=== PATIENT | female | born 1935 | race Two or more races ===

== ENCOUNTER 2019-09-05 03:07 | Inpatient (IN) | payer OTHER ==
[~2019-09-05] VITALS: Ht 165.1 cm; Wt 50.3 kg
--- NOTE | 2019-09-05 03:31 | NUR ---
CALI FROM HOME TO ER BED 10. AAOX4. KENYAN SPEAKING FAMILY AT BEDSIDE TO TRANSLATE. CAME IN ON GURNEY. C/O THROAT PAIN WHICH HAS BEEN AGGREVATED BY COUGHING. 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 PT THE DEVELOPED COUGHING WHICH AGGREVATES HER THROAT PAIN MORE. PT HAS BEEN REPORTED TO HAVE POOR ORAL INTAKE D/T THE PAIN. PT IS NOTED WITH GEN WEAKNESS. WAS ST BEDSIDE FOR ADRY.
--- NOTE | 2019-09-05 03:50 | NUR ---
IV LINE OBTAINED ON THE L AC 20G. BLOOD DRAWN AND GIVEN TO ALIGNER TYPEWRITER AT BEDSIDE
[2019-09-05 03:53] LABS: BASOPHILS % (AUTO) 0.1 % (0.0-2.0); EOSINOPHILS % (AUTO) 0.1 % (0.0-6.0); HEMATOCRIT 28 % (33-45); HEMOGLOBIN 8.5 g/dL (11.5-14.8); LYMPHOCYTES # (AUTO) 0.3 /CMM (0.8-4.8); LYMPHOCYTES % (AUTO) 2.4 % (20.0-44.0); MEAN CORPUSCULAR HGB CONC 30 g/dl (31.0-36.0); MEAN CORPUSCULAR VOLUME 73 fL (82-100); MONOCYTES # (AUTO) 0.6 /CMM (0.1-1.30); MONOCYTES % (AUTO) 4.5 % (2.0-12.0); NEUTROPHILS # (AUTO) 12.3 /CMM (1.8-8.9); NEUTROPHILS % (AUTO) 92.9 % (43.0-81.0); PLATELET COUNT (AUTO) 230 /CMM (150-450); RED BLOOD CELL COUNT(AUTO) 3.85 MIL/uL (4.0-5.2); WHITE BLOOD COUNT (AUTO) 13.2 K/uL (4.3-11.0)
[2019-09-05] MEDS ORDERED: IV NS 0.9% 1,000 ML IV PRN (04:00)
[2019-09-05 04:01] LABS: CALCIUM, SERUM 8.4 mg/dL (8.5-10.1); CARBON DIOXIDE 23 mmol/L (21-32); CHLORIDE 105 mmol/L (98-107); CREATININE 1.9 mg/dL (0.6-1.3); GLUCOSE 171 mg/dL (74-106); POTASSIUM 4.6 mmol/L (3.5-5.1); SODIUM SERUM 137 mmol/L (136-145); UREA NITROGEN, BLOOD 34 mg/dL (7-18)
[2019-09-05] MEDS ORDERED: MORPHINE SULFATE INJ 2 MG/ML DISP.SYRIN ONE (04:21)
[2019-09-05] MEDS ORDERED: ONDANSETRON HCL/PF 4 MG/2 ML VIAL ONE (04:22)
[2019-09-05] MEDS ORDERED: ACETAMINOPHEN 325 MG TABLET PO PRN (04:30)
[2019-09-05] MEDS ORDERED: Z GUARD REMEDY 2 OZ OINT TP PRN (04:30)
[2019-09-05] MEDS ORDERED: DEXTROSE 50%-WATER 50 ML DISP.SYRIN IV PRN (04:30)
[2019-09-05] MEDS ORDERED: ZOLPIDEM TARTRATE 5 MG TABLET PO PRN (04:30)
[2019-09-05] MEDS ORDERED: HYDROCODONE/APAP 5/325MG 1 EACH TABLET PO PRN (04:30)
[2019-09-05] MEDS ORDERED: MAGNESIUM HYDROXIDE 30 ML UDC PO PRN (04:30)
[2019-09-05] MEDS ORDERED: MORPHINE SULFATE INJ 2 MG/ML DISP.SYRIN IV ONE (04:30)
[2019-09-05] MEDS ORDERED: CEFTRIAXONE 1 G in IV D5W 50 ML IV ONE (05:00)
[2019-09-05] MEDS ORDERED: ONDANSETRON HCL/PF 4 MG/2 ML VIAL IV ONE (05:00)
[2019-09-05] MEDS ORDERED: AZITHROMYCIN 500 MG in IV D5W 250 ML IV ONE (05:00)
[2019-09-05] MEDS ORDERED: CEFTRIAXONE 1GM BAG (ER ONLY) 50 ML IV ONE (05:24)
[2019-09-05] MEDS ORDERED: AZITHROMYCIN 500 MG VIAL ONE (05:24)
[2019-09-05] MEDS: BLOOD SUGAR DIAGNOSTIC 1 EACH STRIP IN SCH ×4 (07:30→21:53)
--- NOTE | 2019-09-05 07:44 | NUR ---
REPROT GIVEN TO VIKRAM BONILLA FOR LEANDER
--- NOTE | 2019-09-05 07:46 | NUR ---
PT ENDORSED TO VIKRAM WALKER FOR LEANDER
[2019-09-05 08:30] VITALS: BP 127/81
--- NOTE | 2019-09-05 08:30 | NUR ---
RN ADMITTING NOTES ADMITTED A 83 YEARS OLD, F TO UNIT VIA GURNEY ACCOMPANIED BY FAMILY AND E.R NURSE . A/O X4 AMHARIC SPEAKING ONLY, FAMILY AT BEDSIDE TO TRANSLATE. NO COMPLAIN OF PAIN AT THIS TIME, NOT IN ANY SIGNS OF DISTRESS. BREATHING EVEN AND UNLABORED. ON TELE MONITORING WITH CURRENT READING OF AFIB WITH EPISODE OF PVC, HR OF 102. V/S TAKEN AND RECORDED. REFUSED PHYSICAL ASSESSMENT, PER FAMILY NO OPEN WOUNDS. ABDOMEN SOFT, NON-DISTENDED WITH POSITIVE BOWEL SOUNDS ON FOUR QUADRANTS. LUNGS CLEAR ON AUSCULTATION. IV ACCESS ON LAC #20, INTACT AND PATENT. IVF TO BE STARTED. SAFETY MEASURES INITIATED, BED PLACED IN LOW LOCKED POSITION WITH SIDE RAILS UP X2. CALL LIGHT PLACED WITHIN EASY REACH OF PATIENT. WILL CONTINUE TO MONITOR.
[2019-09-05] MEDS: IV NS 0.9% 1,000 ML IV PRN (08:40)
[2019-09-05] MEDS ORDERED: IBUP-1953 PO (09:24)
[2019-09-05] MEDS ORDERED: CALC-20 PO (09:24)
[2019-09-05] MEDS ORDERED: INSU100V10 SQ (09:24)
[2019-09-05] MEDS ORDERED: ALEN70TA6 PO (09:24)
[2019-09-05] MEDS ORDERED: HYDR100T27 PO (09:24)
[2019-09-05] MEDS ORDERED: BENA40TA8 PO (09:24)
[2019-09-05] MEDS ORDERED: ACET500C4 PO (09:24)
[2019-09-05] MEDS ORDERED: NPH,100V2 SQ (09:24)
[2019-09-05] MEDS ORDERED: AMLO5TAB4 PO (09:24)
[2019-09-05] MEDS: OSELTAMIVIR PHOSPHATE 75 MG CAPSULE PO SCH (11:00)
[2019-09-05] MEDS: INSULIN REGULAR, HUMAN 100 UNIT/ML 3 ML VIAL SQ PRN ×3 (11:12→21:54)
[2019-09-05 12:43] LABS: ABG BASE EXCESS -7.3 mmol/L; ABG OXYGEN SATURATION 88.4 % (92.0-98.5); ABG PCO2 38.2 mmHg (35.0-45.0); ABG PH 7.303 (7.350-7.450); ABG PO2 66.6 mmHg (75.0-100.0); AaDO2 37.4 mmHg; COHb 0.5 % (0.5-1.5); MetHb 0.5 % (0.0-1.5); O2Hb 87.5 % (94.0-97.0); SITE, ABG Right Radial; VENT MODE, BG Room Air
[2019-09-05 16:00] VITALS: BP 130/85
--- NOTE | 2019-09-05 18:43 | NUR ---
RN CLOSING NOTES PATIENT IN BED RESTING COMFORTABLY IN MODERATE HIGH BACK REST. A/O X3. OMANI SPEAKING ONLY. NO SIGNS OF DISTRESS NOTED THROUGHOUT THE SHIFT. IV FLUIDS ON LEFT AC #20 WITH NS @75ML/HR. PATENT AND INTACT. ON TELE MONITORING WITH CURRENT READING OF A-FIB, HR OF 110. NO COMPLAIN OF PAIN AT THIS TIME. SAFETY MEASURES IN PLACE, BED IN LOW LOCKED POSITION WITH SIDE RAILS UP X2. CALL LIGHT WITHIN EASY REACH. WILL ENDORSE TO VIDEO ENGINEER NURSE FOR LEANDER.
--- NOTE | 2019-09-05 19:00 | NUR ---
RN OPENING NOTES Received patient asleep on bed, easily awaken. On RA, no SOB/respiratory distress noted at this time. No s/sx of discomfort. On tele monitor with Afib noted, no other unusualities noted. On IVF with NS @ 75ml/hr as ordered, infusing well. Kept on bed clean, dry and comfortable. Call light within easy reach. On fall and aspiration precautions. Will continue to monitor accordingly.
[2019-09-05 20:00] VITALS: BP 143/93
[2019-09-05 21:25] VITALS: BP 143/93
--- NOTE | 2019-09-05 21:55 | NUR ---
RN NOTES Patient's blood sugar 141mg/dl. Patient on NPO. Held Insulin at this time. Patient denies any discomfort. Instructed on s/sx of hypoglycemia, and to notified HCP immediately for any unusualities, patient verbalized understanding. Will continue to monitor accordingly.
[2019-09-06] VITALS (23 sets, daily range): BP systolic 69–160; BP diastolic 41–97
--- NOTE | 2019-09-06 01:25 | NUR ---
RN NOTES PATIENT REMAINED AFIB HR 120-135. PATIENT DENIES ANY DISCOMFORT, PATIENT CLAIMED FEELING HEART PALPITATIONS. V/S CHECKED, WNL. NOTIFIED INTENSIVE CARE NURSE MD WITH ORDERS NOTED AND CARRIED OUT.
[2019-09-06] MEDS ORDERED: DILTIAZEM HCL 25 MG IV IV ONE (01:30)
[2019-09-06] MEDS ORDERED: DILTIAZEM HCL 25 MG IV ONE (01:46)
[2019-09-06 01:58] LABS: BASOPHILS % (AUTO) 0.4 % (0.0-2.0); EOSINOPHILS % (AUTO) 0.1 % (0.0-6.0); HEMATOCRIT 30 % (33-45); LYMPHOCYTES # (AUTO) 0.8 /CMM (0.8-4.8); LYMPHOCYTES % (AUTO) 10.6 % (20.0-44.0); MEAN CORPUSCULAR HGB CONC 30 g/dl (31.0-36.0); MEAN CORPUSCULAR VOLUME 74 fL (82-100); MONOCYTES # (AUTO) 0.5 /CMM (0.1-1.30); NEUTROPHILS # (AUTO) 6.2 /CMM (1.8-8.9); NEUTROPHILS % (AUTO) 81.9 % (43.0-81.0); PLATELET COUNT (AUTO) 211 /CMM (150-450); RED BLOOD CELL COUNT(AUTO) 4.01 MIL/uL (4.0-5.2); WHITE BLOOD COUNT (AUTO) 7.6 K/uL (4.3-11.0)
[2019-09-06] MEDS: ONDANSETRON HCL/PF 4 MG/2 ML VIAL IVP PRN ×2 (02:04→08:32)
[2019-09-06] MEDS: IV NS 0.9% 1,000 ML IV PRN (02:05)
[2019-09-06 02:09] LABS: ALANINE AMINOTRANSFERASE 39 U/L (12-78); ALKALINE PHOSPHATASE 69 U/L (46-116); ASPARTATE AMINOTRANSFERASE 73 U/L (15-37); BILIRUBIN,TOTAL 1.3 mg/dL (0.2-1.0); CALCIUM, SERUM 7.9 mg/dL (8.5-10.1); CARBON DIOXIDE 21 mmol/L (21-32); CHLORIDE 107 mmol/L (98-107); CREATININE 3.3 mg/dL (0.6-1.3); GLUCOSE 127 mg/dL (74-106); MAGNESIUM 1.9 mg/dL (1.8-2.4); PHOSPHORUS 5.8 mg/dL (2.5-4.9); SODIUM SERUM 140 mmol/L (136-145); TOTAL PROTEIN, SERUM 6.7 g/dL (6.4-8.2); UREA NITROGEN, BLOOD 43 mg/dL (7-18)
[2019-09-06 02:20] LABS: CHOLESTEROL 76 mg/dL (<200); CREATINE KINASE, TOTAL 71 U/L (26-192); HDL CHOLESTEROL 27 mg/dL (40-60); LDL 43 mg/dL (0-99); TRIGLYCERIDES 46 mg/dL (30-150)
[2019-09-06] MEDS ORDERED: Calcium Gluconate 1GM/10ML 4.65 MEQ in IV NS 0.9% 40 ML IV ONE (03:30)
--- NOTE | 2019-09-06 04:38 | NUR ---
RN NOTES taping supervisor notified for Calcium gluconate - supply to be provided per Katey.
[2019-09-06] MEDS ORDERED: Calcium Gluconate 0.465 MEQ/ML VIAL IV ONE (05:27)
--- NOTE | 2019-09-06 07:00 | NUR ---
Tele/RN Opening Note Received patient in bed, AO x 1-2, able to responds all stimuli. Respiratory even/unlabored, and in room air, no SOB or respiratory distress observed. Skin is warm to touch, kept lower bed position with elevated HOB. Call light within reach, will continue to monitor.
[2019-09-06] MEDS: BLOOD SUGAR DIAGNOSTIC 1 EACH STRIP IN SCH ×4 (07:09→23:41)
--- NOTE | 2019-09-06 07:24 | NUR ---
RN CLOSING NOTES Patient asleep on bed, easily awaken. On RA, no SOB/respiratory distress noted. With complaints of abdominal pain, patient unable to tolerated PO meds. On tele monitor with Afib noted. All due meds given as ordered. All nursing needs attended. Kept on bed clean, dry and comfortable. On fall and aspiration precautions. Call light within easy reach. Endorsed.
[2019-09-06] MEDS: HEPARIN SODIUM, PORCINE 5000 UNITS/1 ML VIAL SQ SCH ×2 (08:31→20:54)
[2019-09-06] MEDS: CEFTRIAXONE 1 G in IV D5W 50 ML IV SCH (08:31)
--- NOTE | 2019-09-06 09:00 | NUR ---
GENERAL OPERATOR NOTES PATIENT FOUND UNRESPONSIVE. DR. LOMBARDI AT BEDSIDE ORDERS FOR STAT ABG. VS 69/41 PULSE: 121, O2SAT. 77%, RESPIRATION 7. RAPID RESPONSE CALLED. ER MD CALLED BY DR. LOMBARDI TO INTUBATE PATIENT. PATIENT PLACED ON 10L OXYGEN. 0905: RAPID RESPONSE TEAM AT BEDSIDE. ER MD AT BEDSIDE PREPARING TO INTUBATE. DR. TILLMAN AT BEDSIDE WITH PATIENT. 0910: PATIENT INTUBATED. SATURATING AT 100%. BP AT 85/52 PULSE 110 . 0915: PATIENT TO BE TRANSFERRED TO ROOM 260, VS: 92/56 PULSE 115. ANEUDY WEBER MADE AWARE OF PATIENTS CONDITION. 0920: PATIENT TRANSFERRED TO ROOM 260 REPORT GIVEN AT BEDSIDE.
--- NOTE | 2019-09-06 09:15 | NUR ---
TRAINING PROFESSIONAL NOTES CALLED PATIENTS DAUGHTER AND LEFT A VOICE MAIL.
--- NOTE | 2019-09-06 09:20 | NUR ---
RN NOTE: Received patient from [facility] and patient was brought to Room 260 with VIKRAM Leiva with the RTs upon transport. Bedside report was received from VIKRAM Leiva upon transfer. No family at the bedside but upon report the patient's daughter was called about the change of condition of the patient. Patient was asleep and intubated with ETT 7.5 and was attached to the lip line at 22cm. Patient was placed on a comfortable position. Patient was placed on (B) soft wrist restraints to prevent accident self-extubation or pulling of lines. Called and informed Dr. Adonay Carnes about this in order to get a sedation medication for the patient. (L) AC 20G was noted in placed with NS@75ml/hr. Patient was attached to the bedside monitor for continuous monitoring. RT Stephens was at the bedside and was trying to draw ABG. And per , draw ABG after 30 mins after intubation. CN Sundeep inserted (R) hand 20G and (R) forearm 18G. Carcamo catheter was placed for intake/output monitoring. Bed alarmed and locked at all times. Needs anticipated.
--- NOTE | 2019-09-06 09:38 | NUR ---
RT NOTE PT INTUBATED PER MD ORDER. 7.5 ETT 22 CM AT LIP. CUFF INFLATED. ETT SECURE. VENTILATOR SETTINGS FOLLOW AC 16 450 100% +5. ALARMS SET PER PROTOCOL AND AUDIBLE. VENT PLUGGED IN TO RED OUTLET. AMBU BAG AT BED SIDE. Addendum: 09/06/19 at 0940 by PATSY LOMELI RT Amended: Links added.
[2019-09-06] MEDS ORDERED: PROPOFOL 10MG/ML 50ML 50 ML IV PRN (10:00)
--- NOTE | 2019-09-06 10:00 | NUR ---
VISUAL MERCHANDISING DIRECTOR NOTES PATIENTS DAUGHTER MADE AWARE OF PATIENTS TRANSFER.
--- NOTE | 2019-09-06 10:00 | NUR ---
RN NOTE: Adonay Carnes DNP was aware of the patient's condition at this time including the uncontrolled A. fib HR= 104. And Adonay Carnes DNP gave no new order. Will continue to monitor the patient's heart rhythm.
[2019-09-06] MEDS: PROPOFOL 100 ML IV PRN ×2 (10:08→20:29)
[2019-09-06 10:28] LABS: ABG BASE EXCESS -15.6 mmol/L; ABG OXYGEN SATURATION 99.2 % (92.0-98.5); ABG PCO2 23.7 mmHg (35.0-45.0); ABG PH 7.248 (7.350-7.450); ABG PO2 388.3 mmHg (75.0-100.0); COHb 0.3 % (0.5-1.5); MetHb 0.4 % (0.0-1.5); O2Hb 98.5 % (94.0-97.0); PEEP,BG 5 cm H2O; SITE, ABG Right Radial; VENT MODE, BG AC 16 450 100% +5; VT, ABG 450 mL
[2019-09-06] MEDS ORDERED: SODIUM POLYSTYRENE SULFONATE 15 G/60 ML BOTTLE NG ONE (10:30)
[2019-09-06] MEDS: AZITHROMYCIN 500 MG in IV D5W 250 ML IV SCH (10:45)
--- NOTE | 2019-09-06 11:30 | NUR ---
RN NOTE: Patient's daughter Laina Wren present at the bedside and gave her an updated regarding the patient's condition and plan of care. Full dentures were placed on the denture cap and was returned to the family to bring at home.
[2019-09-06] MEDS: OSELTAMIVIR PHOSPHATE 75 MG CAPSULE PO SCH (11:44)
[2019-09-06 13:43] LABS: ABG BASE EXCESS -14.9 mmol/L; ABG PCO2 23.9 mmHg (35.0-45.0); ABG PH 7.262 (7.350-7.450); ABG PO2 158.3 mmHg (75.0-100.0); AaDO2 171.3 mmHg; COHb 0.3 % (0.5-1.5); O2Hb 96.7 % (94.0-97.0); PEEP,BG 5 cm H2O; SITE, ABG Right Radial; VT, ABG 450 mL
[2019-09-06] MEDS ORDERED: POTASSIUM CHLORIDE 10 MEQ/50 ML PREMIXED IVPB FOR PERIPHERAL LINE IV ONE (14:30)
[2019-09-06] MEDS ORDERED: DEXTROSE 50%-WATER 50 ML DISP.SYRIN IV PRN (15:00)
[2019-09-06] MEDS ORDERED: GLUCERNA 1.2 1,000 ML BOTTLE NG PRN (15:00)
[2019-09-06] MEDS: INSULIN REGULAR, HUMAN 100 UNIT/ML 3 ML VIAL SQ PRN ×3 (15:22→23:44)
[2019-09-06] MEDS ORDERED: Sodium Acetate 150 MEQ in IV D5W 1,000 ML IV PRN (15:30)
[2019-09-06] MEDS: SOD FERRIC GLUC 125 MG in IV NS 0.9% 100 ML IV SCH (15:31)
--- NOTE | 2019-09-06 16:31 | NUR ---
RT PT RECEIVED INTUBATED VIA 7.5 ETT @ 22' LIPLINE AND ON [facility] VENT W CHARTED SETTINGS. VENT IS PLUGGED INTO RED OUTLET W [facility] AT [facility]. ALARMS ARE SET AND AUDIBLE. PT IS STABLE. NO RESPIRATORY DISTRESS NOTED T/O SHIFT. Addendum: 09/06/19 at 1742 by JULIO ELIAS RT Amended: Links added.
--- NOTE | 2019-09-06 18:00 | NUR ---
RN NOTE: Called and spoke with Ian, pharmacist and clarified with him regarding the order for the changed of IV fluid. According to him sodium acetate was not available and he changed the order to sodium bicarbonate in replacement.
--- NOTE | 2019-09-06 18:00 | NUR ---
RN NOTE: Patient placed on droplet precaution while pending for the influenza test.
[2019-09-06] MEDS: GLUCERNA 1.2 1,000 ML BOTTLE NG PRN (18:08)
[2019-09-06] MEDS: Sodium Bicarbonate 150 MEQ in IV D5W 1,000 ML IV PRN (18:10)
--- NOTE | 2019-09-06 19:10 | NUR ---
RN NOTE: Bedside report was given to VIKRAM Smith for continuity of care. Patient sedated and intubated and was placed on (B) soft wrist restraint to prevent the patient from pulling or self-extubating. HOB elevated. OGT feeding of Glucerna 1.2 @ 25ml/hr and patient was tolerating it well. Patient had 1 large amount of liquid stool after receiving Kayexalate per MD order. And IVF of Sodium acetate 150 meq @125ml/hr was being infused to the patient. Called and followed up with Tita manager parking regarding the BMP draw for the patient. And per Tita, she will be sending a laboratory clerk to draw the blood. Endorsed this to VIKRAM Smith to follow-up.
--- NOTE | 2019-09-06 19:20 | NUR ---
RN OPENING NOTES RECEIVED PATIENT IN BED, SEDATED. MECHANICAL VENT SETTINGS: AC 16, TV 450, FIO2 40%, PEEP 5. SATURATING 100% AT THE MOMENT, NO SOB OR RESPIRATORY DISTRESS NOTED. ON TELE MONITOR CONTROLLED AFIB WITH HR 80'S. IV SITES RIGHT HAND 20G AND RIGHT FA 18G BOTH FLUSHING AND PATENT; PROPOFOL RUNNING AT 15MCG, AND SODIUM BICARB 125ML/HR, NO INFILTRATION NOTED. BILATERAL SOFT WRIST RESTRAINTS NOTED FOR PT SAFETY. MENDOZA CATH INTACT. SAFETY MEASURES IN PLACE, BED IN LOW AND LOCKED POSITION, SIDE RAILS UP X2, CALL LIGHT WITHIN EASY REACH, HOB ELEVATED. ISOLATION PRECAUTION NOTED IN PLACE. WILL CONTINUE TO MONITOR CLOSELY.
[2019-09-06 21:20] LABS: CALCIUM, SERUM 7.8 mg/dL (8.5-10.1); CARBON DIOXIDE 20 mmol/L (21-32); CHLORIDE 107 mmol/L (98-107); GLUCOSE 231 mg/dL (74-106); POTASSIUM 5.2 mmol/L (3.5-5.1); SODIUM SERUM 141 mmol/L (136-145); UREA NITROGEN, BLOOD 54 mg/dL (7-18)
--- NOTE | 2019-09-06 21:30 | NUR ---
RN NOTES PATIENT OUTPUT LOW 15ML SINCE 1899. PT ON IVF. BLADDER NOTED TO BE SLIGHTLY DISTENDED, MENDOZA CATHETER FLUSHED AND NOTED TO BE PATENT. CHECKED OUTPUT WITH BLADDER SCANNER: 57ML. WILL CONT TO MONITOR PT CLOSELY.
[2019-09-07] VITALS (42 sets, daily range): BP systolic 98–163; BP diastolic 59–101
[2019-09-07] MEDS: Sodium Bicarbonate 150 MEQ in IV D5W 1,000 ML IV PRN (02:16)
[2019-09-07 04:50] LABS: BASOPHILS % (AUTO) 0.3 % (0.0-2.0); EOSINOPHILS % (AUTO) 0.7 % (0.0-6.0); HEMATOCRIT 28 % (33-45); HEMOGLOBIN 8.6 g/dL (11.5-14.8); LYMPHOCYTES # (AUTO) 0.9 /CMM (0.8-4.8); LYMPHOCYTES % (AUTO) 11.1 % (20.0-44.0); MEAN CORPUSCULAR HGB CONC 31 g/dl (31.0-36.0); MEAN CORPUSCULAR VOLUME 72 fL (82-100); MONOCYTES # (AUTO) 0.5 /CMM (0.1-1.30); MONOCYTES % (AUTO) 6.9 % (2.0-12.0); NEUTROPHILS # (AUTO) 6.3 /CMM (1.8-8.9); PLATELET COUNT (AUTO) 189 /CMM (150-450); RED BLOOD CELL COUNT(AUTO) 3.86 MIL/uL (4.0-5.2); WHITE BLOOD COUNT (AUTO) 7.7 K/uL (4.3-11.0)
[2019-09-07 05:02] LABS: ALANINE AMINOTRANSFERASE 52 U/L (12-78); ALBUMIN 2.4 g/dL (3.4-5.0); ALKALINE PHOSPHATASE 70 U/L (46-116); ASPARTATE AMINOTRANSFERASE 84 U/L (15-37); BILIRUBIN,TOTAL 0.7 mg/dL (0.2-1.0); CALCIUM, SERUM 7.5 mg/dL (8.5-10.1); CARBON DIOXIDE 23 mmol/L (21-32); CHLORIDE 105 mmol/L (98-107); CREATININE 4.2 mg/dL (0.6-1.3); GLUCOSE 228 mg/dL (74-106); PHOSPHORUS 6.3 mg/dL (2.5-4.9); POTASSIUM 4.1 mmol/L (3.5-5.1); SODIUM SERUM 140 mmol/L (136-145); TOTAL PROTEIN, SERUM 5.5 g/dL (6.4-8.2); UREA NITROGEN, BLOOD 59 mg/dL (7-18)
[2019-09-07] MEDS: BLOOD SUGAR DIAGNOSTIC 1 EACH STRIP IN SCH ×3 (05:46→17:12)
[2019-09-07] MEDS: INSULIN REGULAR, HUMAN 100 UNIT/ML 3 ML VIAL SQ PRN ×3 (05:48→17:13)
--- NOTE | 2019-09-07 07:16 | NUR ---
RN CLOSING NOTES PATIENT IN BED, SEDATED. NO ACUTE CHANGES THROUGHOUT SHIFT. MECHANICAL VENT SETTINGS ORDERED, SATURATING 100% AT THE MOMENT, NO SOB OR RESPIRATORY DISTRESS NOTED. ON TELE MONITOR CONTROLLED AFIB WITH HR 80'S. IV SITES RIGHT HAND 20G AND RIGHT FA 18G BOTH FLUSHING AND PATENT; PROPOFOL RUNNING AT 15MCG, AND SODIUM BICARB 125ML/HR, NO INFILTRATION NOTED. TUBE FEEDING RUNNING AT 35ML/HR, NO RESIDUAL NOTED. BILATERAL SOFT WRIST RESTRAINTS NOTED FOR PT SAFETY. MENDOZA CATH INTACT. KEPT PT CLEAN AND DRY. REPOSITIONED PT Q2H. SAFETY MEASURES IN PLACE, BED IN LOW AND LOCKED POSITION, SIDE RAILS UP X2, CALL LIGHT WITHIN EASY REACH, HOB ELEVATED. ISOLATION PRECAUTION NOTED IN PLACE. ENDORSED TO AM RN FOR LEANDER.
--- NOTE | 2019-09-07 07:48 | NUR ---
TIMING MACHINE OPERATOR NOTE PATIENT IN BED SEDATED ,ON PROPOFOL DRIP AT THIS TIME, WITH MENDOZA CATH TO GRAVITY WITH SMALL AMT OF URINE NOTED , VENT SETTING ORDERED, RT AT BEDSIDE SUCTION DONE , WITH ETT 7.5 TO LIP SIZE 23 CM , ON OJ TUBE ON GLUCERNA AT 35 ML PER HOUR , BED IN LOWEST AND LOCKED POSITION, ON NA BICARB AT 125 ML PER HOUR AT THIS TIME , WILL CONT TO MONITOR,O2 SAT AT THIS TIME 100% ON TELE MONITOR AFIB 91,
[2019-09-07 08:41] LABS: ABG BASE EXCESS 0.3 mmol/L; ABG PCO2 38.2 mmHg (35.0-45.0); ABG PH 7.427 (7.350-7.450); ABG PO2 93.1 mmHg (75.0-100.0); AaDO2 148.2 mmHg; COHb 0.2 % (0.5-1.5); MetHb 0.7 % (0.0-1.5); O2Hb 95.1 % (94.0-97.0); SITE, ABG Right Radial
--- NOTE | 2019-09-07 08:50 | NUR ---
CHRONOGRAPH OPERATOR NOTE ON DIPRIVAN VOCATION SEDATION, RASHEEDA AWAKE AND RESPONSE TO VERBAL AND TACTILE STIMULI ,BOTH EYE OPED ABLE UNDERSTANDS VERBAL COMMAND
[2019-09-07] MEDS: HEPARIN SODIUM, PORCINE 5000 UNITS/1 ML VIAL SQ SCH ×2 (09:05→21:09)
[2019-09-07] MEDS: AMLODIPINE BESYLATE 5 MG TABLET PO SCH (09:06)
[2019-09-07] MEDS: CALCIUM CARB 600MG /VIT D 1 EACH TABLET PO SCH (09:06)
[2019-09-07] MEDS: CEFTRIAXONE 1 G in IV D5W 50 ML IV SCH (09:10)
--- NOTE | 2019-09-07 09:42 | NUR ---
MANAGER ENTERPRISE NOTE DR ARMAS AT BEDSIDE AWARE NO URAN OUTPUT AT THIS TIME
--- NOTE | 2019-09-07 09:59 | NUR ---
OCEANOGRAPHER PHYSICAL NOTE BECOME MORE AGITATED DR TILLMAN AT BEDSIDE OK TO INCREASE DIPRIVAN DRIP AT 20 MG\MIN Addendum: 09/07/19 at 1048 by XIMENA ROLLE RN NO BUVERITO MURPHY AVAILABLE CALLED PHARMACY SPOKE WITH KYLIE CORDOBA THAT WILL BRING IT
[2019-09-07] MEDS ORDERED: BUMETANIDE INJ 4 MG in IV D5W 24 ML IV ONE (10:00)
[2019-09-07] MEDS: PROPOFOL 100 ML IV PRN (10:03)
[2019-09-07] MEDS: AZITHROMYCIN 500 MG in IV D5W 250 ML IV SCH (10:03)
[2019-09-07] MEDS: OSELTAMIVIR PHOSPHATE 75 MG CAPSULE PO SCH (10:37)
--- NOTE | 2019-09-07 11:16 | NUR ---
INKER AND OPAQUER NOTE DR TRAN AT BEDSIDE AWARE PATIENT CONDITION ,VERY SMALL URINE OUTPUT, OK TO CONT ON VENT SETTING AT THIS TIME Addendum: 09/07/19 at 1538 by XIMENA ROLLE RN DR TRAN AWARE THAT TROP 0.155
--- NOTE | 2019-09-07 11:39 | NUR ---
HEAD OF PRODUCT NOTE BUMEX DRIP STILL NOT AVAILABLE ,SPOKE WITH SCOOTER FROM PHARMACY, STATED WILL BRING SOON
[2019-09-07 12:06] LABS: PTH, INTACT 116 pg/mL (15-65)
[2019-09-07 13:06] LABS: *SPE A/G RATIO 0.9 (0.7-1.7); *SPE ALBUMIN 2.9 g/dL (2.9-4.4); *SPE ALPHA-1-GLOBULIN 0.3 g/dL (0.0-0.4); *SPE ALPHA-2-GLOBULIN 0.7 g/dL (0.4-1.0); *SPE BETA GLOBULIN 0.8 g/dL (0.7-1.3); *SPE GLOBULIN, TOTAL 3.4 g/dL (2.2-3.9); *SPE M-SPIKE Not Observed g/dL (Not Observed); *SPEGAMMA GLOBULIN 1.5 g/dL (0.4-1.8)
[2019-09-07] MEDS ORDERED: IV D5/ 0.9% NACL 1,000 ML IV PRN (14:30)
[2019-09-07] MEDS: SOD FERRIC GLUC 125 MG in IV NS 0.9% 100 ML IV SCH (14:53)
--- NOTE | 2019-09-07 15:22 | NUR ---
PRIVACY DIRECTOR NOTE SPOKE WITH DR TILLMAN NOTIFIED THAT PH TODAY FROM BLOOD GAS 7.427 HCO3 24.6 THAT ON IVF NA BICARB AT 125 ML PER HOUR ALSO AWARE THAT LACTIC ACID 2.4 WITH ORDER START D5 NS AT 75 ML PER HOUR WILL F\U
--- NOTE | 2019-09-07 15:31 | NUR ---
PROPERTY MANAGEMENT ACCOUNTANT NOTE UNABLE TO REMOVE RESTRAIN ,PATIENT AT RISK TO REMOVE ALL LINES
--- NOTE | 2019-09-07 16:49 | NUR ---
ASPHALT TAR AND GRAVEL ROOFER NOTE NEW HL ON LT FA INSERTED RACHID 22WITH GOD BLOOD REARM ALSO PER DR CHELSEA RIOS TO INSERT MID LINE
--- NOTE | 2019-09-07 17:18 | NUR ---
RT NOTE: PATIENT RECEIVED ORALLY INTUBATED WITH 7.5 ETT SECURED AT 22 CM MID LIP LINE VIA ANCHOR FAST ON PB 840 VENT. ALARMS VERIFIED AND AUDIBLE. SUCTIONED AND LAVAGED SMALL AMOUNT OF BLOODY SECRETIONS. VENT PLUGGED INTO RED OUTLET. AMBU BAG AT [facility].
--- NOTE | 2019-09-07 17:22 | NUR ---
MANAGER TRADE NOTE UA CALLECT
--- NOTE | 2019-09-07 17:22 | NUR ---
INSULATION WORKER FURNACE INSTALLER NOTE UA COLLECTED ORDERED ,CONT ON BUMEX DRIP BUT VERY SMALL URINE AMT OUTPUT
[2019-09-07 18:10] LABS: BILIRUBIN,DIRECT 0.2 mg/dL (0.0-0.2)
[2019-09-07 18:11] LABS: APPEARANCE,URINE SL CLOUDY (CLEAR); BILIRUBIN,URINE NEGATIVE (NEGATIVE); BLOOD, URINE LARGE Ery/uL (NEGATIVE); COLOR,URINE YELLOW (YELLOW); KETONES,URINE NEGATIVE (NEGATIVE); LEUKOCYTE ESTERASE ,URINE LARGE (NEGATIVE); NITRITE, URINE NEGATIVE (NEGATIVE); PROTEIN,URINE >=300 mg/dl (NEGATIVE); UGLUCOSE NEGATIVE (NEGATIVE); UROBILINOGEN,URINE 0.2 EU/dL (0.2)
[2019-09-07 18:21] LABS: CREATININE, URINE 16.2 MG/DL (30.0-125.0); URINE TOTAL PROTEIN 208.6 mg/dL (0-11.9)
[2019-09-07 18:23] LABS: BACTERIA,URINE 2+ /HPF (None Seen); RBC,URINE 51-80 /HPF (0-2); WBC,URINE 51-80 /HPF (0-3)
[2019-09-07 18:24] LABS: SQUAMOUS EPITHELIAL CELL,UR Few /HPF (None Seen)
[2019-09-07 18:34] LABS: EOSINOPHIL,URINE None Seen
--- NOTE | 2019-09-07 18:42 | NUR ---
BANK EXAMINER NOTE BP 166/[address] ZAMORA LEFT A MESSAGE , WILL AWAIT FOR RETURN CALL
--- NOTE | 2019-09-07 18:58 | NUR ---
BLADE GRADER OPERATOR NOTE DR TRAN CALLED BACK NOTIFIED THAT BP 166-170/82 AND LACTIC ACID 2.5 WITH ORDER GIVEN HYDRALAZINE AND REPEAT LACTIC ACID IN MORNING ,OK CONT IVF ORDERED
[2019-09-07] MEDS ORDERED: hydrALAZINE HCL 25 MG TABLET PO PRN (19:00)
[2019-09-08] VITALS (53 sets, daily range): BP systolic 101–176; BP diastolic 62–100
[2019-09-08] MEDS: INSULIN REGULAR, HUMAN 100 UNIT/ML 3 ML VIAL SQ PRN ×4 (00:42→17:34)
[2019-09-08] MEDS: BLOOD SUGAR DIAGNOSTIC 1 EACH STRIP IN SCH ×4 (00:42→17:32)
--- NOTE | 2019-09-08 07:00 | NUR ---
RN INITIAL NOTE RECEIVED BEDSIDE REPORT, PATIENT IN BED. SEDATED. [facility]LL AT 100%. CONTROLLED AFIB AT 78 FROM THE MONITOR. HAS MENDOZA CATH, WAS NOT GETTING ENOUGH OUTPUT PER NOC SHIFT. HAS CLEAR AND YELLOW URINE. ON NGT WITH GLUCERNA, NO RESIDUAL NOTED. HAS A RIGHT UA MIDLINE WITH PROPOFOL AT 15 MCG AND D5NS AT 75 ML/HR. HAS A RIGHT WRIST #22, ON TKO. WILL CONTINUE TO MONITOR CLOSELY Addendum: 09/08/19 at 0922 by SANTIAGO ORELLANA RN OGT*
[2019-09-08] MEDS: GLUCERNA 1.2 1,000 ML BOTTLE NG PRN (07:37)
[2019-09-08] MEDS: AMLODIPINE BESYLATE 5 MG TABLET PO SCH (08:27)
[2019-09-08] MEDS: CALCIUM CARB 600MG /VIT D 1 EACH TABLET PO SCH (08:27)
[2019-09-08] MEDS: HEPARIN SODIUM, PORCINE 5000 UNITS/1 ML VIAL SQ SCH ×2 (08:29→20:40)
[2019-09-08] MEDS: CEFTRIAXONE 1 G in IV D5W 50 ML IV SCH (08:30)
[2019-09-08 08:36] LABS: ABG BASE EXCESS -0.6 mmol/L; ABG PCO2 35.1 mmHg (35.0-45.0); ABG PO2 108.9 mmHg (75.0-100.0); AaDO2 135.9 mmHg; COHb 0.1 % (0.5-1.5); MetHb 0.6 % (0.0-1.5); O2Hb 96.3 % (94.0-97.0); PEEP,BG 5 cm H2O; SITE, ABG Right Radial; VT, ABG 450 mL
[2019-09-08] MEDS: AZITHROMYCIN 500 MG in IV D5W 250 ML IV SCH (09:55)
--- NOTE | 2019-09-08 10:00 | NUR ---
RN NOTE DR TRAN AT BEDSIDE, AWARE THAT PATIENT IS NOT HAVING ENOUGH URINE OUTPUT. ALSO AWARE THAT IVF HAS BEEN DISCONTINUED PER DR TILLMAN.
[2019-09-08] MEDS: OSELTAMIVIR PHOSPHATE 75 MG CAPSULE PO SCH (11:35)
[2019-09-08] MEDS: PROPOFOL 100 ML IV PRN (13:30)
[2019-09-08] MEDS: SOD FERRIC GLUC 125 MG in IV NS 0.9% 100 ML IV SCH (13:53)
--- NOTE | 2019-09-08 18:00 | NUR ---
RN NOTE ANGE FARRELL MADE AWARE THAT PATIENT WAS NEGATIVE ON INFLUENZA AND ASKED IF WANTED TO DC TAMIFLU. SHE SAID SHE WOULD NEED TO CHECK THE PATIENT'S CHART FIRST. MADE HER AWARE REGARDING URINE CX RESULTS CAME BACK GRAM NEGATIVE RODS.
--- NOTE | 2019-09-08 18:52 | NUR ---
RN NOTE PATIENT IN BED, NON VERBAL. SEDATED WITH PROPOFOL AT 15MCG. PATIENT ON ETT, SATURATING WELL AT 100%. STABLE THROUGHOUT THE SHIFT. NO SIGNS OF ANY DISTRESS. REPOSITIONED PER PROTOCOL. ALL MEDS GIVEN. ALL NEEDS MET. FAMILY WAS AT BEDSIDE THIS AFTERNOON. UPDATED REGARDING THE PATIENT'S STATUS. PER MD, NO ACUTE HD NEEDED AT THIS TIME. PATIENT ON BILATERAL SOFT RESTRAINTS. RENEWED AT 1000. BED LOCKED AND IN LOWEST POSITION. REPORT GIVEN TO HYACINTH CHAN CN
--- NOTE | 2019-09-08 19:11 | NUR ---
ICU/RN-RECEIVED PT. POST SEDATED ON THE VENT PER ETT ON AC MODE. SATS.-100% EKG-ATRIAL FIBRILLATION W/ UNIFOCAL PVCS. POST SEDATED ON DIPRIVAN DRIP AT 15MCG/MIN. NO GARSIA. W/ BILATERAL SOFT WRIST RESTRAINTS ON. ON TUBE FEEDS. ANTONIA. WELL AFEBRILE. NO S/S OF PAIN OR DISCOMFORT.
--- NOTE | 2019-09-08 20:00 | NUR ---
ICU/RN-HYPOTHERMIC T-95.4/F. KEPT WARM, COVERED W/ BLANKETS.
[2019-09-09] VITALS (25 sets, daily range): BP systolic 103–164; BP diastolic 31–116
[2019-09-09] MEDS: BLOOD SUGAR DIAGNOSTIC 1 EACH STRIP IN SCH ×4 (01:18→18:12)
[2019-09-09] MEDS: INSULIN REGULAR, HUMAN 100 UNIT/ML 3 ML VIAL SQ PRN ×4 (01:20→18:14)
[2019-09-09] MEDS: PROPOFOL 100 ML IV PRN ×2 (02:31→14:55)
[2019-09-09] MEDS: GLUCERNA 1.2 1,000 ML BOTTLE NG PRN (03:51)
[2019-09-09 05:05] LABS: BASOPHILS % (AUTO) 0.5 % (0.0-2.0); EOSINOPHILS % (AUTO) 4.5 % (0.0-6.0); HEMATOCRIT 28 % (33-45); HEMOGLOBIN 8.5 g/dL (11.5-14.8); LYMPHOCYTES # (AUTO) 0.6 /CMM (0.8-4.8); LYMPHOCYTES % (AUTO) 8.4 % (20.0-44.0); MEAN CORPUSCULAR HGB CONC 31 g/dl (31.0-36.0); MEAN CORPUSCULAR VOLUME 73 fL (82-100); MONOCYTES # (AUTO) 0.6 /CMM (0.1-1.30); MONOCYTES % (AUTO) 7.8 % (2.0-12.0); NEUTROPHILS # (AUTO) 5.8 /CMM (1.8-8.9); NEUTROPHILS % (AUTO) 78.8 % (43.0-81.0); PLATELET COUNT (AUTO) 156 /CMM (150-450); RED BLOOD CELL COUNT(AUTO) 3.77 MIL/uL (4.0-5.2); WHITE BLOOD COUNT (AUTO) 7.4 K/uL (4.3-11.0)
[2019-09-09 05:20] LABS: CALCIUM, SERUM 7.3 mg/dL (8.5-10.1); CARBON DIOXIDE 25 mmol/L (21-32); CHLORIDE 101 mmol/L (98-107); CREATININE 5.3 mg/dL (0.6-1.3); GLUCOSE 182 mg/dL (74-106); POTASSIUM 3.9 mmol/L (3.5-5.1); SODIUM SERUM 138 mmol/L (136-145); UREA NITROGEN, BLOOD 66 mg/dL (7-18)
--- NOTE | 2019-09-09 07:00 | NUR ---
FARROWING WORKER OPENING PATIENT SEDATED. ON PROFOFOL @ 15 MCG. PATIENT IS ON TELE MONITOR WITH CONTROLLED AFIB. PATIENT SKIN IS INTACT. PATIENT HAS NG TUBE WITH GLUCERNA @ 45 ML / HR. PATIENT HAS GANESH MIDDING WITH PROPOFOL @ 15 MCG. RFA #18 ,RH#20 LFA#22. ALL LINES PATENT AND INTACT. BED LOCKED AND LOWEST POSITION CALL LIGHT WITH IN REACH ALL SAFETY MEASURE IMPLEMENTED PER HOSPITAL POLICY.
--- NOTE | 2019-09-09 07:55 | NUR ---
RT PATIENT REC'D ORALLY INTUBATED ON [facility] V[facility] ANTONIA WELL. VENT ALARMS CHECKED + AUDIBLE. AMBU BAG AT HOB Addendum: 09/09/19 at 1325 by BAYLEE BARKER RT Amended: Links added.
[2019-09-09] MEDS: CALCIUM CARB 600MG /VIT D 1 EACH TABLET PO SCH (08:57)
[2019-09-09] MEDS: AMLODIPINE BESYLATE 5 MG TABLET PO SCH (08:57)
[2019-09-09] MEDS: HEPARIN SODIUM, PORCINE 5000 UNITS/1 ML VIAL SQ SCH ×2 (08:58→21:30)
--- NOTE | 2019-09-09 08:59 | NUR ---
[address] PATROL - DR DR LARSON SAW PATIENT
[2019-09-09] MEDS: CEFTRIAXONE 1 G in IV D5W 50 ML IV SCH (09:00)
[2019-09-09] MEDS ORDERED: hydrALAZINE HCL 25 MG TABLET NG PRN (10:17)
[2019-09-09] MEDS ORDERED: MAGNESIUM HYDROXIDE 30 ML UDC NG PRN (10:18)
--- NOTE | 2019-09-09 11:00 | NUR ---
INSPECTOR HEALTH CARE FACILITIES FAMILY AT BED SIDE.
[2019-09-09] MEDS: OSELTAMIVIR PHOSPHATE 75 MG CAPSULE PO SCH (11:08)
[2019-09-09] MEDS: AZITHROMYCIN 500 MG in IV D5W 250 ML IV SCH (11:09)
[2019-09-09] MEDS: SOD FERRIC GLUC 125 MG in IV NS 0.9% 100 ML IV SCH (14:41)
--- NOTE | 2019-09-09 18:45 | NUR ---
MOTOR VEHICLE LICENSE CLERK CLOSING PATIENT IS SEDATED. PATIENT IS RESTING COMFORABLY IN BED. PATIENT SKIN IS INTACT. PATIENT HAS BI LATER HAND EDEMA. PATIENT HAS GANESH MIDLINE WITH PROPOFOL 15MCG. RFA 18#. RH 20#, LFA#22. INTACT PATIENT WAS TURN Q2H . NO SIGNS OF SOB, NO PAIN, NO ACUTE RESPIRATORY DISTRESS. BED LOCKED AND LOWEST POSITION CALL LIGHT WITH IN REACH ALL SAFETY MEASURE IMPLEMENTED PER HOSPITAL POLICY
[2019-09-10] VITALS (29 sets, daily range): BP systolic 114–174; BP diastolic 63–103
[2019-09-10] MEDS: BLOOD SUGAR DIAGNOSTIC 1 EACH STRIP IN SCH ×4 (00:07→17:45)
[2019-09-10] MEDS: INSULIN REGULAR, HUMAN 100 UNIT/ML 3 ML VIAL SQ PRN ×3 (00:10→17:46)
[2019-09-10] MEDS: PROPOFOL 100 ML IV PRN ×2 (04:00→17:21)
[2019-09-10 04:57] LABS: BASOPHILS % (AUTO) 0.5 % (0.0-2.0); EOSINOPHILS % (AUTO) 3.1 % (0.0-6.0); HEMATOCRIT 28 % (33-45); HEMOGLOBIN 8.6 g/dL (11.5-14.8); LYMPHOCYTES # (AUTO) 0.8 /CMM (0.8-4.8); LYMPHOCYTES % (AUTO) 9.9 % (20.0-44.0); MEAN CORPUSCULAR HGB CONC 31 g/dl (31.0-36.0); MEAN CORPUSCULAR VOLUME 74 fL (82-100); MONOCYTES # (AUTO) 0.6 /CMM (0.1-1.30); MONOCYTES % (AUTO) 7.8 % (2.0-12.0); NEUTROPHILS # (AUTO) 6.2 /CMM (1.8-8.9); NEUTROPHILS % (AUTO) 78.7 % (43.0-81.0); PLATELET COUNT (AUTO) 152 /CMM (150-450); RED BLOOD CELL COUNT(AUTO) 3.79 MIL/uL (4.0-5.2); WHITE BLOOD COUNT (AUTO) 7.9 K/uL (4.3-11.0)
[2019-09-10 05:08] LABS: CALCIUM, SERUM 7.9 mg/dL (8.5-10.1); CARBON DIOXIDE 26 mmol/L (21-32); CHLORIDE 100 mmol/L (98-107); GLUCOSE 150 mg/dL (74-106); POTASSIUM 4.6 mmol/L (3.5-5.1); SODIUM SERUM 136 mmol/L (136-145); UREA NITROGEN, BLOOD 73 mg/dL (7-18)
--- NOTE | 2019-09-10 07:30 | NUR ---
ORALLY INTUBATED ON THE VENT, ON DIPRIVAN DRIP AT 15 MCG/KG/MIN. BP STABLE. WILL INITIATE VENT WEANING TRIAL TODAY.
--- NOTE | 2019-09-10 08:00 | NUR ---
SPOKE TO DR. BOGGS REGARDING WORSENING RENAL FUNCTION. OLIGURIC AT THIS TIME.
--- NOTE | 2019-09-10 09:00 | NUR ---
ONGOING VENT WEANING. DIPRIVAN OFF AT THIS TIME. PATIENT BARELY OPENS EYES TO TOUCH. UNABLE TO FOLLOW COMMANDS IN TURKISH.
[2019-09-10 09:33] LABS: ABG OXYGEN SATURATION 94.1 % (92.0-98.5); ABG PCO2 34.7 mmHg (35.0-45.0); ABG PH 7.437 (7.350-7.450); ABG PO2 75.2 mmHg (75.0-100.0); AaDO2 170.1 mmHg; COHb 0.1 % (0.5-1.5); MetHb 0.4 % (0.0-1.5); O2Hb 93.6 % (94.0-97.0); PEEP,BG 5 cm H2O; SITE, ABG Right Radial; VENT MODE, BG SIMV PS 15; VT, ABG 450 mL
[2019-09-10] MEDS: CALCIUM CARB 600MG /VIT D 1 EACH TABLET NG SCH (09:44)
[2019-09-10] MEDS: CEFTRIAXONE 1 G in IV D5W 50 ML IV SCH (09:44)
[2019-09-10] MEDS: AMLODIPINE BESYLATE 5 MG TABLET PO SCH (09:45)
[2019-09-10] MEDS: AZITHROMYCIN 250 MG TABLET NG SCH (09:45)
[2019-09-10] MEDS: HEPARIN SODIUM, PORCINE 5000 UNITS/1 ML VIAL SQ SCH ×2 (09:47→22:06)
--- NOTE | 2019-09-10 10:30 | NUR ---
RECEIVED A CALL FROM ANGE KURTZ REGARDING MD ASK HIM TO INSERT HD CATH.
--- NOTE | 2019-09-10 11:00 | NUR ---
HD CATHETER PLACEMENT CONSENT FROM PATIENT DAUGHTER JEANETH.
[2019-09-10] MEDS: OSELTAMIVIR PHOSPHATE 75 MG CAPSULE PO SCH (11:02)
--- NOTE | 2019-09-10 12:00 | NUR ---
HD CATHETER PLACED IN RIGHT FEMORAL BY HAILEY KURTZ.
--- NOTE | 2019-09-10 12:40 | NUR ---
HEMODIALYSIS CATHETER INSERTION [place] Consultant: [facility] Phan Casiano NP Straight Trialysis Catheter 13f 30cm Patient has order to insert HD catheter. Informed consent is signed and in chart. Insertion site determined to be right femoral vein. Patient was prepped using sterile technique with chlorhexidine. Patient was covered with a sterile drape and I donned a sterile gown. The insertion site was anesthetized with 1% lidocaine. Needle inserted under ultrasound guidance. Guidewire inserted through needle and needle removed. Small ashley made at insertion site of approximately 2 mm. Dilator inserted over guidewire then removed. Catheter inserted fully over guidewire. Guidewire removed. Blood return at all three ports. Caps placed on each port. Catheter secured with 2 sutures. Biopatch placed and covered with tegaderm. No s/s of complication. Tolerated well with minimal blood loss. Ebl 3ml.
--- NOTE | 2019-09-10 13:00 | NUR ---
PATIENT GAGGING / COUGHING CONTINUOUSLY ON THE VENT-DR. TILLMAN MADE AWARE. OKAY TO PLACE BACK PATIENT ON FULL VENT SUPPORT. VENT CHANGES DONE BY . NEELIMA MURPHY RESTERTED PER PROTOCOL.
[2019-09-10] MEDS: SOD FERRIC GLUC 125 MG in IV NS 0.9% 100 ML IV SCH (14:06)
--- NOTE | 2019-09-10 15:30 | NUR ---
HEMODIALYSIS INITIATED BY HD RN.
[2019-09-10] MEDS: IV NS 0.9% 250 ML IV PRN (17:21)
--- NOTE | 2019-09-10 18:00 | NUR ---
HD COMPLETED AND TOLERATED WELL WITH 2L OUT. BR REMAINS STABLE. BS 146-2 UNITS REGULAR INSULIN PER SS. CONTINUE PLAN OF CARE.
--- NOTE | 2019-09-10 19:56 | NUR ---
Patient intubated on vent via endotracheal tube. On Diprivan and sedated. midline clean and dry. Femoral HD cath is clean and dry. Restraints on with good pulses. will continue to monitor.
--- NOTE | 2019-09-10 20:07 | NUR ---
RT NOTE Pt rec'd orally intubated via ETT sz #7.5 secured at 22CM at the lip line on [facility] vent on AC mode. No resp distress or SOB noted. Sx'd for thick mod amt of pale yellow secretions. Alarms are set and audible, Vent plugged into red outlet. Ambu bag bedside. Addendum: 09/10/19 at 2008 by CHRISTINE HODGE RT Amended: Links added.
[2019-09-11] VITALS (47 sets, daily range): BP systolic 106–160; BP diastolic 51–93
[2019-09-11] MEDS: INSULIN REGULAR, HUMAN 100 UNIT/ML 3 ML VIAL SQ PRN ×3 (00:31→17:32)
[2019-09-11] MEDS: BLOOD SUGAR DIAGNOSTIC 1 EACH STRIP IN SCH ×4 (00:32→17:28)
[2019-09-11 05:01] LABS: BASOPHILS % (AUTO) 0.4 % (0.0-2.0); EOSINOPHILS % (AUTO) 1.2 % (0.0-6.0); HEMATOCRIT 30 % (33-45); HEMOGLOBIN 9.2 g/dL (11.5-14.8); LYMPHOCYTES # (AUTO) 0.6 /CMM (0.8-4.8); LYMPHOCYTES % (AUTO) 6.9 % (20.0-44.0); MEAN CORPUSCULAR HGB CONC 31 g/dl (31.0-36.0); MEAN CORPUSCULAR VOLUME 76 fL (82-100); MONOCYTES # (AUTO) 0.6 /CMM (0.1-1.30); MONOCYTES % (AUTO) 6.9 % (2.0-12.0); NEUTROPHILS # (AUTO) 6.8 /CMM (1.8-8.9); NEUTROPHILS % (AUTO) 84.6 % (43.0-81.0); PLATELET COUNT (AUTO) 141 /CMM (150-450)
[2019-09-11 05:16] LABS: CALCIUM, SERUM 8.8 mg/dL (8.5-10.1); CARBON DIOXIDE 27 mmol/L (21-32); CHLORIDE 101 mmol/L (98-107); CREATININE 4.5 mg/dL (0.6-1.3); GLUCOSE 211 mg/dL (74-106); MAGNESIUM 2.2 mg/dL (1.8-2.4); PHOSPHORUS 6.3 mg/dL (2.5-4.9); POTASSIUM 5.2 mmol/L (3.5-5.1); SODIUM SERUM 137 mmol/L (136-145); UREA NITROGEN, BLOOD 53 mg/dL (7-18)
[2019-09-11] MEDS: PROPOFOL 100 ML IV PRN ×2 (05:36→21:01)
--- NOTE | 2019-09-11 07:21 | NUR ---
RN NOTE: Received patient in bed, intubated and sedated with ETT 7.5 attached to lipline at 22 cm with (R) UA midline infusing Diprivan @15mcg/min to keep the patient sedated. HOB elevated. Breathing even and unlabored saturating 100%. No facial grimacing noted. OGT in placed with tube feeding of Glucerna 1.2 @45ml/hr with no residual. Tube feeding goal was met per dietitian's recommendation. Afebrile. Skin intact and warm to touch. Noted on a [employer] 1st step mattress. Carcamo catheter in placed with very minimal amount of yellow urine draining to gravity. Patient on hemodialysis at this time. (R) femoral HD catheter was noted intact with dry dressing. Bed alarmed and locked at all times. Needs anticipated.
[2019-09-11] MEDS: CEFTRIAXONE 1 G in IV D5W 50 ML IV SCH (08:54)
[2019-09-11] MEDS: AZITHROMYCIN 250 MG TABLET NG SCH (09:02)
[2019-09-11] MEDS: CALCIUM CARB 600MG /VIT D 1 EACH TABLET NG SCH (09:03)
[2019-09-11] MEDS: AMLODIPINE BESYLATE 5 MG TABLET PO SCH (09:03)
[2019-09-11] MEDS: HEPARIN SODIUM, PORCINE 5000 UNITS/1 ML VIAL SQ SCH ×2 (09:42→21:55)
[2019-09-11] MEDS: OSELTAMIVIR PHOSPHATE 75 MG CAPSULE PO SCH (10:11)
[2019-09-11] MEDS: GLUCERNA 1.2 1,000 ML BOTTLE NG PRN (10:30)
--- NOTE | 2019-09-11 12:37 | NUR ---
RN NOTE: Patient's daughter Laina Wren was at the bedside and she signed the informed consent for the US guided thoracentesis scheduled on Friday. Witnessed by assigned RN and filed on patient's chart. Daughter Laina has no question regarding the procedure.
--- NOTE | 2019-09-11 13:43 | NUR ---
RT NOTE SPUTUM SAMPLE COLLECTED WITH NO COMPLICATIONS. RN AWARE. Addendum: 09/11/19 at 1344 by SANCHEZ ACOSTA RT Amended: Links added.
--- NOTE | 2019-09-11 16:22 | NUR ---
RT NOTE PT RECEIVED INTUBATED WITH 7.5 ET TUBE @ 22 CM. AMBU BAG @ BEDSIDE. SX DONE, ET TUBE SECURED AND PATENT ON MID LIP LINE. MINIMAL SECRETIONS NOTED. NO RESP DISTRESS NOTED AT THIS TIME. WILL MONITOR. Addendum: 09/11/19 at 1623 by TAMMI SWAN RT Amended: Links added.
--- NOTE | 2019-09-11 19:25 | NUR ---
RN NOTE: Hand off report sheet to Ed for continuity of care. Patient remained sedated and intubated with OGT feeding of Glucerna 1.2 @45ml/hr, tolerating well.
[2019-09-12] VITALS (43 sets, daily range): BP systolic 32–160; BP diastolic 20–124
[2019-09-12] MEDS: BLOOD SUGAR DIAGNOSTIC 1 EACH STRIP IN SCH ×5 (01:05→23:35)
[2019-09-12] MEDS: INSULIN REGULAR, HUMAN 100 UNIT/ML 3 ML VIAL SQ PRN ×4 (01:08→23:38)
--- NOTE | 2019-09-12 04:00 | NUR ---
patient body temp is 96.0 F RECTAL. PATIENT COVERED WITH 2 WORM BLANKETS AND RECHECKED RECTALLY AFTER 30MIN AND BODY TEMP IS 96.4. ORDER OF ASIA HUGGER IS IN PLACE, NURSING SWAMPER SOLEDAD NOTIFIED. AWAITING FOR DELIVERY OF ASIA HUGGER. WILL CONTINUE TO MONITOR PATIENT.
[2019-09-12 05:12] LABS: BASOPHILS % (AUTO) 0.4 % (0.0-2.0); EOSINOPHILS % (AUTO) 2.5 % (0.0-6.0); HEMATOCRIT 30 % (33-45); HEMOGLOBIN 9.5 g/dL (11.5-14.8); LYMPHOCYTES # (AUTO) 0.9 /CMM (0.8-4.8); LYMPHOCYTES % (AUTO) 10.6 % (20.0-44.0); MEAN CORPUSCULAR HGB CONC 31 g/dl (31.0-36.0); MEAN CORPUSCULAR VOLUME 77 fL (82-100); MONOCYTES # (AUTO) 0.6 /CMM (0.1-1.30); MONOCYTES % (AUTO) 7.5 % (2.0-12.0); NEUTROPHILS # (AUTO) 6.7 /CMM (1.8-8.9); PLATELET COUNT (AUTO) 149 /CMM (150-450); RED BLOOD CELL COUNT(AUTO) 3.94 MIL/uL (4.0-5.2); WHITE BLOOD COUNT (AUTO) 8.5 K/uL (4.3-11.0)
[2019-09-12 06:08] LABS: CALCIUM, SERUM 8.6 mg/dL (8.5-10.1); CARBON DIOXIDE 28 mmol/L (21-32); CHLORIDE 104 mmol/L (98-107); CREATININE 3.4 mg/dL (0.6-1.3); GLUCOSE 120 mg/dL (74-106); POTASSIUM 5.2 mmol/L (3.5-5.1); SODIUM SERUM 139 mmol/L (136-145); UREA NITROGEN, BLOOD 43 mg/dL (7-18)
--- NOTE | 2019-09-12 07:30 | NUR ---
ICU/RN AM SHIFT INITIAL NOTES RECEIVED PT SEDATED. NO ACUTE CHANGE OF CONDITION NOTED. ON VENTILATOR, ETT IN PLACED WITH 22 ON LIP, RATES SET PRESCRIBED, AC 16, TV 500, FIO2% 50 & PEEP 5. RESPIRATIONS EVEN & UNLABORED, LUNG SOUNDS CLEAR, SATURATING @ 100%, SUCTIONED FOR AIRWAY CLEARANCE. ON TELE WITH CONTROLLED A-FIB WITH PVCs, HR 96. FEMORAL HD CATHETER INTACT AND CLEAN. MIDLINE PATENT WITH NO S/S OF INFECTION, WITH ON GOING INFUSION OF PROPOFOL @ 10MCG/KG/MIN. MENDOZA CATHETER INTACT WITH DARK YELLOW URINE OUTPUT. OG FEEDING @ 45CC/HR, NO GASTRIC RESIDUAL NOTED, FLUSHED, PATENT. NOTED WITH PITTING EDEMA ON HANDS, BILATERAL SOFT WRIST RESTRAINTS IN PLACED, RELEASED TO CHECK FOR CIRCULATION AND COMFORT THEN PLACED BACK. PT WITH WARMING BLANKET AND COMFORTABLE. CL WITHIN REACHED AND SAFETY MAINTAINED. ON GOING MONITORING.
[2019-09-12 08:13] LABS: ABG BASE EXCESS 1.1 mmol/L; ABG OXYGEN SATURATION 90.9 % (92.0-98.5); ABG PH 7.475 (7.350-7.450); ABG PO2 65.9 mmHg (75.0-100.0); AaDO2 180.2 mmHg; COHb 0.2 % (0.5-1.5); MetHb 0.5 % (0.0-1.5); O2Hb 90.3 % (94.0-97.0); PEEP,BG 5 cm H2O; SITE, ABG Right Brachial; VENT MODE, BG AC 40%; VT, ABG 450 mL
[2019-09-12] MEDS: CALCIUM CARB 600MG /VIT D 1 EACH TABLET NG SCH (08:38)
[2019-09-12] MEDS: CEFTRIAXONE 1 G in IV D5W 50 ML IV SCH (08:38)
[2019-09-12] MEDS: AMLODIPINE BESYLATE 5 MG TABLET PO SCH (08:39)
[2019-09-12] MEDS: HEPARIN SODIUM, PORCINE 5000 UNITS/1 ML VIAL SQ SCH ×3 (08:39→20:20)
--- NOTE | 2019-09-12 08:39 | NUR ---
ICU/RN HEPARIN - HOLD SCHEDULED HEPARIN HELD, D/T THORACENTESIS IN AM PRIMARY AWARE.
--- NOTE | 2019-09-12 08:55 | NUR ---
ICU/RN HEPARIN - GIVE ORDER CLARIFIED PER DR. TRAN TO GIVE SCHEDULED HEPARIN AND HOLD THORACENTESIS.
[2019-09-12] MEDS: OSELTAMIVIR PHOSPHATE 75 MG CAPSULE PO SCH (11:58)
[2019-09-12] MEDS: GLUCERNA 1.2 1,000 ML BOTTLE NG PRN (12:53)
--- NOTE | 2019-09-12 15:49 | NUR ---
ICU/RN ROUNDS NO ACUTE CHANGE OF CONDITION. PT SUCTIONED AND REPOSITIONED. MONITORING CONTINUED.
[2019-09-12] MEDS: PROPOFOL 100 ML IV PRN (17:49)
--- NOTE | 2019-09-12 19:08 | NUR ---
ICU/RN AM SHIFT END NOTES NO ACUTE CHANGE OF CONDITION NOTED DURING THE SHIFT. ALL NEEDS MET. PT ENDORSED TO PM SHIFT NURSE TO CONTINUE CARE. CL WITHIN REACHED AND SAFETY MAINTAINED.
--- NOTE | 2019-09-12 19:30 | NUR ---
FERTILIZER LOADER INITIAL SHIFT NOTES RECEIVED PATIENT IN BED, SEDATED ON DIPRIVAN GTT, CURRENTLY @ 10MCG/KG/MIN, ORALLY INTUBATED ON MECHANICAL VENTILATION, TOLERATING WELL, FREE FROM ANY SIGNS AND SYMPTOMS OF RESPIRATORY DISTRESS. GANESH MIDLINE IS PATENT AND INTACT, FREE FROM ANY SIGNS AND SYMPTOMS OF INFILTRATION OR PHLEBITIS. OGT PATENT AND INTACT, ONGOING TUBE FEEDING, NO GASTRIC RESIDUALS AT THIS TIME, TOLERATING WELL. MENDOZA CATHETER PATENT AND INTACT, DRAINING CLEAR YELLOW URINE VIA GRAVITY. HOB KEPT ELEVATED FOR ASPIRATION PRECAUTIONS. WILL MONITOR CLOSELY
[2019-09-13] VITALS (27 sets, daily range): BP systolic 118–171; BP diastolic 55–101
--- NOTE | 2019-09-13 | NUR ---
HAND HOSE CUTTER NOTES FULL BED BATH RENDERED, TOLERATED, NO ACUTE CHANGES, REMAINS ON DIPRIVAN GTT @ 15 MCG/KG/MIN, WILL MONITOR FOR CHANGES
[2019-09-13] MEDS: PROPOFOL 100 ML IV PRN (00:15)
[2019-09-13 05:00] LABS: BASOPHILS % (AUTO) 0.5 % (0.0-2.0); EOSINOPHILS % (AUTO) 1.3 % (0.0-6.0); HEMATOCRIT 30 % (33-45); HEMOGLOBIN 9.1 g/dL (11.5-14.8); LYMPHOCYTES # (AUTO) 1.1 /CMM (0.8-4.8); LYMPHOCYTES % (AUTO) 11.6 % (20.0-44.0); MEAN CORPUSCULAR HGB CONC 31 g/dl (31.0-36.0); MEAN CORPUSCULAR VOLUME 79 fL (82-100); MONOCYTES # (AUTO) 0.8 /CMM (0.1-1.30); MONOCYTES % (AUTO) 9.1 % (2.0-12.0); NEUTROPHILS % (AUTO) 77.5 % (43.0-81.0); PLATELET COUNT (AUTO) 116 /CMM (150-450); RED BLOOD CELL COUNT(AUTO) 3.77 MIL/uL (4.0-5.2); WHITE BLOOD COUNT (AUTO) 9.1 K/uL (4.3-11.0)
[2019-09-13 05:08] LABS: CALCIUM, SERUM 8.5 mg/dL (8.5-10.1); CARBON DIOXIDE 29 mmol/L (21-32); CHLORIDE 101 mmol/L (98-107); CREATININE 3.7 mg/dL (0.6-1.3); GLUCOSE 123 mg/dL (74-106); POTASSIUM 5.2 mmol/L (3.5-5.1); SODIUM SERUM 138 mmol/L (136-145); UREA NITROGEN, BLOOD 54 mg/dL (7-18)
[2019-09-13] MEDS: BLOOD SUGAR DIAGNOSTIC 1 EACH STRIP IN SCH ×4 (05:26→23:51)
[2019-09-13 06:29] LABS: LYMPHOCYTES % (MANUAL) 13 % (16-48); METAMYELOCYTES % 1 % (0-0); MONOCYTES % (MANUAL) 11 % (0-11.0); MYELOCYTES % 3 % (0-0); NEUTROPHILS % (MANUAL) 72 (42-76)
--- NOTE | 2019-09-13 07:00 | NUR ---
PRINTING SPECIALIST CLOSING NOTES PATIENT RESTING IN BED, APPEARS COMFORTABLE. NO ACUTE CHANGES THROUGHOUT THE SHIFT. DIPRIVAN DRIP TITRATED TO 15MCG/KG/MIN. URINE OUTPUT 300ML. WILL ENDORSE THE PATIENT TO THE AM SHIFT NURSE FOR CONTINUITY OF CARE
--- NOTE | 2019-09-13 07:15 | NUR ---
CU/RN AM SHIFT INITIAL NOTES RECEIVED PT SEDATED. NO ACUTE CHANGE OF CONDITION NOTED. PT IS INTUBATED, TRACH TUBE IN PLACED WITH 22 ON LIP, RATES SET PRESCRIBED, AC 16, TV 450, FIO2% 50 & PEEP 5. RESPIRATIONS EVEN & UNLABORED, LUNG SOUNDS CLEAR, SATURATING @ 100%, SUCTIONED FOR AIRWAY CLEARANCE. ON TELE WITH CONTROLLED A-FIB WITH PVCs, HR 82. FEMORAL HD CATHETER INTACT AND CLEAN. MIDLINE PATENT WITH NO S/S OF INFECTION, WITH ON GOING INFUSION OF PROPOFOL @ 15MCG/KG/MIN. MENDOZA CATHETER INTACT WITH DARK YELLOW URINE OUTPUT. OG FEEDING @ 45CC/HR, NO GASTRIC RESIDUAL NOTED, FLUSHED, PATENT. NOTED WITH PITTING EDEMA ON HANDS, BILATERAL SOFT WRIST RESTRAINTS IN PLACED, RELEASED TO CHECK FOR CIRCULATION AND COMFORT THEN PLACED BACK. PROPOFOL DOSED REDUCED TO 10MCG/KG/MIN IN PREPARATION TO WEANING TRIAL TODAY. CL WITHIN REACHED AND SAFETY MAINTAINED. ON GOING MONITORING.
--- NOTE | 2019-09-13 08:30 | NUR ---
ICU/RN WEANING TRIAL PROPOFOL TURNED OFF FOR WEANING TRIAL. SIMV MODE: RATE OF 4, PSV 15 & PEEP 5. CHEST X-RAY RECOMMENDATION TO RETRACTION 2.0CM RELAYED TO DR. TILLMAN, GRAVURE PRINTING MACHINIST MADE AWARE. TRACH TUBE RETRACTED BY 2.5CM ORDERED BY DR. TILLMAN. 19.5 CM ON LIP. ON GOING MONITORING.
[2019-09-13] MEDS: CALCIUM CARB 600MG /VIT D 1 EACH TABLET NG SCH (09:07)
[2019-09-13] MEDS: HEPARIN SODIUM, PORCINE 5000 UNITS/1 ML VIAL SQ SCH (09:07)
[2019-09-13] MEDS: CEFTRIAXONE 1 G in IV D5W 50 ML IV SCH (09:08)
[2019-09-13] MEDS: AMLODIPINE BESYLATE 5 MG TABLET PO SCH (09:08)
--- NOTE | 2019-09-13 10:00 | NUR ---
ICU/PRIMER BOXER PT STARTED ON DIALYSIS TX. PT OFF PROPOFOL. ON GOING MONITORING.
[2019-09-13 10:25] LABS: ABG BASE EXCESS 2.2 mmol/L; ABG OXYGEN SATURATION 92.5 % (92.0-98.5); ABG PCO2 35.8 mmHg (35.0-45.0); ABG PH 7.474 (7.350-7.450); ABG PO2 69.6 mmHg (75.0-100.0); AaDO2 174.4 mmHg; COHb 0.3 % (0.5-1.5); MetHb 0.3 % (0.0-1.5); O2Hb 91.9 % (94.0-97.0); PEEP,BG 5 cm H2O; SITE, ABG Right Radial; VENT MODE, BG SIMV 4 / PS 15; VT, ABG 450 mL
[2019-09-13] MEDS ORDERED: DILTIAZEM HCL IV 125 MG in IV NS 0.9% 100 ML IV PRN (11:30)
[2019-09-13] MEDS ORDERED: DILTIAZEM HCL IV 125 MG in IV D5W 100 ML IV PRN (11:30)
--- NOTE | 2019-09-13 11:32 | NUR ---
ICU/RN INCREASED PULSE RATE - DIALYSIS PT NOTED TO HAVE INCREASED HEART RATE WHILE ON DIALYSIS. HR 130s. NOTED ORDERED CARDIZEM IV. MONITORING.
[2019-09-13] MEDS: OSELTAMIVIR PHOSPHATE 75 MG CAPSULE PO SCH (11:48)
--- NOTE | 2019-09-13 12:21 | NUR ---
ICU/RN HD - COMPLETED DIALYSIS TX COMPLETED, REMOVED 1L OF FLUIDS. PULSE RATE DECREASED TO THE HIGH 80s. TX TOLERATED. NOTED WITH LARGE AMOUNTS OF CLEAR THICK SECRETIONS, FREQUENT SUCTIONING NEEDED. MONITORING CONTINUED.
[2019-09-13] MEDS: INSULIN REGULAR, HUMAN 100 UNIT/ML 3 ML VIAL SQ PRN ×3 (12:23→23:49)
[2019-09-13] MEDS: GLUCERNA 1.2 1,000 ML BOTTLE NG PRN (12:42)
--- NOTE | 2019-09-13 16:55 | NUR ---
ICU/RN AFTERNOON ROUNDS PM CARE PROVIDED. NO CHANGE OF CONDITION. MONITORING CONTINUED.
--- NOTE | 2019-09-13 19:24 | NUR ---
ICU/RN AM SHIFT END NOTES NO ACUTE CHANGE OF CONDITION NOTED. PT OFF PROPOFOL BUT NOT FULLY AWAKE, LETHARGIC. BILATERAL SOFT WRIST RESTRAINTS IN PLACED. ON SIMV MODE. ALL NEEDS MET. PT ENDORSED TO PM NURSE TO CONTINUE CARE. CL WITHIN REACHED AND SAFETY MAINTAINED.
--- NOTE | 2019-09-13 20:18 | NUR ---
ICU/RN OPENING NOTE RECEIVED PATIENT INTUBATED AND ON VENTILATOR WITH 75/22IN, PEEP OF 5, AND TV450 WITH FI02 OF 50%. PATIENT IS ON RESTRAINTS WILL CONTINUE TO MONITOR. PATIENT ON THE MONITOR SHOWING SINUS A-FIB. HAS A GANESH MIDLINE S/L AND MENDOZA ATTACHED WITH NO SIGN OF OBSTRUCTION. PATIENT HAS ORAL GTUBE FEEDINGS WITH NO RESIDUAL AND GLUCERNA RUNNING AT 45ML/HR. ALL SAFETY PRECAUTIONS HAVE BEEN APPLIED. VENTILATOR ON RED OUTLET. WILL CONTINUE TO MONITOR PATIENT FOR LEANDER.
[2019-09-14] VITALS (61 sets, daily range): BP systolic 122–178; BP diastolic 51–128
--- NOTE | 2019-09-14 03:06 | NUR ---
RT Pt remains on [facility] vent t/o the night w/ no resp distress noted. ETT secure and patent. Addendum: 09/14/19 at 0308 by IDA HINSON RT Amended: Links added.
[2019-09-14 04:50] LABS: BASOPHILS % (AUTO) 0.6 % (0.0-2.0); EOSINOPHILS % (AUTO) 0.7 % (0.0-6.0); HEMATOCRIT 30 % (33-45); HEMOGLOBIN 9.2 g/dL (11.5-14.8); LYMPHOCYTES # (AUTO) 0.7 /CMM (0.8-4.8); LYMPHOCYTES % (AUTO) 9.2 % (20.0-44.0); MEAN CORPUSCULAR HGB CONC 31 g/dl (31.0-36.0); MEAN CORPUSCULAR VOLUME 79 fL (82-100); MONOCYTES # (AUTO) 0.6 /CMM (0.1-1.30); NEUTROPHILS # (AUTO) 6.6 /CMM (1.8-8.9); NEUTROPHILS % (AUTO) 82.5 % (43.0-81.0); PLATELET COUNT (AUTO) 88 /CMM (150-450); RED BLOOD CELL COUNT(AUTO) 3.77 MIL/uL (4.0-5.2)
[2019-09-14 04:55] LABS: CALCIUM, SERUM 8.5 mg/dL (8.5-10.1); CARBON DIOXIDE 30 mmol/L (21-32); CHLORIDE 101 mmol/L (98-107); CREATININE 2.7 mg/dL (0.6-1.3); GLUCOSE 128 mg/dL (74-106); POTASSIUM 4.9 mmol/L (3.5-5.1); SODIUM SERUM 138 mmol/L (136-145); UREA NITROGEN, BLOOD 42 mg/dL (7-18)
[2019-09-14 05:19] LABS: LYMPHOCYTES % (MANUAL) 7 % (16-48); MONOCYTES % (MANUAL) 3 % (0-11.0); NEUTROPHILS % (MANUAL) 90 (42-76)
[2019-09-14] MEDS: BLOOD SUGAR DIAGNOSTIC 1 EACH STRIP IN SCH ×4 (05:44→23:36)
[2019-09-14] MEDS: INSULIN REGULAR, HUMAN 100 UNIT/ML 3 ML VIAL SQ PRN ×3 (05:48→23:37)
--- NOTE | 2019-09-14 07:00 | NUR ---
ICU/RN OPENING NOTE RECEIVED PATIENT INTUBATED AND ON VENTILATOR , ON SIMV MODE, PT IS ALERT AND FOLLOWS SIMPLE COMMAND,ON TELE A.FIB HR IN 70'S , R UPPER ARM MIDLINE SITE CLEAN, DRY AND INTACT, MENDOZA DRAINING TO GRAVITY GLUCERNA AT 45CC/HR RUNNING VIA OGT , PT TOLERATING WELL, NO RESIDUAL NOTED, SMALL BLOODY DRAINAGE NOTED AT THE R FEMORAL HD CATH SITE, PRESSURE DRESSING APPLIED, CONTINUE TO MONITOR, ALL SAFETY PRECAUTIONS HAVE BEEN APPLIED. SR UP x3, CALL LIGHT WITHIN EASY REACH, BED LOCKED AND IN LOWEST POSITION, VENTILATOR ON RED OUTLET. WILL CONTINUE TO MONITOR PATIENT CLOSELY.
--- NOTE | 2019-09-14 07:19 | NUR ---
ICU/RN CLOSING NOTE PATIENT IN BED WITH NO SIGN OF ANY DISTRESS. CONTINUES TO BE ON VENT TOLERATING SIMV WELL. PATIENT TOLERATING ORAL GTUBE FEEDINGS OF GLUCERNA 1.2 AT 45ML/HR. IV ACCESS ON THE GANESH MIDLINE FLUSHING WELL. ALL SAFETY PRECAUTIONS APPLIED. ENDORSED PATIENT TO MORNING SHIFT NURSE FOR LEANDER.
--- NOTE | 2019-09-14 07:43 | NUR ---
RT Pt received orally intubated on mechanical ventilation with noted settings. Vent alarms are set and is plugged into red outlet. No SOB or respiratory distress noted. Addendum: 09/14/19 at 0836 by BRY SEALS RT Amended: Links added.
[2019-09-14] MEDS: CALCIUM CARB 600MG /VIT D 1 EACH TABLET NG SCH (08:21)
[2019-09-14] MEDS: CEFTRIAXONE 1 G in IV D5W 50 ML IV SCH (08:21)
[2019-09-14] MEDS: AMLODIPINE BESYLATE 5 MG TABLET PO SCH (08:22)
[2019-09-14 10:07] LABS: ABG BASE EXCESS 2.9 mmol/L; ABG OXYGEN SATURATION 93.6 % (92.0-98.5); ABG PH 7.492 (7.350-7.450); ABG PO2 74.4 mmHg (75.0-100.0); AaDO2 98.4 mmHg; COHb 0.4 % (0.5-1.5); MetHb 0.4 % (0.0-1.5); O2Hb 92.9 % (94.0-97.0); PEEP,BG 5 cm H2O; SITE, ABG Right Radial; VENT MODE, BG SIMV 4 / PS 15; VT, ABG 450 mL
[2019-09-14] MEDS: DILTIAZEM HCL 30 MG TABLET NG SCH ×2 (11:54→17:07)
[2019-09-14] MEDS: GLUCERNA 1.2 1,000 ML BOTTLE NG PRN (11:59)
--- NOTE | 2019-09-14 12:00 | NUR ---
RN NOTES PT STABLE, VSS STABLE, SUPPORTIVE FAMILY AT THE BEDSIDE, CONTINUE TO MONITOR .
--- NOTE | 2019-09-14 16:00 | NUR ---
RN NOTES PT TOLERATING C-PAP MODE WELL, VSS STABLE, CONTINUE TO MONITOR.
--- NOTE | 2019-09-14 18:11 | NUR ---
RN NOTES PT REMAINS INTUBATED, ON CPAP MODE, R FEMORAL HD CATH SITE CLEAN AND DRY , SR UP X3, CALL LIGHT WITHIN EASY REACH, BED LOCKED AND IN LOWEST POSITION, WILL ENDORSE TO SUMMER SCHOOL COORDINATOR NURSE FOR CONTINUITY OF CARE .
--- NOTE | 2019-09-14 19:30 | NUR ---
MANAGER ROOM INITIAL SHIFT NOTES RECEIVED PATIENT IN BED, AWAKE, ALERT X1 TO SELF, UNDERSTANDS [place], SOMETIMES FOLLOWS COMMANDS. ORALLY INTUBATED ON CPAP MODE, TOLERATING WELL, NO RESPIRATORY DISTRESS AT THIS TIME. GANESH ML TKO, PATENT AND INTACT, FLUSHED WITH NS, FREE FROM ANY S/S OF INFILTRATION OR PHLEBITIS. RIGHT FEMORAL HD CATH DRESSING DRY AND INTACT, NO BLEEDING NOTED. MENDOZA CATHETER PATENT AND INTACT, DRAINING VIA GRAVITY. TUBE FEEDING INFUSING WELL, NO GASTRIC RESIDUALS AT THIS TIME. WILL MONITOR
[2019-09-15] VITALS (32 sets, daily range): BP systolic 124–174; BP diastolic 59–99
--- NOTE | 2019-09-15 | NUR ---
SEO MARKETING SPECIALIST NOTES PATIENT NOTED TO BE COUGHING, SETTING OFF VENT. PATIENT DENIES PAIN, AND IS POINTING AT THE ET TUBE. WHEN ASKED IF PATIENT WANTS THE TUBE OUT, PATIENT NODDING YES. EXPLAINED TO PATIENT REGARDING PLAN FOR POSSIBLE EXTUBATION IN THE MORNING. AFTER PATIENT TEACHING RENDERED, PATIENT WENT BACK TO SLEEP. WILL MONITOR
[2019-09-15] MEDS: DILTIAZEM HCL 30 MG TABLET NG SCH ×5 (00:08→18:00)
--- NOTE | 2019-09-15 04:00 | NUR ---
WATERMELON INSPECTOR NOTES BED BATH RENDERED, TOLERATED WELL, SKIN INTACT.
[2019-09-15] MEDS: BLOOD SUGAR DIAGNOSTIC 1 EACH STRIP IN SCH ×4 (06:04→18:17)
[2019-09-15] MEDS: INSULIN REGULAR, HUMAN 100 UNIT/ML 3 ML VIAL SQ PRN ×2 (06:09→12:29)
--- NOTE | 2019-09-15 07:00 | NUR ---
A P SUPERVISOR CLOSING NOTES PATIENT RESTING IN BED, SLEEPING, NO ACUTE DISTRESS AT THIS TIME. ISOLATION PRECAUTIONS OBSERVED, AWAITING DELIVERY OF ISOLATION CART FROM [facility]. PATIENT ENDORSED TO THE DAY SHIFT NURSE FOR CONTINUITY OF CARE, PLAN FOR POSSIBLE EXTUBATION TODAY
[2019-09-15 07:23] LABS: BASOPHILS # (AUTO) 0.1 /CMM (0.0-0.2); BASOPHILS % (AUTO) 0.7 % (0.0-2.0); EOSINOPHILS % (AUTO) 0.6 % (0.0-6.0); HEMATOCRIT 30 % (33-45); HEMOGLOBIN 9.3 g/dL (11.5-14.8); LYMPHOCYTES # (AUTO) 0.7 /CMM (0.8-4.8); LYMPHOCYTES % (AUTO) 8.1 % (20.0-44.0); MEAN CORPUSCULAR HGB CONC 31 g/dl (31.0-36.0); MEAN CORPUSCULAR VOLUME 79 fL (82-100); MONOCYTES # (AUTO) 0.6 /CMM (0.1-1.30); MONOCYTES % (AUTO) 6.3 % (2.0-12.0); NEUTROPHILS # (AUTO) 7.7 /CMM (1.8-8.9); NEUTROPHILS % (AUTO) 84.3 % (43.0-81.0); PLATELET COUNT (AUTO) 101 /CMM (150-450); RED BLOOD CELL COUNT(AUTO) 3.77 MIL/uL (4.0-5.2); WHITE BLOOD COUNT (AUTO) 9.1 K/uL (4.3-11.0)
[2019-09-15 07:35] LABS: ALANINE AMINOTRANSFERASE 24 U/L (12-78); ALBUMIN 2.3 g/dL (3.4-5.0); ALKALINE PHOSPHATASE 106 U/L (46-116); ASPARTATE AMINOTRANSFERASE 29 U/L (15-37); BILIRUBIN,TOTAL 0.3 mg/dL (0.2-1.0); CALCIUM, SERUM 8.2 mg/dL (8.5-10.1); CARBON DIOXIDE 28 mmol/L (21-32); CHLORIDE 100 mmol/L (98-107); CREATININE 2.9 mg/dL (0.6-1.3); GLUCOSE 184 mg/dL (74-106); MAGNESIUM 2.2 mg/dL (1.8-2.4); PHOSPHORUS 5.6 mg/dL (2.5-4.9); POTASSIUM 5.8 mmol/L (3.5-5.1); SODIUM SERUM 136 mmol/L (136-145); TOTAL PROTEIN, SERUM 6.3 g/dL (6.4-8.2); UREA NITROGEN, BLOOD 55 mg/dL (7-18)
--- NOTE | 2019-09-15 08:00 | NUR ---
DRY CLEANER HELPER RECEIVED PT SEDATED ON VENT. COMFORTABLE, ABLE TO ASSIST VENT. TOLERATING TF WELL WITH NO RESIDUALS. REMAINS OFF PRESSORS.
[2019-09-15 08:50] LABS: ABG BASE EXCESS 3.8 mmol/L; ABG OXYGEN SATURATION 95.2 % (92.0-98.5); ABG PCO2 33.9 mmHg (35.0-45.0); ABG PH 7.514 (7.350-7.450); AaDO2 91.1 mmHg; COHb 0.5 % (0.5-1.5); MetHb 0.6 % (0.0-1.5); O2Hb 94.2 % (94.0-97.0); PEEP,BG 5 cm H2O; SITE, ABG Left Radial; VENT MODE, BG CPAP PS 15
[2019-09-15] MEDS: CEFTRIAXONE 1 G in IV D5W 50 ML IV SCH (10:41)
[2019-09-15] MEDS: CALCIUM CARB 600MG /VIT D 1 EACH TABLET NG SCH (10:44)
[2019-09-15] MEDS ORDERED: DC PROPOFOL WHEN EXTUBATED XX PRN (11:00)
--- NOTE | 2019-09-15 12:00 | NUR ---
KOSHER DIETARY SERVICE MANAGER REGULAR INSULIN COVERAGE PER SLIDING SCALE. VSS. SUCTIONED SMALL AMT WHITE SECRETIONS.
[2019-09-15] MEDS: GLUCERNA 1.2 1,000 ML BOTTLE NG PRN (13:27)
--- NOTE | 2019-09-15 14:00 | NUR ---
MEDICATION NURSE REMAINS AWAKE AND INTERACTIVE. CONTINUES TO WEAN. SPO2 STABLE. PT COMFORTABLE.
--- NOTE | 2019-09-15 14:06 | NUR ---
RT PT EXTUBATED PER DR TILLMAN. PT HAS STRONG COUGH. NO STRIDOR NOTED. PLACED PT ON 4L NC. RN AWARE. WILL CONTINUE TO MONITOR T/O SHIFT.
--- NOTE | 2019-09-15 16:00 | NUR ---
FIRE OFFICER PT EXTUBATED SUCCESSFULLY. PT AWAKE ATTEMPTING TO TALK. SPO2 ON 2L NC MID-90'S. FAMILY AT BEDSIDE. UPDATE GIVEN.
--- NOTE | 2019-09-15 18:00 | NUR ---
OIL SEAL ASSEMBLER PT RECENTLY EXTUBATED. GIVEN ICE CHIPS. UNABLE TO TOLERATE SIPS OF WATER. WILL WAIT UNTIL LATER TO TRY SWALLOW EVAL AGAIN. SWALLOW EVAL BY SPEECH THERAPY SCHEDULED FOR TOMORROW. PO MEDS NOT GIVEN.
--- NOTE | 2019-09-15 19:00 | NUR ---
RECEIVED PATIENT ASLEEP, AWAKENS EASILY BUT STILL DROWSY MOST OF THE TIME,NEWLY EXTUBATED TODAY BUT NOT IN ANY DISTRESS, BREATHING REGULA AND NON LABORED WITH O2 VIA NASAL CANNULA 2L/MIN. FOLLOWS COMMANDS ,SEEMS COHERENT ,CONVERSES BUT ONLY SPEAKS MAURITIAN. COMFORT CARE DONE,NEEDS ATTENDED.
[2019-09-16] VITALS (67 sets, daily range): BP systolic 136–180; BP diastolic 61–122
--- NOTE | 2019-09-16 | NUR ---
REMAINS STABLE,NOT IN ANY DISTRESS,TOLERATING NASAL CANNULA 2 L/MIN.COMFORT CARE DONE,NEEDS ATTENDED.
--- NOTE | 2019-09-16 04:00 | NUR ---
REMAINS STABLE,ASLEEP.NOT IN ANY RESPIRATORY DISTRESS
[2019-09-16 04:41] LABS: BASOPHILS % (AUTO) 0.7 % (0.0-2.0); EOSINOPHILS % (AUTO) 0.8 % (0.0-6.0); HEMATOCRIT 29 % (33-45); HEMOGLOBIN 9.1 g/dL (11.5-14.8); LYMPHOCYTES # (AUTO) 0.7 /CMM (0.8-4.8); LYMPHOCYTES % (AUTO) 9.5 % (20.0-44.0); MEAN CORPUSCULAR HGB CONC 31 g/dl (31.0-36.0); MEAN CORPUSCULAR VOLUME 81 fL (82-100); MONOCYTES # (AUTO) 0.5 /CMM (0.1-1.30); MONOCYTES % (AUTO) 7.5 % (2.0-12.0); NEUTROPHILS # (AUTO) 5.6 /CMM (1.8-8.9); NEUTROPHILS % (AUTO) 81.5 % (43.0-81.0); PLATELET COUNT (AUTO) 97 /CMM (150-450); RED BLOOD CELL COUNT(AUTO) 3.59 MIL/uL (4.0-5.2); WHITE BLOOD COUNT (AUTO) 6.9 K/uL (4.3-11.0)
[2019-09-16 05:21] LABS: CALCIUM, SERUM 8.6 mg/dL (8.5-10.1); CARBON DIOXIDE 32 mmol/L (21-32); CHLORIDE 103 mmol/L (98-107); GLUCOSE 91 mg/dL (74-106); PHOSPHORUS 4.8 mg/dL (2.5-4.9); POTASSIUM 4.4 mmol/L (3.5-5.1); SODIUM SERUM 140 mmol/L (136-145); UREA NITROGEN, BLOOD 36 mg/dL (7-18)
[2019-09-16 05:47] LABS: LYMPHOCYTES % (MANUAL) 7 % (16-48); MONOCYTES % (MANUAL) 6 % (0-11.0); NEUTROPHILS % (MANUAL) 86 (42-76)
[2019-09-16 05:48] LABS: EOSINOPHILS % (MANUAL) 1 % (0-4)
[2019-09-16] MEDS: DILTIAZEM HCL 30 MG TABLET NG SCH ×4 (06:00→23:53)
[2019-09-16] MEDS: BLOOD SUGAR DIAGNOSTIC 1 EACH STRIP IN SCH ×3 (06:25→17:22)
[2019-09-16] MEDS: IV NS 0.9% 250 ML IV PRN (06:47)
--- NOTE | 2019-09-16 08:16 | NUR ---
received pt from shift supervisor film processing, alert, follows commands, A fib controlled, on 2L 02 sat well, NPO, f/c low output HD patient, v/s stable, no pain, pt turned and repositioned.
[2019-09-16] MEDS: CALCIUM CARB 600MG /VIT D 1 EACH TABLET NG SCH (09:00)
--- NOTE | 2019-09-16 12:12 | NUR ---
pt did not pass swallow eval, repeat tomorrow, alert follows commands, A fib, v/s stable, no pain, able to cough up sputum.
[2019-09-16] MEDS: IV D5/ 0.9% NACL 1,000 ML IV PRN (12:39)
[2019-09-16] MEDS ORDERED: DEXTROSE 50%-WATER 50 ML DISP.SYRIN IV PRN (13:00)
[2019-09-16] MEDS: METOPROLOL TARTRATE INJ 5 MG/5 ML AMPUL IVP PRN (15:08)
--- NOTE | 2019-09-16 16:18 | NUR ---
pt is resting in the bed, alert, follows commands, A fib controlled, on 2L 02 sat well, HD today 2L out, v/s stable, no pain, pt cleaned, changed and repositioned q2hrs.
[2019-09-16] MEDS ORDERED: BLOOD SUGAR DIAGNOSTIC 1 EACH STRIP IN SCH (18:00)
[2019-09-17] VITALS (43 sets, daily range): BP systolic 140–192; BP diastolic 66–132
[2019-09-17] MEDS: BLOOD SUGAR DIAGNOSTIC 1 EACH STRIP IN SCH ×4 (00:27→18:00)
[2019-09-17] MEDS: METOPROLOL TARTRATE INJ 5 MG/5 ML AMPUL IVP PRN ×3 (00:30→14:36)
[2019-09-17] MEDS: IV D5/ 0.9% NACL 1,000 ML IV PRN (03:55)
[2019-09-17 05:14] LABS: CALCIUM, SERUM 8.3 mg/dL (8.5-10.1); CARBON DIOXIDE 31 mmol/L (21-32); CHLORIDE 107 mmol/L (98-107); GLUCOSE 130 mg/dL (74-106); POTASSIUM 4.5 mmol/L (3.5-5.1); SODIUM SERUM 145 mmol/L (136-145); UREA NITROGEN, BLOOD 39 mg/dL (7-18)
[2019-09-17 05:30] LABS: BASOPHILS # (AUTO) 0.1 /CMM (0.0-0.2); BASOPHILS % (AUTO) 0.8 % (0.0-2.0); EOSINOPHILS % (AUTO) 0.7 % (0.0-6.0); HEMATOCRIT 31 % (33-45); HEMOGLOBIN 9.5 g/dL (11.5-14.8); LYMPHOCYTES # (AUTO) 0.6 /CMM (0.8-4.8); LYMPHOCYTES % (AUTO) 9.9 % (20.0-44.0); MEAN CORPUSCULAR HGB CONC 31 g/dl (31.0-36.0); MEAN CORPUSCULAR VOLUME 81 fL (82-100); MONOCYTES # (AUTO) 0.5 /CMM (0.1-1.30); NEUTROPHILS # (AUTO) 5.2 /CMM (1.8-8.9); NEUTROPHILS % (AUTO) 80.6 % (43.0-81.0); PLATELET COUNT (AUTO) 101 /CMM (150-450); RED BLOOD CELL COUNT(AUTO) 3.82 MIL/uL (4.0-5.2); WHITE BLOOD COUNT (AUTO) 6.5 K/uL (4.3-11.0)
[2019-09-17] MEDS: DILTIAZEM HCL 30 MG TABLET NG SCH ×3 (05:42→18:00)
[2019-09-17] MEDS: INSULIN REGULAR, HUMAN 100 UNIT/ML 3 ML VIAL SQ PRN ×2 (06:27→14:38)
[2019-09-17 08:05] LABS: ABG OXYGEN SATURATION 95.9 % (92.0-98.5); ABG PCO2 36.4 mmHg (35.0-45.0); ABG PO2 87.6 mmHg (75.0-100.0); COHb 1.2 % (0.5-1.5); MetHb 0.4 % (0.0-1.5); O2Hb 94.4 % (94.0-97.0); SITE, ABG Right Radial; VENT MODE, BG NASAL CANNULA
--- NOTE | 2019-09-17 08:14 | NUR ---
received pt from shift manager, alert, follows commands, A fib controlled, on 2L 02 sat well, lungs partially congested, no edema, NPO swallow evaluation pending, f/c low output - HD patient, v/s stable, no pain, pt turned and repositioned.
[2019-09-17] MEDS: CALCIUM CARB 600MG /VIT D 1 EACH TABLET NG SCH (08:18)
--- NOTE | 2019-09-17 08:47 | NUR ---
pt SBP still high 170 -177, Dr Ybarra notified, order received and carried out.
[2019-09-17] MEDS ORDERED: CLONIDINE HCL 0.1MG/24H PTWK 1 EA PATCH TD SCH (09:00)
--- NOTE | 2019-09-17 11:30 | NUR ---
pt transferred to RUBA, ACLS followed, alert, follows commands, v/s stable, no pain.
--- NOTE | 2019-09-17 19:15 | NUR ---
RN OPENING NOTE RECEIVED PATIENT IN BED WITH HOB ELEVATED. HAVING HEMODIALYSIS PROCEDURE AT THIS TIME. HD NURSE AT BEDSIDE. A&O X2. BREATHING IS EVEN AND NON LABORED. IN NO APPARENT DISTRESS NOTED AT THIS TIME. WILL CONTINUE TO MONITOR.
[2019-09-17] MEDS: hydrALAZINE HCL IV 20 MG VIAL IV PRN (20:54)
[2019-09-18] VITALS: BP 160/86
[2019-09-18] MEDS: METOPROLOL TARTRATE INJ 5 MG/5 ML AMPUL IVP PRN ×2 (00:10→21:43)
[2019-09-18] MEDS: BLOOD SUGAR DIAGNOSTIC 1 EACH STRIP IN SCH ×5 (00:20→23:25)
[2019-09-18] MEDS: IV D5/ 0.9% NACL 1,000 ML IV PRN ×2 (01:21→20:18)
[2019-09-18 04:00] VITALS: BP 161/82
[2019-09-18] MEDS: DILTIAZEM HCL 30 MG TABLET NG SCH ×5 (05:13→23:26)
--- NOTE | 2019-09-18 07:30 | NUR ---
RN CLOSING NOTE PATIENT IS IN BED RESTING WITH HOB ELEVATED. A&O X 2. ABLE TO MAKE NEEDS KNOWN IN [place]. BREATHING IS EVEN AND NON LABORED. ON O2 3L VIA NC. ALL DUE MEDS GIVEN AND TOLERATED WELL. PATIENT IS KEPT NPO. PATIENT IS KEPT CLEAN, DRY, AND COMFORTABLE. CALL LIGHT IS WITHIN EASY REACH. ALL NEEDS ATTENDED AND MET. ENDORSED TO DEVYN SUE FOR CONTINUATION OF CARE.
--- NOTE | 2019-09-18 07:45 | NUR ---
RN OPENING NOTES RECEIVED PT IN BED, ASLEEP. IN NO ACUTE DISTRESS NOTED. ON NASAL CANNULA @3L, TOLERATING WELL. NO SOB NOTED. WITH IV ACCESS ON R UA MIDLINE NO SIGNS OF INFILTRATION RUNNING D5NS @60 ML/ HR WITH REMAINING 750ML ON THE BAG. WITH MENDOZA CATHETER DRAINING VIA GRAVITY WITH YELLOW COLOR URINE, 50 ML OUTPUT ON THE BAG. BED IN LOWEST POSITION AND LOCKED. CALL LIGHT WITHIN REACH FOR EASY ACCESS.
[2019-09-18 08:00] VITALS: BP 165/98
[2019-09-18] MEDS: hydrALAZINE HCL IV 20 MG VIAL IV PRN ×3 (08:07→23:21)
--- NOTE | 2019-09-18 08:10 | NUR ---
RN NOTES NOTED ELEVATED BP 165/98. ADMINISTERED HYDRALAZINE 0.5 ML @8:07
[2019-09-18] MEDS: CALCIUM CARB 600MG /VIT D 1 EACH TABLET NG SCH (09:00)
--- NOTE | 2019-09-18 09:30 | NUR ---
RN NOTES RECHECKED BP 1H AFTER GIVEN HYDRALAZINE. BP 154/85.
[2019-09-18 12:00] VITALS: BP 161/85
[2019-09-18 16:00] VITALS: BP 155/81
[2019-09-18] MEDS: INSULIN REGULAR, HUMAN 100 UNIT/ML 3 ML VIAL SQ PRN (18:41)
--- NOTE | 2019-09-18 18:42 | NUR ---
RN NOTES ADMINISTERED HYDRALAZINE 0.5ML , BP 155/81
--- NOTE | 2019-09-18 19:27 | NUR ---
RN CLOSING NOTES PATIENT IN BED, RESTING COMFORTABLY. NO ACUTE DISTRESS NOTED. ON NASAL CANNULA 3L, TOLERATING WELL. MENDOZA CATH DRAINING VIA GRAVITY WITH ANKUR COLOR URINE. IV ACCESS ON R UA NO SIGNS OF INFILTRATION. ALL NEEDS MET . ENDORSED TO PM RN FOR LEANDER.
--- NOTE | 2019-09-18 19:28 | NUR ---
MS RN NOTES PATIENT IN BED, AWAKE, ALERT AND ORIENTED X 2. [place] SPEAKING. BREATHING EVEN AND UNLABORED ON ROOM AIR. SHOWS NO SIGNS OF ACUTE RESPIRATORY DISTRESS, NO ACUTE PAIN. IV ON GANESH MIDLINE RUNNING D5NS AT 60ML/HR. SHOWS NO SIGNS OF INFILTRATION NO REDNESS. SAFETY PRECAUTIONS IN PLACE. BED IN LOWEST POSITION, LOCKED, AND CALL LIGHT KEPT WITHIN REACH. WILL CONTINUE TO MONITOR.
--- NOTE | 2019-09-18 21:43 | NUR ---
MS RN NOTES PATIENT BLOOD PRESSURE 180/90. IV METOPROLOL 5MG GIVEN. WILL CONTINUE TO MONITOR.
--- NOTE | 2019-09-18 22:43 | NUR ---
MS RN NOTES RECHECK PATIENT BLOOD PRESSURE ONE HOUR AFTER METOPROLOL 171/90. WILL CONTINUE TO MONITOR.
--- NOTE | 2019-09-18 23:21 | NUR ---
MS RN NOTES PATIENT BLOOD PRESSURE 171/90. GIVEN PRN HYDRALAZINE. WILL CONTINUE TO MONITOR.
[2019-09-19] VITALS (7 sets, daily range): BP systolic 155–184; BP diastolic 76–96
--- NOTE | 2019-09-19 00:21 | NUR ---
MS RN NOTES RECHECK PATIENT BLOOD PRESSURE ONE HOUR AFTER PRN HYDRALAZINE. BP 159/99 HR 96. WILL CONTINUE TO MONITOR.
[2019-09-19] MEDS: hydrALAZINE HCL IV 20 MG VIAL IV PRN ×2 (04:03→21:50)
--- NOTE | 2019-09-19 04:05 | NUR ---
MS RN NOTES PATIENT COMPLAINING OF PAIN. BLOOD PRESSURE 183/89 HR 81. GIVEN PRN HYDRALAZINE. WILL CONTINUE TO MONITOR.
--- NOTE | 2019-09-19 05:05 | NUR ---
MS RN NOTES REASSESSED PATIENT BP ONE HOUR AFTER HYDRALAZINE. BP 156/76 AND HR 92. WILL CONTINUE TO MONITOR.
[2019-09-19] MEDS: DILTIAZEM HCL 30 MG TABLET NG SCH ×3 (05:37→17:02)
[2019-09-19] MEDS: BLOOD SUGAR DIAGNOSTIC 1 EACH STRIP IN SCH ×3 (05:37→17:09)
[2019-09-19 06:21] LABS: BASOPHILS % (AUTO) 0.9 % (0.0-2.0); EOSINOPHILS % (AUTO) 0.5 % (0.0-6.0); HEMATOCRIT 33 % (33-45); LYMPHOCYTES # (AUTO) 0.5 /CMM (0.8-4.8); LYMPHOCYTES % (AUTO) 11.2 % (20.0-44.0); MEAN CORPUSCULAR HGB CONC 31 g/dl (31.0-36.0); MEAN CORPUSCULAR VOLUME 84 fL (82-100); MONOCYTES # (AUTO) 0.4 /CMM (0.1-1.30); MONOCYTES % (AUTO) 9.5 % (2.0-12.0); NEUTROPHILS # (AUTO) 3.5 /CMM (1.8-8.9); NEUTROPHILS % (AUTO) 77.9 % (43.0-81.0); PLATELET COUNT (AUTO) 74 /CMM (150-450); WHITE BLOOD COUNT (AUTO) 4.5 K/uL (4.3-11.0)
--- NOTE | 2019-09-19 06:35 | NUR ---
MS RN NOTES PATIENT IN BED, WITH INTERMITTENT SLEEP, ALERT AND ORIENTED X 2. YAKUT SPEAKING. BREATHING EVEN AND UNLABORED ON NC 2L. SHOWS NO SIGNS OF ACUTE RESPIRATORY DISTRESS, NO ACUTE PAIN. IV ON GANESH MIDLINE RUNNING D5NS AT 60ML/HR. SHOWS NO SIGNS OF INFILTRATION NO REDNESS. ALL DUE MEDICATIONS GIVEN. SAFETY PRECAUTIONS IN PLACE. BED IN LOWEST POSITION, LOCKED, AND CALL LIGHT KEPT WITHIN REACH. WILL ENDORSE TO ONCOMING NURSE.
[2019-09-19 06:48] LABS: CALCIUM, SERUM 8.3 mg/dL (8.5-10.1); CARBON DIOXIDE 28 mmol/L (21-32); CHLORIDE 111 mmol/L (98-107); CREATININE 1.5 mg/dL (0.6-1.3); GLUCOSE 128 mg/dL (74-106); MAGNESIUM 1.7 mg/dL (1.8-2.4); PHOSPHORUS 3.6 mg/dL (2.5-4.9); POTASSIUM 3.6 mmol/L (3.5-5.1); SODIUM SERUM 147 mmol/L (136-145); UREA NITROGEN, BLOOD 26 mg/dL (7-18)
--- NOTE | 2019-09-19 07:31 | NUR ---
RN OPENING NOTE PT WAS RECEIVED IN BED AT LOWEST AND LOCKED POSITION WITH SIDE RAILS UP X2, A/O X2 SPANSIH SPEAKING, BREATHING EVEN AND UNLABORED ON 3L VIA NC, NO S/S OF ANY DISTRESS OR PAIN NOTED AT THIS TIME, MENDOZA IN PLACE AND DRAINING, NOTED TO HAVE RIGHT FEMORAL HD CATH, SAFETY PRECAUTIONS IN PLACE, CALL LIGHT IN REACH, WILL MONITOR ACCORDINGLY
[2019-09-19] MEDS: CALCIUM CARB 600MG /VIT D 1 EACH TABLET NG SCH (08:37)
[2019-09-19] MEDS: INSULIN REGULAR, HUMAN 100 UNIT/ML 3 ML VIAL SQ PRN (11:13)
[2019-09-19] MEDS: Magnesium 1GM/D5W 100ML PREMIX 100 ML IV SCH ×2 (12:30→12:37)
[2019-09-19] MEDS: METOPROLOL TARTRATE INJ 5 MG/5 ML AMPUL IVP PRN (12:38)
--- NOTE | 2019-09-19 18:18 | NUR ---
RN CLOSING NOTE PT IN BED AT LOWEST AND LOCKED POSITION WITH SIDE RAILS UP X2, A/O X2 MOZAMB[place] SPEAKING, BREATHING EVEN AND UNLABORED ON 3L VIA NC, NO S/S OF ANY DISTRESS OR PAIN , MENDOZA IN PLACE AND DRAINING, SAFETY PRECAUTIONS IN PLACE, CALL LIGHT IN REACH, ALL NEEDS ATTENDED TO, WILL ENDORSE TO NIGHT RN FOR LEANDER.
--- NOTE | 2019-09-19 19:45 | NUR ---
MS1 RN NOTES RECEIVED ON BED A/O X1-2,BREATHING NON LABORED,O2 2L/NC IN USED,WITH O2 SAT 99%.IVF D5NS AT AT 60ML/HR RATE,SITE PATENT.S/P HEMODIALYSIS TODAY TAKEN OUT 2LITERS,WITH RIGHT FEMORAL CATHETER FOR HD TREATMENT.CALL LIGHT IN REACH,NEEDS ANTICIPATED.
--- NOTE | 2019-09-19 21:30 | NUR ---
TELE1 RN NOTES PATIENT BLOOD PRESSURE 174/76,HEART RATE OF 85.WITH IV PUSH OF HYDRALAZINE 10MG AND LOPRESSOR 10MG PRN FOR SBP >160.SCOOTER FORBES HOSPITALIST DNP FOR [facility] MADE AWARE THAT PATIENT IS ON MED SURG STATUS,WITH NEW ORDER OKAY TO PUT PATIENT ON TELE STATUS.
--- NOTE | 2019-09-19 21:50 | NUR ---
TELE1 RN NOTES MEDICATED WITH HYDRALAZINE 10MG SLOW IV PUSH FOR BLOOD PRESSURE 174/76,HEART RATE 85.WILL RE ASSESS IN AN HOUR.
--- NOTE | 2019-09-19 23:38 | NUR ---
TELE1 RN NOTES BLOOD PRESSURE 154/94,HR-103, AFTER HYDRALAZINE 10MG IVP GIVEN
[2019-09-20] VITALS (9 sets, daily range): BP systolic 140–181; BP diastolic 66–94
--- NOTE | 2019-09-20 | NUR ---
TELE1 RN NOTES ACCU-CHECK 96,NO INSULIN COVERAGE.
[2019-09-20] MEDS: BLOOD SUGAR DIAGNOSTIC 1 EACH STRIP IN SCH ×4 (00:02→18:11)
--- NOTE | 2019-09-20 04:00 | NUR ---
KILN HEAD HOUSE OPERATOR NOTES BLOOD PRESSURE THIS TIME 169/76,HR-102 ON TELE MONITOR
[2019-09-20] MEDS: hydrALAZINE HCL IV 20 MG VIAL IV PRN ×2 (04:03→08:50)
--- NOTE | 2019-09-20 04:03 | NUR ---
MEDICAL RECORD TECHNICIAN NOTES MEDICATED WITH HYDRALAZINE 10MG SLOW IVP FOR SBP>150,WITH ORDERS PRN
[2019-09-20] MEDS: IV D5/ 0.9% NACL 1,000 ML IV PRN (04:08)
--- NOTE | 2019-09-20 05:45 | NUR ---
BATCHER OPERATOR NOTES ACCU-CHECK 79,NO S/S OF HYPOGLYCEMIA.NPO STATUS.IVF D5NS AT 60ML HR RATE RE STARTED
[2019-09-20] MEDS: DILTIAZEM HCL 30 MG TABLET NG SCH ×4 (06:00→18:13)
--- NOTE | 2019-09-20 06:39 | NUR ---
ASSOCIATE PROPERTY MANAGER NOTEAS NO SIGNIFICANT CHANGE IN STATUS,KEPT NPO TILL SEEN FOR SWALLOW EVAL.IN NO ACUTE DISTRESS.
[2019-09-20 06:54] LABS: BASOPHILS % (AUTO) 0.9 % (0.0-2.0); EOSINOPHILS % (AUTO) 0.6 % (0.0-6.0); HEMATOCRIT 33 % (33-45); HEMOGLOBIN 10.2 g/dL (11.5-14.8); LYMPHOCYTES # (AUTO) 0.7 /CMM (0.8-4.8); LYMPHOCYTES % (AUTO) 14.6 % (20.0-44.0); MEAN CORPUSCULAR HGB CONC 31 g/dl (31.0-36.0); MEAN CORPUSCULAR VOLUME 84 fL (82-100); MONOCYTES # (AUTO) 0.3 /CMM (0.1-1.30); MONOCYTES % (AUTO) 7.5 % (2.0-12.0); NEUTROPHILS # (AUTO) 3.6 /CMM (1.8-8.9); NEUTROPHILS % (AUTO) 76.4 % (43.0-81.0); PLATELET COUNT (AUTO) 80 /CMM (150-450); RED BLOOD CELL COUNT(AUTO) 3.89 MIL/uL (4.0-5.2); WHITE BLOOD COUNT (AUTO) 4.7 K/uL (4.3-11.0)
[2019-09-20 07:09] LABS: CALCIUM, SERUM 8.2 mg/dL (8.5-10.1); CARBON DIOXIDE 26 mmol/L (21-32); CHLORIDE 112 mmol/L (98-107); CREATININE 1.5 mg/dL (0.6-1.3); GLUCOSE 92 mg/dL (74-106); MAGNESIUM 2.1 mg/dL (1.8-2.4); PHOSPHORUS 3.5 mg/dL (2.5-4.9); POTASSIUM 3.7 mmol/L (3.5-5.1); SODIUM SERUM 148 mmol/L (136-145); UREA NITROGEN, BLOOD 24 mg/dL (7-18)
--- NOTE | 2019-09-20 08:54 | NUR ---
TELE/RN NOTE THE PATIENT IS NOTED TO HAVE ELEVATED BLOOR PRESSURE OF 181/93 AND PULSE 113. ADMINISTERED PRN APRESOLINE 10 MG PER ORDER. WILL CONTINUE TO MONITOR THE PATIENT`S BLOOR PRESSURE.
[2019-09-20] MEDS: CALCIUM CARB 600MG /VIT D 1 EACH TABLET NG SCH (09:00)
--- NOTE | 2019-09-20 09:45 | NUR ---
TELE/RN NOTE BLOOD PRESSURE IS RECHECKED AND NOTED TO BE 152/79 AND PULSE 90. THE PATIENT IS IN STABLE CONDITION AT THIS TIME.
--- NOTE | 2019-09-20 15:53 | NUR ---
RN NOTE THE PATIENT IS SCHEDULED FOR US GUIDED THORACENTESIS TOMORROW. RECEIVED AN ORDER FROM CLARENCE FRASER FOR PT AND INR CHECK TOMORROW AM. THE ORDER IS VERIFIED. NOTED AND CARRIED OUT.
--- NOTE | 2019-09-20 15:57 | NUR ---
RN NOTE RECEIVED ORDER FROM CLARENCE FRASER FOR VIDEO SWALLOW STUDY. THE ORDER IS NOTED AND CARRIED OUT.
[2019-09-20] MEDS: INSULIN REGULAR, HUMAN 100 UNIT/ML 3 ML VIAL SQ PRN (18:15)
--- NOTE | 2019-09-20 18:55 | NUR ---
RN NOTE THE PATIENT IS ALERT AND ORIENTED X2. RECEIVING OXYGEN AT 2L/MIN VIA NASAL CANNULA AND DENIES SATURATION IS AT 95%. DENIES SOB. RESPIRATION REGULAR AND UNLABORED. DENIES PAIN. THE PATIENT IN NO APPARENT DISTRESS. GANESH MIDLINE PATENT AND D5NS INFUSING AT 60ML/HR AND NO S/S INFILTRATION NOTED. BED LOW AND LOCKED. SIDE RAILS UP X3. CALL LIGHT WITHIN REACH. WILL ENDORSE TO REVERSE LOGISTICS ANALYST.
--- NOTE | 2019-09-20 19:30 | NUR ---
MS RN OPENING NOTE RECEIVED PATIENT IN BED SLEEPING, PATIENT IS A/O X2. RECEIVING OXYGEN AT 2L/MIN VIA NASAL CANNULA, NO SOB OR ACUTE DISTRESS NOTED AT THIS TIME. SATURATION IS AT 95%. RESPIRATION REGULAR AND UNLABORED. PATIENT HAS A GANESH MIDLINE PATENT AND D5NS INFUSING AT 60ML/HR AND NO S/S INFILTRATION NOTED. BED LOW AND LOCKED. SIDE RAILS UP X3. CALL LIGHT WITHIN REACH. WILL CONTINUE TO MONITOR.
[2019-09-21] VITALS: BP 158/80
[2019-09-21] MEDS: BLOOD SUGAR DIAGNOSTIC 1 EACH STRIP IN SCH ×5 (01:25→23:24)
[2019-09-21] MEDS: DILTIAZEM HCL 30 MG TABLET NG SCH ×4 (01:35→17:48)
[2019-09-21 04:00] VITALS: BP_SYST 165; BP_DIAS 54; BP_DIAS 94
[2019-09-21] MEDS: IV D5/ 0.9% NACL 1,000 ML IV PRN ×2 (04:36→23:32)
[2019-09-21] MEDS: hydrALAZINE HCL IV 20 MG VIAL IV PRN (05:10)
--- NOTE | 2019-09-21 07:05 | NUR ---
TELE/RN OPENING NOTES: RECEIVED PT RESTING IN BED IN LOWEST AND LOCKED POSITION. A&0X2, TURKMEN SPEAKING.ON 3L/MIN NC, BREATHING EVEN AND UNLABORED. NO SOB OR RESPIRATORY DISTRESS NOTED. ON TELE MONITOR IN A-FIB W/ PVC'S. MENDOZA CATHETER IN PLACE AND DRAINING. HAS GANESH MIDLINE W/ D5W INFUSING AT 60ML/HR. SAFETY PRECAUTIONS IN PLACE, CALL LIGHT W/IN REACH. WILL CONTINUE TO MONITOR.
[2019-09-21 07:11] LABS: BASOPHILS # (AUTO) 0.1 /CMM (0.0-0.2); EOSINOPHILS % (AUTO) 0.8 % (0.0-6.0); HEMATOCRIT 31 % (33-45); HEMOGLOBIN 9.6 g/dL (11.5-14.8); LYMPHOCYTES # (AUTO) 0.7 /CMM (0.8-4.8); LYMPHOCYTES % (AUTO) 11.9 % (20.0-44.0); MEAN CORPUSCULAR HGB CONC 31 g/dl (31.0-36.0); MEAN CORPUSCULAR VOLUME 84 fL (82-100); MONOCYTES # (AUTO) 0.4 /CMM (0.1-1.30); MONOCYTES % (AUTO) 7.1 % (2.0-12.0); NEUTROPHILS # (AUTO) 4.6 /CMM (1.8-8.9); NEUTROPHILS % (AUTO) 79.2 % (43.0-81.0); PLATELET COUNT (AUTO) 88 /CMM (150-450); RED BLOOD CELL COUNT(AUTO) 3.63 MIL/uL (4.0-5.2); WHITE BLOOD COUNT (AUTO) 5.9 K/uL (4.3-11.0)
[2019-09-21 07:28] LABS: CALCIUM, SERUM 7.1 mg/dL (8.5-10.1); CARBON DIOXIDE 25 mmol/L (21-32); CHLORIDE 110 mmol/L (98-107); CREATININE 1.4 mg/dL (0.6-1.3); GLUCOSE 342 mg/dL (74-106); MAGNESIUM 1.7 mg/dL (1.8-2.4); PHOSPHORUS 2.6 mg/dL (2.5-4.9); POTASSIUM 3.8 mmol/L (3.5-5.1); SODIUM SERUM 144 mmol/L (136-145); UREA NITROGEN, BLOOD 20 mg/dL (7-18)
[2019-09-21 08:00] VITALS: BP 148/78
[2019-09-21] MEDS: CALCIUM CARB 600MG /VIT D 1 EACH TABLET NG SCH (08:39)
--- NOTE | 2019-09-21 09:09 | NUR ---
MS RN CLOSING NOTE PATIENT IN BED SLEEPING, PATIENT IS A/O X2. RECEIVING OXYGEN AT 3L/MIN VIA NASAL CANNULA, NO SOB OR ACUTE DISTRESS NOTED AT THIS TIME. SATURATION IS AT 97%. RESPIRATION REGULAR AND UNLABORED. PATIENT HAS A GANESH MIDLINE PATENT AND D5NS INFUSING AT 60ML/HR AND NO S/S INFILTRATION NOTED. BED LOW AND LOCKED. SIDE RAILS UP X3. CALL LIGHT WITHIN REACH. ENDORSED THE PATIENT TO AM RN FOR LEANDER.
[2019-09-21] MEDS ORDERED: Magnesium 1GM/D5W 100ML PREMIX 100 ML IV SCH ×2 (11:41→12:00)
[2019-09-21 12:00] VITALS: BP 161/86
[2019-09-21] MEDS ORDERED: ANESTHESIA TRAY IN PYXIS 1 EA TRAY MC ONE (14:52)
[2019-09-21] MEDS ORDERED: HEPARIN SODIUM, PORCINE 1,000 UNIT/ML VIAL ONE (14:52)
[2019-09-21] MEDS ORDERED: LIDOCAINE HCL/PF 1% 30 ML SDV ONE (14:52)
[2019-09-21] MEDS ORDERED: FENTANYL PF 100MCG/2ML AMPUL ONE (15:15)
[2019-09-21] MEDS ORDERED: ALBUTEROL FS 2.5 MG/3 ML VIAL.NEB ONE (16:43)
[2019-09-21] MEDS ORDERED: hydrALAZINE HCL IV 20 MG VIAL ONE (17:11)
--- NOTE | 2019-09-21 17:25 | NUR ---
TELE1/RN S/P PERMACATH PLACEMENT PT RETURNED TO TELE1 UNIT S/P PERMACATH PLACEMENT ON RIGHT UPPER CHEST. MONITORING CONTINUED.
[2019-09-21 17:30] VITALS: BP 176/71
--- NOTE | 2019-09-21 18:00 | NUR ---
TELE1/RN DIFFICULTY SWALLOWING ASSESSED PT FOR SWALLOWING NOTED DIFFICULTY. CIRCULAR SAW OPERATOR MADE AWARE AND ORDERED TO KEEP PT NPO UNTIL THE VIDEO SWALLOW EVALUATION TOMORROW.
[2019-09-21] MEDS: INSULIN REGULAR, HUMAN 100 UNIT/ML 3 ML VIAL SQ PRN (18:13)
--- NOTE | 2019-09-21 19:00 | NUR ---
lsat instructor opening notes Received Pt from morning nurse. Pt is alert and orientedX2. Respiration is normal in 3 L NC. No SOB. No S/S of distress noted. R Upper chest permacath is clean, intact and patent. R Femoral HD cath is clean, intact, patent. GANESH midline is clean, intact and patent and infusing well D5 NS at 60 ml/hr. Pt status is NPO due to pending swallow eval. Tele monitor showed afib HR at 89. Carcamo cath is clean, intact, patent and draining yellow urine. Safety precautions is maintained. Bed at low position, brakes locked, side rails upX3 and call light is within reach. Will continue to monitor.
--- NOTE | 2019-09-21 19:59 | NUR ---
TELE/RN CLOSING NOTES: PT IN BED AWAKE A&0X2, IN NO RESPIRATORY DISTRESS. HAD DIALYSIS TODAY 2L OUT. PT NPO UNTIL SWALLOW EVAL TOMORROW. HAD RIGHT UPPER CHEST PERMACATH PLACEMENT TODAY. HAD US GUIDED THORACENTESIS TODAY, FLUID REMOVED TAKEN TO LAB. HAS RIGHT UA MIDLINE RUNNING WITH D5W AT 60ML/HR. IF SWALLOW EVAL IS PASSED, TO CHANGE ACCUCHECK TO ACHS AND CHANGE SLIDING SCALE TO MODERATE. SAFETY MEASURES IMPLEMENTED, CALL LIGHT W/IN REACH. ENDORSED TO NIGHT RN FOR LEANDER.
[2019-09-21 20:00] VITALS: BP 135/57
[2019-09-22] VITALS (8 sets, daily range): BP systolic 142–167; BP diastolic 61–82
[2019-09-22] MEDS: DILTIAZEM HCL 30 MG TABLET NG SCH ×4 (00:08→18:25)
[2019-09-22] MEDS: hydrALAZINE HCL IV 20 MG VIAL IV PRN ×3 (04:51→21:51)
--- NOTE | 2019-09-22 04:51 | NUR ---
textile machinery instructor notes Pt's Bp 158/72, pulse 90. Administered hydralazine hcl IV 10 mg/0.5 ml as ordered for hypertension. Will continue to monitor.
[2019-09-22] MEDS: BLOOD SUGAR DIAGNOSTIC 1 EACH STRIP IN SCH ×3 (05:47→18:02)
[2019-09-22] MEDS: INSULIN REGULAR, HUMAN 100 UNIT/ML 3 ML VIAL SQ PRN ×2 (05:48→18:06)
--- NOTE | 2019-09-22 05:48 | NUR ---
substance abuse technician notes Pt's blood sugar is 140. Held regular insulin because of Pt status is NPO due to pending swallow eval.
--- NOTE | 2019-09-22 06:35 | NUR ---
warehouseman closing notes Pt is resting in bed comfortably. Respiration is normal in 3 L NC. No SOB. No S/S of distress. Tele monitor showed afib HR 90. R upper permacath is clean, intact and patent. GANESH midline is clean, intact, patent and infusing well. RFA HD cath is clean, intact and patent. Kept Pt clean, dry, warm and comfortable. Carcamo cath is clean, intact and draining yellow urine. Pt status is NPO due to pending XR video swallow eval with speech. Turned and repositioned Q 2 Hr. Safety precautions is maintained. Bed at low position, brakes locked, side rails upX3 and call light is within reach. Will endorse to morning nurse for LEANDER.
[2019-09-22 07:04] LABS: BASOPHILS % (AUTO) 0.9 % (0.0-2.0); EOSINOPHILS % (AUTO) 0.8 % (0.0-6.0); HEMATOCRIT 31 % (33-45); HEMOGLOBIN 9.9 g/dL (11.5-14.8); LYMPHOCYTES # (AUTO) 0.6 /CMM (0.8-4.8); LYMPHOCYTES % (AUTO) 10.5 % (20.0-44.0); MEAN CORPUSCULAR HGB CONC 32 g/dl (31.0-36.0); MEAN CORPUSCULAR VOLUME 85 fL (82-100); MONOCYTES # (AUTO) 0.3 /CMM (0.1-1.30); MONOCYTES % (AUTO) 5.5 % (2.0-12.0); NEUTROPHILS # (AUTO) 4.6 /CMM (1.8-8.9); NEUTROPHILS % (AUTO) 82.3 % (43.0-81.0); PLATELET COUNT (AUTO) 91 /CMM (150-450); RED BLOOD CELL COUNT(AUTO) 3.69 MIL/uL (4.0-5.2); WHITE BLOOD COUNT (AUTO) 5.7 K/uL (4.3-11.0)
[2019-09-22 07:17] LABS: CALCIUM, SERUM 7.9 mg/dL (8.5-10.1); CARBON DIOXIDE 26 mmol/L (21-32); CHLORIDE 111 mmol/L (98-107); CREATININE 1.5 mg/dL (0.6-1.3); GLUCOSE 141 mg/dL (74-106); MAGNESIUM 1.6 mg/dL (1.8-2.4); PHOSPHORUS 3.1 mg/dL (2.5-4.9); POTASSIUM 3.8 mmol/L (3.5-5.1); SODIUM SERUM 145 mmol/L (136-145); UREA NITROGEN, BLOOD 19 mg/dL (7-18)
--- NOTE | 2019-09-22 07:52 | NUR ---
RN OPENING NOTES RECEIVED PT IN BED, ASLEEP. IN NO ACUTE DISTRESS NOTED. ON NASAL CANNULA @3L, TOLERATING WELL. NO SOB NOTED. WITH IV ACCESS ON R UA MIDLINE NO SIGNS OF INFILTRATION RUNNING D5NS @60 ML/ HR WITH REMAINING 600ML ON THE BAG. PERMACATH ON R UPPER CHEST, DRESSING INTACT. WITH MENDOZA CATHETER DRAINING VIA GRAVITY WITH YELLOW COLOR URINE, 25ML OUTPUT ON THE BAG. BED IN LOWEST POSITION AND LOCKED. CALL LIGHT WITHIN REACH FOR EASY ACCESS.
[2019-09-22] MEDS: CALCIUM CARB 600MG /VIT D 1 EACH TABLET NG SCH (09:00)
[2019-09-22 11:15] LABS: LYMPHOCYTES % (MANUAL) 10 % (16-48); MONOCYTES % (MANUAL) 2 % (0-11.0); NEUTROPHILS % (MANUAL) 86 (42-76); REACTIVE LYMPHOCYTES 2 % (0-0)
[2019-09-22] MEDS ORDERED: Magnesium 1GM/D5W 100ML PREMIX 100 ML IV SCH ×2 (11:30)
[2019-09-22] MEDS ORDERED: INSU100V28 SQ (15:11)
[2019-09-22] MEDS ORDERED: Blood Sugar Diagnostic IN (15:11)
--- NOTE | 2019-09-22 15:42 | NUR ---
FAMILY SPOKE WITH PARASITOLOGIST REGARDING PLACEMENT ISSUE.PER DAUGHTER WILL HAVE DIFFICULTY TAKE CARE OF PATIENT.
--- NOTE | 2019-09-22 15:53 | NUR ---
PATIENT O2 SAT ROOM AIR86%,NOTIFIED ,NEED HOME O2.
[2019-09-22] MEDS: IV D5/ 0.9% NACL 1,000 ML IV PRN (17:06)
--- NOTE | 2019-09-22 19:28 | NUR ---
RN CLOSING NOTES PATIENT IN BED, RESTING COMFORTABLY. NO ACUTE DISTRESS NOTED. ON NASAL CANNULA 3L, TOLERATING WELL. MENDOZA CATH DRAINING VIA GRAVITY WITH ANKUR COLOR URINE. IV ACCESS ON R UA NO SIGNS OF INFILTRATION. PERM-A- CATH ON R UPPER CHEST, DRESSING INTACT. R FEMORAL HD CATH, INTACT, NO SIGNS OF BLEEDING. ALL NEEDS MET . ENDORSED TO PM RN FOR LEANDER.
--- NOTE | 2019-09-22 21:49 | NUR ---
RN NOTES PER DR. OLEG. BRYANT TO ADMINISTER HYDRALAZINE WITHOUT TELE MONITOR.
--- NOTE | 2019-09-22 21:51 | NUR ---
RN NOTES ADMINISTERED HYDRALAZINE IVP. WILL CONTINUE TO MONITOR.
[2019-09-23] MEDS: BLOOD SUGAR DIAGNOSTIC 1 EACH STRIP IN SCH ×4 (00:14→18:27)
--- NOTE | 2019-09-23 00:14 | NUR ---
RN NOTES INSULIN NOT ADMINISTERED. BLOOD SUGAR 129. WILL CONTINUE TO MONITOR.
[2019-09-23] MEDS: INSULIN REGULAR, HUMAN 100 UNIT/ML 3 ML VIAL SQ PRN ×2 (00:15→12:23)
[2019-09-23] MEDS: DILTIAZEM HCL 30 MG TABLET NG SCH ×4 (00:20→18:33)
[2019-09-23 04:00] VITALS: BP 148/79
--- NOTE | 2019-09-23 05:29 | NUR ---
RN NOTES BLOOD SUGAR 117, NO INSULIN ADMINISTERED PER SLIDING SCALE.
--- NOTE | 2019-09-23 06:55 | NUR ---
RN CLOSING NOTES PATIENT IS CURRENTLY ASLEEP, EASILY AWAKENED. CURRENTLY ON 3LPM OXYGEN VIA NASAL CANNULA, TOLERATING WELL. NO SIGNS OF RESPIRATORY DISTRESS, NO SHORTNESS OF BREATH NOTED, RESPIRATIONS EVEN AND UNLABORED. NO SIGNS OF FACIAL GRIMACING INDICATING PAIN OR DISCOMFORT AT THIS TIME. IV SITE R UA. INTACT AND PATENT, NO SIGNS OF INFECTION/INFILTRATION. PERMACATH ON R UPPER CHEST, DRESSING INTACT. R FEMORAL HD CATH, INTACT, NO SIGNS OF BLEEDING. PATIENT KEPT CLEAN, DRY AND COMFORTABLE. ALL NEEDS MET ON SHIFT. ALL DUE MEDS GIVEN ORDERED WITH NO ADVERSE EFFECTS. SAFETY PRECAUTIONS IMPLEMENTED; CALL LIGHT WITHIN REACH, BED LOW, BED LOCKED, BILATERAL UPPER SIDE RAILS UP. WILL ENDORSE TO DAY SHIFT NURSE FOR CONTINUITY OF CARE.
[2019-09-23 08:00] VITALS: BP 149/68
[2019-09-23 10:00] VITALS: BP 149/68
[2019-09-23] MEDS ORDERED: Magnesium 1GM/D5W 100ML PREMIX 100 ML IV SCH (10:13)
[2019-09-23] MEDS: CALCIUM CARB 600MG /VIT D 1 EACH TABLET NG SCH (10:24)
[2019-09-23 18:33] VITALS: BP 163/93
--- NOTE | 2019-09-23 20:00 | NUR ---
MS RN NOTES REPORT GIVEN TO CORY AT [facility]. PATIENT IS DISCHARGED. PATIENT IS A/OX 2-3 AWAKE, COOPERATIVE.
--- NOTE | 2019-09-23 20:40 | NUR ---
MS CORPORATE TRAFFIC MANAGER NOTES Discharge is patient to [facility]. Report given by the AM RN. Discharge instructions and papers given by the AM RN. Patient is going to SNF without any IV meds ordered. Removed GANESH midline, complete and intact, no bleeding noted. Applied pressure and secured with dressing. FC remained in patient. Picked up by [facility] ([phone]) via gurney via BLS transport. All belongings accounted for. Leaved the facility at this time.
== END 2019-09-23 20:40 | DRG 720 ==
LOC: ER 03:09 → TELE 06:58 → ICU 09-06 09:11 → TELE1 09-17 11:37 → MEDSG1 09-18 12:02 → TELE1 09-19 22:22 → MEDSG1 09-22 15:48
PROVIDERS: ADMIT Nurse Practitioner Acute Care; ATTEND Nurse Practitioner Acute Care
PROC: 5A1955Z Respiratory Ventilation, Greater than 96 Consecutive Hours (ICD-10-PCS; principal; 2019-09-06)
PROC: 0BH17EZ Insertion of Endotracheal Airway into Trachea, Via Natural or Artificial Opening (ICD-10-PCS; principal; 2019-09-06)
PROC: 05H533Z Insertion of Infusion Device into Right Subclavian Vein, Percutaneous Approach (ICD-10-PCS; 2019-09-07)
PROC: 5A1D70Z Performance of Urinary Filtration, Intermittent, Less than 6 Hours Per Day (ICD-10-PCS; 2019-09-10)
PROC: 06HY33Z Insertion of Infusion Device into Lower Vein, Percutaneous Approach (ICD-10-PCS; 2019-09-10)
PROC: B518YZA Fluoroscopy of Superior Vena Cava using Other Contrast, Guidance (ICD-10-PCS; 2019-09-21)
PROC: 0JH63XZ Insertion of Tunneled Vascular Access Device into Chest Subcutaneous Tissue and Fascia, Percutaneous Approach (ICD-10-PCS; 2019-09-21)
PROC: 02HV33Z Insertion of Infusion Device into Superior Vena Cava, Percutaneous Approach (ICD-10-PCS; 2019-09-21)
PROC: 0W9B3ZZ Drainage of Left Pleural Cavity, Percutaneous Approach (ICD-10-PCS; 2019-09-21)
DX: A41.9 Sepsis, unspecified organism (principal); N17.0 Acute kidney failure with tubular necrosis; I21.A1 Myocardial infarction type 2; J15.9 Unspecified bacterial pneumonia; J90 Pleural effusion, not elsewhere classified; E44.0 Moderate protein-calorie malnutrition; J96.02 Acute respiratory failure with hypercapnia; J96.01 Acute respiratory failure with hypoxia; E11.22 Type 2 diabetes mellitus with diabetic chronic kidney disease; E11.65 Type 2 diabetes mellitus with hyperglycemia; E83.39 Other disorders of phosphorus metabolism; I27.20 Pulmonary hypertension, unspecified; E87.5 Hyperkalemia; N39.0 Urinary tract infection, site not specified; E86.0 Dehydration; D50.9 Iron deficiency anemia, unspecified; B96.20 Unspecified Escherichia coli [E. coli] as the cause of diseases classified elsewhere; I12.9 Hypertensive chronic kidney disease with stage 1 through stage 4 chronic kidney disease, or unspecified chronic kidney disease; I48.91 Unspecified atrial fibrillation; N18.9 Chronic kidney disease, unspecified; R65.20 Severe sepsis without septic shock; Z87.442 Personal history of urinary calculi; Z79.84 Long term (current) use of oral hypoglycemic drugs; E88.09 Other disorders of plasma-protein metabolism, not elsewhere classified; M62.50 Muscle wasting and atrophy, not elsewhere classified, unspecified site; Z68.1 Body mass index [BMI] 19.9 or less, adult; E80.6 Other disorders of bilirubin metabolism; J98.11 Atelectasis; K12.0 Recurrent oral aphthae; Z79.4 Long term (current) use of insulin; M81.0 Age-related osteoporosis without current pathological fracture; Z79.01 Long term (current) use of anticoagulants
CPT/HCPCS: 31720; 36410; 36415; 36600; 71045-TC; 76770-TC; 80048-TC; 80053-TC; 80061-TC; 81000-TC; 82248-TC; 82550-TC; 82570-TC; 82803-TC; 82962-TC; 83540-TC; 83605-TC; 83735-TC; 83970; 84100-TC; 84155; 84155-TC; 84165; 84300-TC; 84478-TC; 84484-TC; 85025-TC; 85610-TC; 86704; 86706; 86850-TC; 87040-TC; 87070-TC; 87075-TC; 87081-TC; 87086-TC; 87186-TC; 87340; 90935-TC; 92526; 92611-TC; 93307-TC; 93970-TC; 94003-TC; 94760-TC; 94799-TC; 97110-TC; 97112-TC; 97116-TC; 97530-TC; A4216; A6403; C1750; G0378; J0360; J0456; J0610; J0690; J0696; J1644; J1815; J2270; J2405; J2704; J2916; J3010; J3475; J3490; J7030; J7042; J7050; J7060; J7070

== ENCOUNTER 2019-09-29 06:38 | Inpatient (IN) | payer OTHER ==
[~2019-09-29] VITALS: Ht 165.1 cm; Wt 55.8 kg
[~2019-09-29 06:38] MED LIST: ACET500C4 PO; ALEN70TA6 PO; AMLO5TAB4 PO; BENA40TA8 PO; CALC-20 PO; HYDR100T27 PO; IBUP-1953 PO; INSU100V10 SQ; NPH,100V2 SQ
--- NOTE | 2019-09-29 08:45 | NUR ---
RECEIVED REPORT FROM VIKRAM TONY FROM [facility]
[2019-09-29] MEDS ORDERED: ACET-868 PO (09:50)
[2019-09-29] MEDS ORDERED: GUAI5SYR PO (09:50)
[2019-09-29] MEDS ORDERED: CALC-7 PO (09:50)
[2019-09-29 10:00] VITALS: BP 139/66
--- NOTE | 2019-09-29 10:00 | NUR ---
RN NOTE PATIENT ARRIVED VIA GURNEY. PATIENT AWAKE AND ALERT, MARSHALLESE SPEAKING. LIMITED SALVADOREAN. PER EMT, SHE WAS VERY LETHARGIC AND SWEATING EN ROUTE. BS WAS CHECKED AND IT WAS 20s. D10 WAS GIVEN, BS WENT UP TO 200. CHECKED PATIENT'S BS UPON ARRIVAL, BS WAS 54. PAGED CLARENCE GUTIERREZ. OK TO GIVE D50 INJ IVP. PATIENT HAS A LEFT AC #20. HAS X1 BM EN ROUTE, BROWN IN COLOR. ON 2L NC, SATURATING WELL. NO COMPLAINS OF ANY PAIN NOR SOB AT THIS TIME. WILL CONTINUE TO MONITOR PATIENT CLOSELY PER DR HARJIT RIOS TO DOWNGRADE PATIENT TO TELEMETRY
[2019-09-29] MEDS ORDERED: DEXTROSE 50%-WATER 50 ML DISP.SYRIN IVP ONE (10:30)
[2019-09-29] MEDS ORDERED: ZOLPIDEM TARTRATE 5 MG TABLET PO PRN (11:00)
[2019-09-29] MEDS ORDERED: ACETAMINOPHEN 325 MG TABLET PO PRN (11:00)
[2019-09-29] MEDS ORDERED: MAGNESIUM HYDROXIDE 30 ML UDC PO PRN (11:00)
[2019-09-29] MEDS ORDERED: Z GUARD REMEDY 2 OZ OINT TP PRN (11:00)
[2019-09-29] MEDS ORDERED: ONDANSETRON HCL/PF 4 MG/2 ML VIAL IVP PRN (11:00)
[2019-09-29] MEDS ORDERED: MAG HYDROX/AL HYDROX/SIMETH 30 ML UDC PO PRN (11:00)
--- NOTE | 2019-09-29 11:00 | NUR ---
RN NOTE RECHECKED PATIENT'S BS, 84
[2019-09-29 11:48] LABS: BASOPHILS % (AUTO) 0.3 % (0.0-2.0); EOSINOPHILS % (AUTO) 0.1 % (0.0-6.0); HEMATOCRIT 33 % (33-45); HEMOGLOBIN 10.5 g/dL (11.5-14.8); LYMPHOCYTES # (AUTO) 0.4 /CMM (0.8-4.8); LYMPHOCYTES % (AUTO) 4.2 % (20.0-44.0); MEAN CORPUSCULAR HGB CONC 32 g/dl (31.0-36.0); MEAN CORPUSCULAR VOLUME 83 fL (82-100); MONOCYTES # (AUTO) 0.5 /CMM (0.1-1.30); MONOCYTES % (AUTO) 5.5 % (2.0-12.0); NEUTROPHILS # (AUTO) 8.3 /CMM (1.8-8.9); NEUTROPHILS % (AUTO) 89.9 % (43.0-81.0); PLATELET COUNT (AUTO) 149 /CMM (150-450); RED BLOOD CELL COUNT(AUTO) 3.97 MIL/uL (4.0-5.2); WHITE BLOOD COUNT (AUTO) 9.2 K/uL (4.3-11.0)
[2019-09-29 12:00] VITALS: BP 133/71
[2019-09-29] MEDS ORDERED: VANCOMYCIN 1 GM in IV D5W 250 ML IV ONE (12:00)
[2019-09-29] MEDS: DEXTROSE 50%-WATER 50 ML DISP.SYRIN IV PRN (12:12)
[2019-09-29 12:14] LABS: ALBUMIN 2.3 g/dL (3.4-5.0); BILIRUBIN,TOTAL 0.8 mg/dL (0.2-1.0); CALCIUM, SERUM 7.2 mg/dL (8.5-10.1); PHOSPHORUS 2.4 mg/dL (2.5-4.9); POTASSIUM 2.9 mmol/L (3.5-5.1); THYROID STIMULATING HORMONE 1.075 uIU/mL (0.358-3.74); TOTAL PROTEIN, SERUM 5.6 g/dL (6.4-8.2)
[2019-09-29] MEDS: BLOOD SUGAR DIAGNOSTIC 1 EACH STRIP IN SCH ×3 (12:16→21:16)
--- NOTE | 2019-09-29 12:16 | NUR ---
RN NOTE PATIENT'S BS WENT DOWN AGAIN TO 22, RECHECKED IT WENT UP TO 27. D50 INJ GIVEN. PAGED MATT BRENNAN, WAITING FOR A CALL BACK. PATIENT IS AWAKE, BUT VERY LETHARGIC. OPENS EYES WHEN CALLED BY NAME
[2019-09-29 12:33] LABS: MAGNESIUM 1.2 mg/dL (1.8-2.4)
[2019-09-29] MEDS ORDERED: FEE PK DOSING 1 MIN EA MC ONE (12:45)
[2019-09-29] MEDS: Sodium Chloride 154 MEQ in IV 10% DEXTROSE 1,000 ML IV PRN (13:26)
[2019-09-29] MEDS ORDERED: CEFEPIME 1 GM in IV D5W 50 ML IV ONE (14:00)
[2019-09-29] MEDS ORDERED: K PHOS NEUTRAL 250 MG TABLET PO ONE (14:30)
[2019-09-29] MEDS: POTASSIUM CHLORIDE 20 MEQ TAB.PRT.SR PO SCH ×3 (14:51→16:34)
[2019-09-29] MEDS: Magnesium 1GM/D5W 100ML PREMIX 100 ML IV SCH ×4 (15:59→18:57)
[2019-09-29 16:00] VITALS: BP 157/72
[2019-09-29] MEDS: ENOXAPARIN SODIUM 60 MG/0.6 ML DISP.SYRIN SQ SCH (16:02)
--- NOTE | 2019-09-29 16:30 | NUR ---
RN NOTE CALLED PHARMACY TO DO REPLACEMENTS SINCE PATIENT'S K, PHOS AND MG WAS ALL LOW. PER PHARMACY THEY WILL ORDER REPLACEMENTS AND MAKE SURE TO LET MD KNOW CALLED MATT BRENNAN DNP. OK WITH REPLACEMENTS. ALSO MADE HIM AWARE REGARDING THE US OF LOWER EXT. HE SAID HE WILL ORDER LOVENOX PER PHARMACY DOSE
--- NOTE | 2019-09-29 18:54 | NUR ---
RN CLOSING NOTE PATIENT IN BED, AWAKE AND ALERT. TUVALUAN SPEAKING. NO COMPLAINS OF ANY PAIN NOR SOB AT THIS TIME. ALL MEDS GIVEN. ALL NEEDS MET. REPOSITIONED PER PROTOCOL. BED LOCKED AND IN LOWEST POSITION. CALL LIGHT WITHIN REACH. WILL ENDORSE TO NOC SHIFT FOR LEANDER
--- NOTE | 2019-09-29 19:37 | NUR ---
SALES AND RETAIL MANAGEMENT RECRUITER NOTES RECEIVED PT ON BED BED AWAKE ABLE TO CONVERSE BUT ONLY MOZAMBICAN CAN UNDERSTAND SOME CENTRAL AFRICAN, ON O2 VIA NC @ 3L TOLERATING WELL WITH O2 SAT OF . 92%, ON TELE MONITOR WITH CURRENT READING OF AFIB 87, WITH IV LINE ON LFA HOOK TO D10W @100ML/HR INFUSING WELL NEGATIVE INFILTRATION NOTED, SAFETY MEASURE MAINTAINED, BED AT LOWEST POSITION, SIDE RAILS UP X2 CALL LIGHT WITHIN REACH, WILL MONITOR KEPT MONITORING THE PT, DUE TO LOW BLOOD SUGAR PER AM SHIFT NURSE ENDORSE
[2019-09-29 20:00] VITALS: BP 122/73
[2019-09-29 20:03] VITALS: BP 122/73
--- NOTE | 2019-09-29 22:30 | NUR ---
RN NOTES, RECEIVED POSITIVE RESULTS FOR BLOOD CULTURE FROM [facility] VIA FAX AND INFORMED ANEUDY WEBER COMPENSATION COORDINATOR, AND HE REPLIED WITH NO NEW ORDERS AT THIS TIME.
[2019-09-30] VITALS (7 sets, daily range): BP systolic 141–169; BP diastolic 66–85
[2019-09-30] MEDS: Sodium Chloride 154 MEQ in IV 10% DEXTROSE 1,000 ML IV PRN ×2 (00:47→12:13)
[2019-09-30 07:14] LABS: BASOPHILS # (AUTO) 0.1 /CMM (0.0-0.2); BASOPHILS % (AUTO) 1.1 % (0.0-2.0); EOSINOPHILS % (AUTO) 2.2 % (0.0-6.0); HEMATOCRIT 32 % (33-45); LYMPHOCYTES # (AUTO) 0.8 /CMM (0.8-4.8); MEAN CORPUSCULAR HGB CONC 31 g/dl (31.0-36.0); MEAN CORPUSCULAR VOLUME 85 fL (82-100); MONOCYTES # (AUTO) 0.4 /CMM (0.1-1.30); MONOCYTES % (AUTO) 6.3 % (2.0-12.0); NEUTROPHILS # (AUTO) 4.5 /CMM (1.8-8.9); NEUTROPHILS % (AUTO) 77.4 % (43.0-81.0); PLATELET COUNT (AUTO) 155 /CMM (150-450); RED BLOOD CELL COUNT(AUTO) 3.76 MIL/uL (4.0-5.2); WHITE BLOOD COUNT (AUTO) 5.9 K/uL (4.3-11.0)
--- NOTE | 2019-09-30 07:29 | NUR ---
RN CLOSING NOTE PATIENT IN BED, AWAKE AND ALERT. ITALIAN SPEAKING. TELE MONITOR CURRENT READING AFIB UNCONTROLLED NO COMPLAINS OF ANY PAIN NOT SOB AT THIS TIME. ALL MEDS GIVEN. ALL NEEDS MET. REPOSITIONED PER PROTOCOL. BED LOCKED AND IN LOWEST POSITION. CALL LIGHT WITHIN REACH. WILL ENDORSE TO AM SHIFT FOR LEANDER
[2019-09-30 07:40] LABS: CALCIUM, SERUM 7.2 mg/dL (8.5-10.1); CREATININE 1.1 mg/dL (0.6-1.3); MAGNESIUM 2.2 mg/dL (1.8-2.4); POTASSIUM 4.4 mmol/L (3.5-5.1)
[2019-09-30] MEDS: BLOOD SUGAR DIAGNOSTIC 1 EACH STRIP IN SCH ×4 (07:45→21:23)
[2019-09-30] MEDS: PANTOPRAZOLE 40 MG TABLET.DR PO SCH (07:46)
--- NOTE | 2019-09-30 08:03 | NUR ---
raffaele rn note patient in bed ,alert awake , speaks Chadian, on tele monitor afib hr 103 noted ,with dry cough ,noted keep hob elevated at this time ,rt fa hl intact,and flushed well , on 3l nc with slight sob noted , bed in lowest and locked position , call light within reach, will cont to monitor , ivf as ordered
[2019-09-30] MEDS: ENOXAPARIN SODIUM 60 MG/0.6 ML DISP.SYRIN SQ SCH ×2 (08:34→21:18)
--- NOTE | 2019-09-30 09:07 | NUR ---
raffaele rn note seen by grid trimmer dr Evans aware that coughing in am also aware that lt leg partial dvt with Lovenox, will monitor
--- NOTE | 2019-09-30 09:18 | NUR ---
raffaele rn note spoke with dr Ybarra change management , notified that patient has dry cough in am and chest xray result, stated hat will check it out
--- NOTE | 2019-09-30 09:41 | NUR ---
RUBA RN Notes Per request of Dr. Sandoval consent obtained for CT angio pulmonary. Son called via phone and okayed procedure. Patient has been provided with informed consent and education on procedure.
[2019-09-30] MEDS ORDERED: IOHEXOL-350 100 ML VIAL IV ONE (09:53)
[2019-09-30] MEDS ORDERED: CT SWABBABLE VALVE TRANS SET 1 EA INFUS.SET MC ONE (09:53)
[2019-09-30] MEDS ORDERED: IV NS 0.9% 250 ML IV ONE (09:53)
--- NOTE | 2019-09-30 10:34 | NUR ---
raffaele rn note notified to rn gretel thacker that patient has dry cough ok to ct angio and per dr norman start on breathing tx also aware that on d10w at 100 ml per hour and aware that patient blood sugar at 0700 107 mg\dl ,will monitor ok to place mid line
--- NOTE | 2019-09-30 10:45 | NUR ---
RUBA RN Notes Patient left for pulmonary angio study. Patient stable. Transported with VIKRAM King.
--- NOTE | 2019-09-30 11:01 | NUR ---
RUBA RN Notes Patient back from CT Scan. Patient is in stable condition resting in bed comfortably. Continuing to monitor. All measures taken to ensure patient safety. Paula from CT called to remind not to administer any oral antidiabetic agents. Will endorse need to avoid oral antidiabetic agents to table games shift manager.
[2019-09-30] MEDS: IPRATROPIUM NEB FS 0.5 MG/2.5 ML AMPUL.NEB NEB SCH ×4 (11:12→23:20)
[2019-09-30] MEDS: ALBUTEROL HALF STRENGTH 1.25 MG/3 ML VIAL.NEB NEB SCH ×4 (11:12→23:20)
[2019-09-30] MEDS: ACETYLCYSTEINE 10% SOLN 400 MG/4 ML VIAL NEB SCH ×3 (11:12→23:20)
[2019-09-30] MEDS: DILTIAZEM HCL 30 MG TABLET PO SCH ×2 (11:18→21:14)
--- NOTE | 2019-09-30 11:37 | NUR ---
RUBA SUE NOTE ON BREATHING TX BY RT, ALL NEEDS ATTENDED ,WILL Marlyn Addendum: 09/30/19 at 1140 by XIMENA ROLLE RN NOTED COUGH WHILE EATING MATT LIMA NOTIFIED OK TO DO SWALLOW EVAL ,WILL Marlyn
--- NOTE | 2019-09-30 11:46 | NUR ---
RUBA RN NOTES PATIENT BLOOD GLUCOSE IS 201. PATIENT HAS PMH OF HYPOGLYCEMIC EPISODES WITH INSULIN. HOLDING DOSE OF 1200 INSULIN AT THIS TIME. WILL COLLABORATE WITH PROVIDER ON NEW DOSING SCHEDULE.
--- NOTE | 2019-09-30 12:25 | NUR ---
RUBA RN NOTE MID LINE ON RT UPPER ARM INSERTED BY PICC LINE FAMILY FRANKIE AT BEDSIDE
[2019-09-30] MEDS: CEFEPIME 1 GM in IV D5W 50 ML IV SCH (13:11)
--- NOTE | 2019-09-30 15:00 | NUR ---
RUBA RN NOTE ALL NEEDS ATTENDED, TURN REPOSITION ,FAMILY AT BEDSIDE, WILL CONT TO MONITOR
[2019-09-30] MEDS ORDERED: VANCOMYCIN 500 MG in IV D5W 100 ML IV PRN (17:00)
[2019-09-30] MEDS: INSULIN REGULAR, HUMAN 100 UNIT/ML 3 ML VIAL SQ PRN ×2 (17:22→21:22)
--- NOTE | 2019-09-30 18:08 | NUR ---
RUBA RN NOTE BLOOD SUGAR 331MG\DL , CALLED TO MATT WITH ORDER TO D\C D10NS AND START D5NS AT 50 ML PER HOUR MG\DL ,ORDER CARRIED OUT
[2019-09-30] MEDS: IV D5/ 0.9% NACL 1,000 ML IV PRN (18:18)
--- NOTE | 2019-09-30 18:55 | NUR ---
RUBA RN NOTE FED BY , ALL NEEDS ATTENDED KEEP CLEAN DRY CONT ON IV ORDERED D5 NS AT 50 ML PER HOUR , WILL CONT TO MONITOR STAFF
[2019-10-01] VITALS: BP 137/76
[2019-10-01] MEDS: GUAIFENESIN/D-METHORPHAN HB 5 ML UDC PO PRN (00:32)
[2019-10-01] MEDS: IPRATROPIUM NEB FS 0.5 MG/2.5 ML AMPUL.NEB NEB SCH ×6 (03:27→23:11)
[2019-10-01] MEDS: ALBUTEROL HALF STRENGTH 1.25 MG/3 ML VIAL.NEB NEB SCH ×6 (03:27→23:11)
[2019-10-01 04:00] VITALS: BP 150/84
[2019-10-01] MEDS: DILTIAZEM HCL 30 MG TABLET PO SCH ×3 (06:02→21:16)
[2019-10-01 06:23] LABS: BASOPHILS # (AUTO) 0.1 /CMM (0.0-0.2); BASOPHILS % (AUTO) 1.8 % (0.0-2.0); EOSINOPHILS % (AUTO) 1.8 % (0.0-6.0); HEMATOCRIT 30 % (33-45); HEMOGLOBIN 9.3 g/dL (11.5-14.8); LYMPHOCYTES # (AUTO) 0.9 /CMM (0.8-4.8); LYMPHOCYTES % (AUTO) 13.9 % (20.0-44.0); MEAN CORPUSCULAR HGB CONC 31 g/dl (31.0-36.0); MEAN CORPUSCULAR VOLUME 85 fL (82-100); MONOCYTES # (AUTO) 0.4 /CMM (0.1-1.30); MONOCYTES % (AUTO) 6.4 % (2.0-12.0); NEUTROPHILS % (AUTO) 76.1 % (43.0-81.0); PLATELET COUNT (AUTO) 195 /CMM (150-450); RED BLOOD CELL COUNT(AUTO) 3.53 MIL/uL (4.0-5.2); WHITE BLOOD COUNT (AUTO) 6.6 K/uL (4.3-11.0)
[2019-10-01 06:33] LABS: CALCIUM, SERUM 7.4 mg/dL (8.5-10.1); CARBON DIOXIDE 28 mmol/L (21-32); CHLORIDE 103 mmol/L (98-107); CREATININE 1.3 mg/dL (0.6-1.3); GLUCOSE 114 mg/dL (74-106); PHOSPHORUS 3.1 mg/dL (2.5-4.9); POTASSIUM 4.3 mmol/L (3.5-5.1); SODIUM SERUM 138 mmol/L (136-145); UREA NITROGEN, BLOOD 14 mg/dL (7-18)
--- NOTE | 2019-10-01 07:37 | NUR ---
RN NOTES PATIENT AWAKE, ALERT AND VERBALLY ABLE TO COMMUNICATE NEEDS. MARSHALLESE SPEAKING. NO SIGNIFICANT CHANGE OF CONDITION. VITAL SIGNS WITHIN NORMAL LIMITS. NO COMPLAINT OF PAIN OR DISCOMFORT. NOTED WITH SEVERE PRODUCTIVE COUGH, ROBITUSSIN GIVEN WITH HELP. KEPT CLEAN AND DRY. ENDORSE TO NEXT SHIFT FOR CONTINUITY OF CARE.
[2019-10-01] MEDS: BLOOD SUGAR DIAGNOSTIC 1 EACH STRIP IN SCH ×4 (07:51→21:21)
[2019-10-01] MEDS: ACETYLCYSTEINE 10% SOLN 400 MG/4 ML VIAL NEB SCH ×3 (07:56→23:11)
[2019-10-01 08:00] VITALS: BP_SYST 155; BP_DIAS 72; BP_DIAS 73
[2019-10-01] MEDS: PANTOPRAZOLE 40 MG TABLET.DR PO SCH (08:05)
[2019-10-01] MEDS: ENOXAPARIN SODIUM 60 MG/0.6 ML DISP.SYRIN SQ SCH (08:25)
--- NOTE | 2019-10-01 09:49 | NUR ---
TELE/RN NOTES PATIENT SEEN AND EVALUATED BY SPEECH THERAPIST ARSEN WITH ORDERS TO DO VIDEO SWALLOW. ALL ORDERS NOTED AND CARRIED OUT. WILL CONTINUE TO MONITOR PATIENT CLOSELY.
[2019-10-01 12:00] VITALS: BP 135/76
[2019-10-01] MEDS: INSULIN REGULAR, HUMAN 100 UNIT/ML 3 ML VIAL SQ PRN ×2 (12:15→21:22)
[2019-10-01 12:41] LABS: APPEARANCE,URINE SL CLOUDY (CLEAR); BILIRUBIN,URINE NEGATIVE (NEGATIVE); BLOOD, URINE NEGATIVE Ery/uL (NEGATIVE); COLOR,URINE YELLOW (YELLOW); KETONES,URINE NEGATIVE (NEGATIVE); LEUKOCYTE ESTERASE ,URINE TRACE (NEGATIVE); NITRITE, URINE NEGATIVE (NEGATIVE); PROTEIN,URINE TRACE mg/dl (NEGATIVE); UGLUCOSE NEGATIVE (NEGATIVE); UROBILINOGEN,URINE 0.2 EU/dL (0.2)
[2019-10-01 12:45] LABS: RBC,URINE NONE SEEN /HPF (0-2)
[2019-10-01 12:46] LABS: BACTERIA,URINE None seen /HPF (None Seen); SQUAMOUS EPITHELIAL CELL,UR Few /HPF (None Seen); YEAST,URINE Many /HPF (None Seen)
[2019-10-01] MEDS: CEFEPIME 1 GM in IV D5W 50 ML IV SCH (14:00)
[2019-10-01 16:00] VITALS: BP 157/84
[2019-10-01] MEDS ORDERED: VANCOMYCIN 1 GM in IV D5W 250ml IV SCH (16:00)
--- NOTE | 2019-10-01 19:13 | NUR ---
MS RN NOTE RECEIVED PT IN STABLE CONDITION A/O X3, NOTED IN BED. NO SIGNS OF SOB OR DISTRESS, NO C/O PAIN OR N/V. MIDLINE IN MISSAEL IN PLACE WITH IVF INFUSING. ALL CURRENT NEEDS ATTENDED TO. BED LOW, LOCKED, UPPER RAILS UP, AND CALL LIGHT WITHIN REACH. WILL CONT. TO MONITOR.
--- NOTE | 2019-10-01 19:30 | NUR ---
MS/RN NOTES PATIENT CONTINUES TO REMAIN IN STABLE CONDITION THROUGHOUT THE SHIFT. PROVIDED COMFORT AND SAFETY. PATIENT ABLE TO TOLERATE MEALS AND MEDS WELL. IV ACCESS INTACT AND PATENT. TOLERATING HYDRATION WELL. ALL NEEDS ANTICIPATED. CALL LIGHT WITHIN REACHED. BED LOCKED AND IN LOWEST POSITION. SAFETY MAINTAINED. WILL CONTINUE TO MONITOR. ENDORSED TO PM NURSE FOR LEANDER.
[2019-10-01 20:00] VITALS: BP 136/62
[2019-10-02] MEDS: IV D5/ 0.9% NACL 1,000 ML IV PRN (00:20)
[2019-10-02] MEDS: GUAIFENESIN/D-METHORPHAN HB 5 ML UDC PO PRN (00:33)
[2019-10-02] MEDS: ALBUTEROL HALF STRENGTH 1.25 MG/3 ML VIAL.NEB NEB SCH ×6 (04:02→23:13)
[2019-10-02] MEDS: IPRATROPIUM NEB FS 0.5 MG/2.5 ML AMPUL.NEB NEB SCH ×6 (04:02→23:13)
[2019-10-02] MEDS: DILTIAZEM HCL 30 MG TABLET PO SCH ×3 (04:31→21:46)
[2019-10-02 04:40] VITALS: BP 149/77
--- NOTE | 2019-10-02 06:29 | NUR ---
MS RN NOTE PT REMAINS IN STABLE CONDITION A/O X3, NOTED IN BED. NO SIGNS OF SOB OR DISTRESS, NO C/O PAIN OR N/V. MIDLINE IN MISSAEL IN PLACE WITH IVF INFUSING. ALL CURRENT NEEDS ATTENDED TO. BED LOW, LOCKED, UPPER RAILS UP, AND CALL LIGHT WITHIN REACH. WILL CONT. TO MONITOR AND ENDORSE TO NEXT SHIFT FOR LEANDER.
[2019-10-02 06:33] LABS: BASOPHILS # (AUTO) 0.1 /CMM (0.0-0.2); BASOPHILS % (AUTO) 1.1 % (0.0-2.0); EOSINOPHILS % (AUTO) 2.8 % (0.0-6.0); HEMATOCRIT 29 % (33-45); HEMOGLOBIN 9.2 g/dL (11.5-14.8); LYMPHOCYTES # (AUTO) 0.7 /CMM (0.8-4.8); LYMPHOCYTES % (AUTO) 10.6 % (20.0-44.0); MEAN CORPUSCULAR HGB CONC 31 g/dl (31.0-36.0); MEAN CORPUSCULAR VOLUME 85 fL (82-100); MONOCYTES # (AUTO) 0.4 /CMM (0.1-1.30); MONOCYTES % (AUTO) 5.6 % (2.0-12.0); NEUTROPHILS # (AUTO) 5.4 /CMM (1.8-8.9); NEUTROPHILS % (AUTO) 79.9 % (43.0-81.0); PLATELET COUNT (AUTO) 202 /CMM (150-450); RED BLOOD CELL COUNT(AUTO) 3.45 MIL/uL (4.0-5.2); WHITE BLOOD COUNT (AUTO) 6.8 K/uL (4.3-11.0)
[2019-10-02 06:46] LABS: CALCIUM, SERUM 7.4 mg/dL (8.5-10.1); CREATININE 1.2 mg/dL (0.6-1.3); MAGNESIUM 1.6 mg/dL (1.8-2.4); PHOSPHORUS 3.1 mg/dL (2.5-4.9); POTASSIUM 4.2 mmol/L (3.5-5.1)
--- NOTE | 2019-10-02 07:08 | NUR ---
INITIAL RECEIVED PT IN STABLE CONDITION A/O X3, NOTED IN BED. NO SIGNS OF SOB OR DISTRESS, NO C/O PAIN OR N/V. MIDLINE IN MISSAEL IN PLACE WITH IVF INFUSING. ALL CURRENT NEEDS ATTENDED TO. BED LOW, LOCKED, UPPER RAILS UP, AND CALL LIGHT WITHIN REACH. WILL CONTINUE TO MONITOR.
[2019-10-02] MEDS: BLOOD SUGAR DIAGNOSTIC 1 EACH STRIP IN SCH ×4 (07:31→22:00)
[2019-10-02] MEDS: PANTOPRAZOLE 40 MG TABLET.DR PO SCH (07:33)
[2019-10-02] MEDS: ACETYLCYSTEINE 10% SOLN 400 MG/4 ML VIAL NEB SCH ×3 (07:35→23:13)
[2019-10-02] MEDS: INSULIN REGULAR, HUMAN 100 UNIT/ML 3 ML VIAL SQ PRN ×5 (07:43→23:12)
--- NOTE | 2019-10-02 07:51 | NUR ---
PT. AWAKE AND RESPONSIVE EATING FOOD ASKING TO SKIP HHN TX'S AT THIS TIME NO SOB NOTED. REFUSING ANY CONTACT OR SUCTIONING VITALS WITHIN NORMAL RANGE.
[2019-10-02 08:00] VITALS: BP 148/68
[2019-10-02] MEDS ORDERED: Magnesium 1GM/D5W 100ML PREMIX 100 ML IV SCH (08:18)
[2019-10-02] MEDS: Magnesium 1GM/D5W 100ML PREMIX 100 ML IV SCH ×2 (08:59→09:37)
[2019-10-02] MEDS ORDERED: APIXABAN 5 MG TABLET PO SCH (09:30)
[2019-10-02] MEDS: APIXABAN 5 MG TABLET PO SCH ×2 (09:51→17:28)
[2019-10-02 12:00] VITALS: BP 148/68
[2019-10-02] MEDS ORDERED: GUAIFENESIN/D-METHORPHAN HB 5 ML UDC PO PRN (13:00)
[2019-10-02] MEDS ORDERED: IBUPROFEN 400 MG TABLET PO PRN (13:00)
[2019-10-02] MEDS ORDERED: ACETAMINOPHEN 325 MG TABLET PO PRN (13:00)
[2019-10-02] MEDS ORDERED: CEFEPIME 2 GM in IV D5W 100 ML IV SCH (14:00)
[2019-10-02] MEDS: CEFEPIME 2 GM in IV D5W 100 ML IV SCH (14:34)
[2019-10-02] MEDS: hydrALAZINE HCL 50 MG TABLET PO SCH ×2 (14:36→21:45)
[2019-10-02 16:00] VITALS: BP 133/59
[2019-10-02] MEDS ORDERED: MICAFUNGIN SODIUM 100 MG in IV NS 0.9% 100 ML IV SCH (18:00)
--- NOTE | 2019-10-02 18:23 | NUR ---
CLOSING PATIENT CONTINUES TO REMAIN IN STABLE CONDITION THROUGHOUT THE SHIFT. PROVIDED COMFORT AND SAFETY. PATIENT ABLE TO TOLERATE MEALS AND MEDS WELL. IV ACCESS INTACT AND PATENT. TOLERATING HYDRATION WELL. ALL NEEDS ANTICIPATED. CALL LIGHT WITHIN REACHED. BED LOCKED AND IN LOWEST POSITION. SAFETY MAINTAINED. WILL CONTINUE TO MONITOR. ENDORSED TO PM NURSE FOR CONTINUITY OF CARE.
[2019-10-02 20:00] VITALS: BP 160/77
[2019-10-03] MEDS: ALBUTEROL HALF STRENGTH 1.25 MG/3 ML VIAL.NEB NEB SCH ×5 (02:57→20:01)
[2019-10-03] MEDS: IPRATROPIUM NEB FS 0.5 MG/2.5 ML AMPUL.NEB NEB SCH ×5 (02:57→20:01)
[2019-10-03 04:00] VITALS: BP 136/67
[2019-10-03] MEDS: hydrALAZINE HCL 50 MG TABLET PO SCH ×3 (04:50→21:32)
[2019-10-03] MEDS: DILTIAZEM HCL 30 MG TABLET PO SCH ×3 (04:51→21:33)
[2019-10-03 06:28] LABS: BASOPHILS # (AUTO) 0.1 /CMM (0.0-0.2); BASOPHILS % (AUTO) 0.8 % (0.0-2.0); EOSINOPHILS % (AUTO) 2.5 % (0.0-6.0); HEMATOCRIT 29 % (33-45); HEMOGLOBIN 9.2 g/dL (11.5-14.8); LYMPHOCYTES # (AUTO) 0.6 /CMM (0.8-4.8); LYMPHOCYTES % (AUTO) 8.9 % (20.0-44.0); MEAN CORPUSCULAR HGB CONC 32 g/dl (31.0-36.0); MEAN CORPUSCULAR VOLUME 84 fL (82-100); MONOCYTES # (AUTO) 0.4 /CMM (0.1-1.30); NEUTROPHILS # (AUTO) 5.8 /CMM (1.8-8.9); NEUTROPHILS % (AUTO) 81.8 % (43.0-81.0); PLATELET COUNT (AUTO) 250 /CMM (150-450); RED BLOOD CELL COUNT(AUTO) 3.49 MIL/uL (4.0-5.2); WHITE BLOOD COUNT (AUTO) 7.1 K/uL (4.3-11.0)
[2019-10-03 06:43] LABS: CALCIUM, SERUM 7.5 mg/dL (8.5-10.1); CREATININE 1.2 mg/dL (0.6-1.3); MAGNESIUM 2.1 mg/dL (1.8-2.4); PHOSPHORUS 3.3 mg/dL (2.5-4.9); POTASSIUM 4.2 mmol/L (3.5-5.1)
[2019-10-03] MEDS: BLOOD SUGAR DIAGNOSTIC 1 EACH STRIP IN SCH ×4 (07:06→21:42)
[2019-10-03] MEDS: INSULIN REGULAR, HUMAN 100 UNIT/ML 3 ML VIAL SQ PRN ×2 (07:07→16:45)
--- NOTE | 2019-10-03 07:08 | NUR ---
RN NOTES PATIENT IN BED WITH NO DISTRESS NOTED. BREATHING EVEN AND UNLABORED. ON 3L02 VIA NASAL CANNULA WELL TOLERATED. ALERT AND ORIENTED. VERBALLY ABLE TO COMMUNICATE NEEDS. NO COMPLAINT OF PAIN OR DISCOMFORT. NO SIGNIFICANT CHANGE OF CONDITION. LAB CALLED AT 0700 ABOUT GLUCOSE AT 50 MG/DL LEVEL, CHECKED POC, 70MG/DL. WILL ENDORSE TO NEXT SHIFT FOR CONTINUITY OF CARE
[2019-10-03] MEDS: ACETYLCYSTEINE 10% SOLN 400 MG/4 ML VIAL NEB SCH ×2 (07:35→15:43)
[2019-10-03] MEDS: PANTOPRAZOLE 40 MG TABLET.DR PO SCH (07:51)
--- NOTE | 2019-10-03 07:52 | NUR ---
M/S RN OPENING NOTES RECEIVED PT ON BED, A/OX3, TELUGU SPEAKING, RESPIRATION NOT IN ACUTE RESPIRATORY DISTRESS, OXYGEN AT 3LPM DUE TO SOB AND COURSE CRACKLES. HOB ELEVATED. ON STRICT ASPIRATION WHEN FEEDING. ABD SOFT AND NON DISTENDED WITH ACTIVE BOWEL SOUNDS. SKIN WARM TO TOUCH AND DRY. DENIES PAIN AND DISCOMFORT. IV SITE AT LEFT UPPER ARM MIDLINE, RIGHT AC #20 PATENT IN FLUSHING, BOTH SITES NO S/SX ON INFILTRATION. PER NIGHT NURSE CJ REPORT, CRITICAL LEVEL OF GLUCOSE RECEIVED AT 50 (10/03/2019 @ 0700), GIVEN JUICE, RE-CHECKED POC AT 70. NOT REPORTED TO MD. CALL LIGHT WITHIN REACH. SIDE RAILS X2 FOR SAFETY, BED IN LOCKED POSITION. WILL CONTINUE TO EVALUATE CARE.
--- NOTE | 2019-10-03 07:59 | NUR ---
M/S RN NOTES RIGHT FEMORAL HD SITE CLEAN AND DRY DRESSING. NO S/SX OF INFECTION ASSESSED
[2019-10-03 08:00] VITALS: BP 146/69
[2019-10-03] MEDS: ALENDRONATE 70 MG TABLET PO SCH (08:23)
[2019-10-03 08:54] VITALS: BP 146/69
[2019-10-03] MEDS: BENAZEPRIL HCL 20 MG TABLET PO SCH (08:57)
[2019-10-03] MEDS: CALCIUM CARB 250MG /VITAMIN D 1 UDTAB PO SCH (08:57)
[2019-10-03] MEDS: APIXABAN 5 MG TABLET PO SCH ×2 (08:58→16:43)
[2019-10-03] MEDS: INSULIN GLARGINE, 100 UNIT/ML CARTRIDGE SQ SCH ×2 (08:58→09:00)
--- NOTE | 2019-10-03 09:21 | NUR ---
M/S RN NOTES LANTUS 50 UNITS DUE AT 9AM NOT GIVEN DUE TO GLUCOSE FROM LAB DRAWN OF 50. POC AT 99. CONSUMED BREAKFAST OF 25% PER SENIOR TRAINER. WILL CONTINUE TO MONITOR PATIENT FOR ANY S/SX ON HYPOGLYCEMIA.
[2019-10-03] MEDS: CEFEPIME 2 GM in IV D5W 100 ML IV SCH (13:00)
--- NOTE | 2019-10-03 13:09 | NUR ---
M/S RN NOTES PT SKIN WARM TO TOUCH, TEMP ASSESSED 97.8. ROOM TEMPERATURE ADJUSTED ACCORDING TO PATIENT'S COMFORT. WILL CONTINUE TO MONITOR
[2019-10-03 16:00] VITALS: BP 146/71
[2019-10-03 16:04] VITALS: BP 146/71
[2019-10-03] MEDS: FLUCONAZOLE (100 MG) 100 MG TABLET PO SCH (16:42)
[2019-10-03] MEDS ORDERED: FLUCONAZOLE IN NS 100 MG in PREMIX 1 EA IV SCH ×2 (18:00)
--- NOTE | 2019-10-03 18:43 | NUR ---
M/S RN CLOSING NOTES PT A/O 2-3, RESPONSIVE TO ALL STIMULI, LITHUANIAN SPEAKING. ASSESSED NO ACUTE RESPIRATORY DISTRESS, SOB IN MINIMAL EXERTION WHEN REPOSITIONING AND AFTER FEEDING, ON O2 AT 3LPM VIA NASAL CANNULA SATING 96%, MAINTAINED ON SEMI FOWLERS POSITION, PRESENCE OF COURSE CRACKLES IN COUGHING. PT ON STRICT ASPIRATION PRECAUTION WAITING FOR VIDEO SWALLOW IN AM. ABD SOFT AND NON DISTENDED WITH ACTIVE BOWEL SOUNDS, LBM 10/03/2019. DENIES PAIN AND DISCOMFORT. SKIN WARM TO TOUCH AND DRY, NO NEW OPEN SKIN BREAKDOWN. PT AFEBRILE ALL DAY. IV SITE AT RIGHT AC #20 AND LEFT UPPER ARM #18 MIDLINE, SITES PATENT IN FLUSHING WITH NO S/SX ON INFILTRATION. ALL CONCERNS ATTENDED. BED LOCKED, LOW, CALL LIGHT WITHIN REACH. ENDORSED PT CARE TO NEXT SHIFT.
--- NOTE | 2019-10-03 18:44 | NUR ---
M/S RN ADDITIONAL NOTES (CLOSING) RIGHT CHEST WALL AND RIGHT FEMORAL TRIPLE LUMEN HD CATH DRESSING DRY AND INTACT. NO S/SX ON INFECTION AROUND THE SKIN AREA. TO MONITOR. ENDORSED TO NEXT SHIFT.
--- NOTE | 2019-10-03 19:35 | NUR ---
MS RN OPENING NOTES PATIENT RECEIVED RESTING IN BED, A/O X 3, LAO SPEAKING. PATIENT ON 2L OF O2 VIA NC, COUGH NOTED BUT BREATHING IS EVEN AND UNLABORED, NO SOB NOTED. NO SIGNS OF ACUTE DISTRESS. NO COMPLAINTS OF PAIN OR DISCOMFORT. ASPIRATION PRECAUTION IN PLACE AND WILL MONITOR. MISSAEL MIDLINE NOTED, RAC #20 HL, RCW AND L FEMORAL HD DESTINEY CATH NOTED. SAFETY PRECAUTIONS IN PLACE WITH BED IN LOWEST POSITION, CALL LIGHT WITHIN REACH, BREAKS ON, AND SIDE RAILS UP X2. WILL CONTINUE TO MONITOR.
[2019-10-03 20:00] VITALS: BP 141/70
[2019-10-04] MEDS: ALBUTEROL HALF STRENGTH 1.25 MG/3 ML VIAL.NEB NEB SCH ×7 (04:05→23:35)
[2019-10-04] MEDS: IPRATROPIUM NEB FS 0.5 MG/2.5 ML AMPUL.NEB NEB SCH ×7 (04:05→23:35)
--- NOTE | 2019-10-04 04:59 | NUR ---
MS RN NOTES PATIENT NOTED WITH O2 SAT AT 86% PUT HEAD OF THE BED UP, INCREASED OXYGEN CALLED RT. RT AT BEDSIDE INCREASED OXYGEN TO 5L AND PROVIDED NASAL SUCTIONING WITH THICK, GREEN PINK RED TINGED SECRETION. O2 SAT ABLE TO INCREASE UP TO 92-94%. WILL CONTINUE TO MONITOR.
[2019-10-04] MEDS: DILTIAZEM HCL 30 MG TABLET PO SCH ×3 (05:10→21:00)
[2019-10-04] MEDS: hydrALAZINE HCL 50 MG TABLET PO SCH ×3 (05:11→21:00)
[2019-10-04] MEDS: BLOOD SUGAR DIAGNOSTIC 1 EACH STRIP IN SCH ×4 (06:44→20:53)
[2019-10-04] MEDS: INSULIN REGULAR, HUMAN 100 UNIT/ML 3 ML VIAL SQ PRN (06:46)
--- NOTE | 2019-10-04 06:52 | NUR ---
M/S RN CLOSING NOTES PT A/O 2-3, RESPONSIVE TO ALL STIMULI, LAO SPEAKING. ASSESSED NO ACUTE RESPIRATORY DISTRESS, SOB IN MINIMAL EXERTION WHEN REPOSITIONING ON O2 AT 5LPM VIA NASAL CANNULA SATING 96%, MAINTAINED ON SEMI FOWLERS POSITION, PRESENCE OF COURSE CRACKLES IN COUGHING. PATIENT NEEDS TO BE SUCTIONED NEEDED, NASALLY. PT ON STRICT ASPIRATION PRECAUTION WAITING FOR VIDEO SWALLOW IN AM. DENIES PAIN AND DISCOMFORT. SKIN WARM TO TOUCH AND DRY, NO NEW OPEN SKIN BREAKDOWN IV SITE AT RIGHT AC #20 AND LEFT UPPER ARM #18 MIDLINE, SITES PATENT IN FLUSHING WITH NO S/SX ON INFILTRATION. RCW AND R FEMORAL HD PERAMINATA NOTED. ALL CONCERNS ATTENDED. BED LOCKED, LOW, CALL LIGHT WITHIN REACH. ENDORSED PT CARE TO NEXT SHIFT.
--- NOTE | 2019-10-04 07:30 | NUR ---
MS RN OPENING NOTE RECEIVED PATIENT IN BED, A/O X2 YAKUT SPEAKING. PATIENT IS VERY CONGESTED, PRODUCTIVE COUGH NOTED, NO SECRETION. RT SUCTIONS PATIENT FREQUENTLY, NASAL SUCTION WAS REQUIRED DURING THE NIGHT BECAUSE THE PATIENT WAS DESATURATING. PATIENT IS PENDING SWALLOW EVAL, OK TO GIVE PO MEDS CEUSHED WITH APPLE SAUCE. MISSAEL MIDLINE, R AC #20 INTACT, PATENT, FLUSHED WELL. NO S/S OF INFECTION IS NOTED. SAFETY MAINTAINED, CALL LIGHT WITHIN REACH, WILL CONTINUE TO MONITOR CLOSELY.
[2019-10-04] MEDS: ACETYLCYSTEINE 10% SOLN 400 MG/4 ML VIAL NEB SCH ×4 (07:39→23:35)
[2019-10-04] MEDS: PANTOPRAZOLE 40 MG TABLET.DR PO SCH (07:56)
[2019-10-04 08:00] VITALS: BP 140/60
[2019-10-04] MEDS: CALCIUM CARB 250MG /VITAMIN D 1 UDTAB PO SCH (08:39)
[2019-10-04] MEDS: BENAZEPRIL HCL 20 MG TABLET PO SCH (08:39)
[2019-10-04] MEDS: HYDROCODONE/APAP 5/325MG 1 EACH TABLET PO PRN (08:40)
[2019-10-04] MEDS: APIXABAN 5 MG TABLET PO SCH ×2 (08:40→17:00)
[2019-10-04] MEDS: FLUCONAZOLE (100 MG) 100 MG TABLET PO SCH (08:41)
[2019-10-04] MEDS: INSULIN GLARGINE, 100 UNIT/ML CARTRIDGE SQ SCH (08:42)
--- NOTE | 2019-10-04 09:00 | NUR ---
DISCUSSED WITH CHARGE NURSE REGARDING LANUS 50 UNITS BEING ORDERED FOR THE PATIENT. WAS THINKING OF HOLDING IT DUE TO PATIENT NOT EATING A LOT IN PREVIOUS DAYS. CHARGE NURSE SAID TO GIVE SCHEDULED LANTUS BECAUSE PATIENT BS WAS 145. WILL MONITOR BS LEVELS CLOSELY AND ENCOURAGE THE PATIENT TO EAT.
--- NOTE | 2019-10-04 13:15 | NUR ---
MS RN NOTE PATIENT JUST CAME BACK FROM A VIDEO SWALLOW EVAL. PATIENT FAILED THE EVALUATION, RECOMMENDED STRICT NPO BY ST. NG TUBE PLACEMENT IS RECOMMENDED FOR THE MEAN TIME. PAGED DR. TRAN, WAITING FOR A CALL BACK. HOLDING ALL PO MEDS UNTIL FOLLOWED UP BY THE DOCTOR. SAFETY MAINTAINED, CALL LIGHT WITHIN REACH, WILL CONTINUE TO MONITOR CLOSELY.
[2019-10-04] MEDS ORDERED: BARIUM SULFATE 148 GM SUSP.RECON PO ONE (13:20)
[2019-10-04] MEDS ORDERED: BARIUM SULFATE 240 ML ORAL.SUSP PO ONE (13:20)
[2019-10-04 14:19] LABS: BASOPHILS # (AUTO) 0.1 /CMM (0.0-0.2); BASOPHILS % (AUTO) 0.7 % (0.0-2.0); EOSINOPHILS % (AUTO) 1.1 % (0.0-6.0); HEMATOCRIT 32 % (33-45); HEMOGLOBIN 10.1 g/dL (11.5-14.8); LYMPHOCYTES # (AUTO) 0.7 /CMM (0.8-4.8); LYMPHOCYTES % (AUTO) 9.7 % (20.0-44.0); MEAN CORPUSCULAR HGB CONC 31 g/dl (31.0-36.0); MEAN CORPUSCULAR VOLUME 85 fL (82-100); MONOCYTES # (AUTO) 0.5 /CMM (0.1-1.30); MONOCYTES % (AUTO) 7.1 % (2.0-12.0); NEUTROPHILS # (AUTO) 6.2 /CMM (1.8-8.9); NEUTROPHILS % (AUTO) 81.4 % (43.0-81.0); PLATELET COUNT (AUTO) 321 /CMM (150-450); RED BLOOD CELL COUNT(AUTO) 3.81 MIL/uL (4.0-5.2); WHITE BLOOD COUNT (AUTO) 7.6 K/uL (4.3-11.0)
[2019-10-04 14:44] LABS: CALCIUM, SERUM 8.6 mg/dL (8.5-10.1); CARBON DIOXIDE 24 mmol/L (21-32); CHLORIDE 103 mmol/L (98-107); CREATININE 1.9 mg/dL (0.6-1.3); MAGNESIUM 2.1 mg/dL (1.8-2.4); POTASSIUM 4.5 mmol/L (3.5-5.1); SODIUM SERUM 136 mmol/L (136-145); UREA NITROGEN, BLOOD 21 mg/dL (7-18)
[2019-10-04 14:46] LABS: GLUCOSE 38 mg/dL (74-106)
[2019-10-04] MEDS: DEXTROSE 50%-WATER 50 ML DISP.SYRIN IV PRN ×4 (14:52→23:36)
[2019-10-04] MEDS: CEFEPIME 2 GM in IV D5W 100 ML IV SCH (14:53)
[2019-10-04 16:00] VITALS: BP 158/66
[2019-10-04] MEDS ORDERED: GLUCERNA 1.2 1,000 ML BOTTLE NG PRN (17:00)
--- NOTE | 2019-10-04 18:30 | NUR ---
ROUNDING NOTES SECOND EPISODE OF PATIENT BS LEVEL DROPPING TO CRITICAL LOW. FIRST TIME IT DROPPED AROUND 1200 TO BS OF 40. DEXTROSE 50 IV PUSH WAS GIVEN, NOTIFIED, BS WAS RECHECKED AND WENT UP TO 130. SECOND EPISODE HAPPENED 30 MIN AGO, BS WAS CRITICALLY LOW AT 23, DEXTROSE WAS PUSHED ONCE AGAIN, BS WENT BACK UP TO 101 30 MIN AFTER. PATIENT IS AWAKE, IN STABLE CONDITION. DR TRAN IS AWARE, SUGGESTED PUTTING PATIENT ON D5 FLUIDS, DR THINKS ITS NOT NECESSARY. ORDERED ACCU CHECK Q4H WITH DEXTROSE IV PUSH WHENEVER NECESSARY. PATIENT IS BEING MONITORED CLOSELY.
--- NOTE | 2019-10-04 19:30 | NUR ---
RN CLOSING NOTED PATIENT IS IN STABLE CONDITION AT THE MOMENT. ENDORSED TO ASSISTANT PROFESSOR OF ENGLISH NURSE REGARDING THE ACCU CHECK BEING Q4H, AND TO MONITOR FOR SYMPTOMS OF HYPOGLYCEMIA CLOSELY. NG TUBE WAS NOT PLACED TODAY, 3 NURSES HAVE TRIED AND IT WAS UNSUCCESSFUL, DR TRAN AWARE, WILL COME TOMORROW AND ATTEMPT TO PUT IT IN. SAFETY MAINTAINED, CALL LIGHT WITHIN REACH, ENDORSED TO ASSISTANT PROFESSOR OF ENGLISH NURSE TO CONTINUE CARE.
--- NOTE | 2019-10-04 19:46 | NUR ---
RN NOTES RECEIVED PATIENT AWAKE ALERT ORIENTED X2-3. NO SIGNS OF ACUTE CARDIAC OR RESPIRATORY DISTRESS NOTED, SAFETY MEASURES IN PLACED, ASPIRATION PRECAUTION EMPHASIZED, CALL LIGHT WITHIN EASY EACH, REPOSITIONED FOR COMFORT, NPO MAINTAINED, IV ACCESS INTACT AND PATENT, WILL CONTINUE TO MONITOR ACCORDINGLY.
[2019-10-04 20:00] VITALS: BP 139/70
[2019-10-04 20:20] VITALS: BP 139/70
--- NOTE | 2019-10-04 20:58 | NUR ---
RN NOTES BLOOD SUGAR 21MG/DL, PROTOCOL INITIATED, ADMINISTERED D50% 50 ML IV GIVEN ORDERED. ROLLED MATERIALS WORKER ANEUDY MADE AWARE, NO NEW ORDER. WILL RE CHECK BLOOD SUGAR. WILL MONITOR ACCORDINGLY.
--- NOTE | 2019-10-04 21:23 | NUR ---
RN NOTES RE CHECK BLOOD SUGAR 112 MG/DL. ASLEEP EASILY AROUSABLE. RESPONSIVE TO TACTILE AND VERBAL STIMULI.
--- NOTE | 2019-10-04 21:32 | NUR ---
RN NOTES APRESOLINE 50 MG/TAB 100 MG TABLETS PO AND CARDIZEM 30 MG/TAB 60MG TABLETS NOT GIVEN. PATIENT ON NPO, DID NOT PASS SWALLOW EVAL IN THE MORNING. WILL MONITOR ACCORDINGLY.
[2019-10-05 00:50] VITALS: BP 139/70
[2019-10-05] MEDS: BLOOD SUGAR DIAGNOSTIC 1 EACH STRIP IN SCH ×6 (01:10→21:03)
[2019-10-05] MEDS: IPRATROPIUM NEB FS 0.5 MG/2.5 ML AMPUL.NEB NEB SCH ×5 (04:21→20:02)
[2019-10-05] MEDS: ALBUTEROL HALF STRENGTH 1.25 MG/3 ML VIAL.NEB NEB SCH ×5 (04:21→20:02)
[2019-10-05] MEDS: DEXTROSE 50%-WATER 50 ML DISP.SYRIN IV PRN ×5 (04:28→21:03)
--- NOTE | 2019-10-05 04:50 | NUR ---
RN NOTES NOTED BLOOD SUGAR 14 MG/DL BLOOD PRESSURE 199/134 HR 104, SATING 97%. RESPONSIVE TO TACTILE AND VERBAL STIMULI. COOK ENCHILADA ANEUDY MADE AWARE, AWAITING FOR NEW ORDERS, PATIENT IS ON NPO, ASPIRATION PRECAUTION EMPHASIZED. WILL CONTINUE TO MONITOR.
[2019-10-05] MEDS: DILTIAZEM HCL 30 MG TABLET PO SCH (05:00)
[2019-10-05] MEDS: hydrALAZINE HCL 50 MG TABLET PO SCH ×3 (05:00→21:43)
--- NOTE | 2019-10-05 06:58 | NUR ---
RN NOTES ALL NEEDS ATTENDED AND MET, SAFETY MEASURES IN PLACE, REPOSITIONED FOR COMFORT. CALL LIGHT WITHIN EASY REACH. LATEST BLOOD SUGAR 72 MG/DL, NPO MAINTAINED, AWAITING FOR FURTHER ORDERS FROM [facility] DOCTORS, ORAL MEDICATIONS NOT GIVEN, PATIENT ON NPO FOR NGT INSERTION, AND PATIENT DID NOT PASS THE SWALLO EVAL. RESTING COMFORTABLY AT THIS TIME, RESPONSIVE TO BOTH TACTILE AND VERBAL STIMULI. WILL ENDORSE TO AM NURSE FOR CONTINUITY OF CARE.
[2019-10-05 07:04] LABS: BASOPHILS % (AUTO) 0.3 % (0.0-2.0); EOSINOPHILS % (AUTO) 1.6 % (0.0-6.0); HEMATOCRIT 33 % (33-45); HEMOGLOBIN 10.2 g/dL (11.5-14.8); LYMPHOCYTES # (AUTO) 0.5 /CMM (0.8-4.8); LYMPHOCYTES % (AUTO) 6.7 % (20.0-44.0); MEAN CORPUSCULAR HGB CONC 31 g/dl (31.0-36.0); MEAN CORPUSCULAR VOLUME 86 fL (82-100); MONOCYTES # (AUTO) 0.5 /CMM (0.1-1.30); MONOCYTES % (AUTO) 7.2 % (2.0-12.0); NEUTROPHILS # (AUTO) 6.1 /CMM (1.8-8.9); NEUTROPHILS % (AUTO) 84.2 % (43.0-81.0); PLATELET COUNT (AUTO) 266 /CMM (150-450); RED BLOOD CELL COUNT(AUTO) 3.82 MIL/uL (4.0-5.2); WHITE BLOOD COUNT (AUTO) 7.2 K/uL (4.3-11.0)
[2019-10-05] MEDS: PANTOPRAZOLE 40 MG TABLET.DR PO SCH (07:30)
[2019-10-05] MEDS: ACETYLCYSTEINE 10% SOLN 400 MG/4 ML VIAL NEB SCH ×2 (07:41→15:17)
[2019-10-05 08:00] VITALS: BP 165/140
--- NOTE | 2019-10-05 08:00 | NUR ---
MS1/RN AM SHIFT OPENING NOTES RECEIVED PT AWAKE IN BED, PT A/O X 2-3 [place] SPEAKING, DENIES SYMPTOMS AT THIS TIME, NO ACUTE CHANGE OF CONDITION. ON 2L O2 VIA N/C SATURATING @ 95%, RESPIRATIONS EVEN & UNLABORED, LUNG SOUNDS DIMINISHED. WITH ON GOING IV INFUSION OF D5NS @ 50CC/HR, MIDLINE PATENT WITH NO S/S OF INFECTION. PT ON NPO STATUS AT THIS TIME. PRIMARY WILL ATTEMPT TO INSERT NGT LATER THIS MORNING. BLOOD GLUCOSE CHECKED, 39, NO S/S OF HYPOGLYCEMIA, WILL COVER WITH D50. CL WITHIN REACHED AND SAFETY MAINTAINED. ON GOING MONITORING.
[2019-10-05] MEDS: FLUCONAZOLE (100 MG) 100 MG TABLET PO SCH (08:20)
[2019-10-05] MEDS: APIXABAN 5 MG TABLET PO SCH ×2 (08:20→18:01)
[2019-10-05] MEDS: CALCIUM CARB 250MG /VITAMIN D 1 UDTAB PO SCH (08:21)
[2019-10-05] MEDS: INSULIN GLARGINE, 100 UNIT/ML CARTRIDGE SQ SCH (08:21)
[2019-10-05 08:27] LABS: CALCIUM, SERUM 8.5 mg/dL (8.5-10.1); CARBON DIOXIDE 22 mmol/L (21-32); CHLORIDE 104 mmol/L (98-107); CREATININE 1.6 mg/dL (0.6-1.3); GLUCOSE 65 mg/dL (74-106); POTASSIUM 4.6 mmol/L (3.5-5.1); SODIUM SERUM 140 mmol/L (136-145); UREA NITROGEN, BLOOD 21 mg/dL (7-18)
--- NOTE | 2019-10-05 09:49 | NUR ---
MS1/RN REPEAT BLOOD GLUCOSE RE-CHECKED BLOOD GLUCOSE, 92. ON GOING MONITORING.
[2019-10-05 11:24] VITALS: BP 150/70
[2019-10-05] MEDS ORDERED: DILTIAZEM HCL CD 240 MG PO SCH (11:30)
[2019-10-05 11:51] VITALS: BP 188/91
[2019-10-05] MEDS ORDERED: LORAZEPAM INJ 2 MG/ML VIAL IV ONE (13:00)
--- NOTE | 2019-10-05 14:35 | NUR ---
MS1/RN NGT - UNSUCCESSFUL PT WAS SEDATED WITH ATIVAN 0.5MG IVP TO AID INSERTION OF NGT STILL UNABLE. DR. TRAN NOTIFIED.
[2019-10-05] MEDS: CEFEPIME 2 GM in IV D5W 100 ML IV SCH (15:36)
[2019-10-05 16:00] VITALS: BP 103/75
--- NOTE | 2019-10-05 16:25 | NUR ---
MS1/DIRECTOR OF STUDENT AID ADJUSTMENTS SPOKE TO DR. TRAN SUGGESTING CHANGING ROUTE FOR PT'S MEDICATION WHILE NG TUBE IS NOT AVAILABLE. RECEIVED TELEPHONE ORDER FOR THE FOLLOWING: CHANGE THE RATE OF D5NS FROM 50CC/HR TO 75CC/HR (MAY INCREASE TO 100CC/HR), HYDRALAZINE 10MG IVP Q6HRS. PRN FOR BP 160/90 AND MORPHINE 0.25MG IVP Q6HRS PRN FOR PAIN. ALSO SPOKE ABOUT RADIOLOGIST ASSISTING IN INSERTING NGT, SPOKE TO DR. DENISE SAID HE WILL PERFORM NGT INSERTION TOMORROW. ORDERED SAID PROCEDURE VIA CHEST X-RAY. CONTACTED DR. LOMBARDI REGARDING PT'S BP MEDICATION, PER DR. LOMBARDI TO HOLD CARDIZEM. ORDERS NOTED AND CARRIED.
[2019-10-05] MEDS ORDERED: IV D5/ 0.9% NACL 1,000 ML IV SCH ×2 (16:30)
[2019-10-05] MEDS ORDERED: IV D5/ 0.9% NACL 1,000 ML IV PRN (17:00)
--- NOTE | 2019-10-05 18:02 | NUR ---
MS1/RN DECREASED BLOOD GLUCOSE BLOOD GLUCOSE CHECKED, 23. GAVE D50. DR. CHELSEA MATT. MONITORING CLOSELY. Addendum: 10/05/19 at 1805 by TAIWO TARIQ RN ADDENDUM: SPOKE TO DR. TRAN. IV FLUID CHANGE TO D10 @ 100CC/HR. ORDER NOTED AND CARRIED. Addendum: 10/05/19 at 1948 by TAIWO TARIQ RN ADDENDUM: REPORTED TO DR. TRAN RESULT OF BLOOD GLUCOSE AFTER D50, 119. CLARIFIED ORDER ON RATE OF D10, WHICH IS @ 50CC/HR.
[2019-10-05] MEDS ORDERED: DEXTROSE 10% IN WATER 250 ML BAG IV PRN (18:30)
[2019-10-05] MEDS ORDERED: DEXTROSE 10% IN WATER 250 ML BAG IV ONE (18:30)
--- NOTE | 2019-10-05 19:48 | NUR ---
MS1/RN AM SHIFT END NOTES ALL NEEDS MET. BLOOD GLUCOSE HAS BEEN VERY SINCE BEGINNING OF THE SHIFT COVERING D50 PER SLIDING SCALE. PT ON D10 @ 50CC/HR, NO NGT, WILL ATTEMPT TO INSERT AGAIN TOMORROW WITH RADIOLOGIST. PT ENDORSED TO PM NURSE TO CONTINUE CARE. CL WITHIN REACHED AND SAFETY MAINTAINED.
--- NOTE | 2019-10-05 19:55 | NUR ---
MS RN OPENING NOTES NOTES RECEIVED PATIENT IN BED. ANXIOUS AND CONFUSED. O2 NC WAS RECONNECTED BACK @3L. O2 WAS LOW BUT RAISED BACK UP TO 95%. BLOOD GLUCOSE HAS BEEN VARY DURING DAY SHIFT. PATIENT IS ON D10 @ 50CC/HR, ON MISSAEL MIDLINE . NO S/S OF INFILTRATION NOTED AT IV SITE AT THIS TIME. PATIENT BED IS IN LOW/LOCKED POSITION CALL LIGHT WITHIN REACH WILL CONTINUE TO MONITOR.
[2019-10-05 20:00] VITALS: BP 114/85
--- NOTE | 2019-10-05 21:10 | NUR ---
RN NOTE, PATIENT BS 42 AT 21OO. CHARGE NURSE NOTIFIED. DEXTROSE 50 WAS GIVEN IVP PER SLIDING SCALE. WILL CONTINUE TO MONITOR Addendum: 10/05/19 at 2133 by ROBERT LOUIS RN RECHECKED BS 84 AT 2125. WILL CONTINUE TO MONITOR
[2019-10-06] MEDS: ACETYLCYSTEINE 10% SOLN 400 MG/4 ML VIAL NEB SCH ×4 (00:15→23:38)
[2019-10-06] MEDS: ALBUTEROL HALF STRENGTH 1.25 MG/3 ML VIAL.NEB NEB SCH ×8 (00:15→23:38)
[2019-10-06] MEDS: IPRATROPIUM NEB FS 0.5 MG/2.5 ML AMPUL.NEB NEB SCH ×8 (00:15→23:38)
[2019-10-06] MEDS: BLOOD SUGAR DIAGNOSTIC 1 EACH STRIP IN SCH ×6 (00:34→21:18)
[2019-10-06] MEDS: DEXTROSE 50%-WATER 50 ML DISP.SYRIN IV PRN ×2 (00:35→05:08)
--- NOTE | 2019-10-06 00:42 | NUR ---
RN NOTE: PT'S BS 43 AT 0034. CHARGE NURSE MADE AWARE. DEXTROSE 50 WAS GIVEN PER SLIDING SCALE. WILL CONTINUE TO MONITOR. Addendum: 10/06/19 at 0101 by MARCELA RANKIN RN RECHECKED BS AT 0049, BS 146. WILL CONTINUE TO MONITOR.
[2019-10-06 04:00] VITALS: BP 146/102
[2019-10-06] MEDS: hydrALAZINE HCL 50 MG TABLET PO SCH ×3 (05:00→20:59)
--- NOTE | 2019-10-06 05:09 | NUR ---
RN NOTES: PT BLOOD GLUCOSE 46. CHARGE NURSE MADE AWARE. DEXTROSE 50 GIVEN IVP PER SLIDING SCALE. WILL CONTINUE TO MONITOR. Addendum: 10/06/19 at 0636 by MARCELA RANKIN RN RECHECKED BS AT 0538 BS [id number]. CHARGE NURSE MADE AWARE. WILL CONTINUE TO MONITOR.
[2019-10-06 06:18] LABS: BASOPHILS # (AUTO) 0.1 /CMM (0.0-0.2); BASOPHILS % (AUTO) 0.8 % (0.0-2.0); EOSINOPHILS % (AUTO) 2.4 % (0.0-6.0); HEMATOCRIT 28 % (33-45); HEMOGLOBIN 8.9 g/dL (11.5-14.8); LYMPHOCYTES # (AUTO) 0.7 /CMM (0.8-4.8); LYMPHOCYTES % (AUTO) 9.1 % (20.0-44.0); MEAN CORPUSCULAR HGB CONC 32 g/dl (31.0-36.0); MEAN CORPUSCULAR VOLUME 86 fL (82-100); MONOCYTES # (AUTO) 0.5 /CMM (0.1-1.30); MONOCYTES % (AUTO) 6.9 % (2.0-12.0); NEUTROPHILS % (AUTO) 80.8 % (43.0-81.0); PLATELET COUNT (AUTO) 250 /CMM (150-450); RED BLOOD CELL COUNT(AUTO) 3.25 MIL/uL (4.0-5.2); WHITE BLOOD COUNT (AUTO) 7.5 K/uL (4.3-11.0)
--- NOTE | 2019-10-06 06:47 | NUR ---
RN CLOSING NOTES: PT RESTING IN BED A&O X2, AFGHAN SPEAKING. ON 3L/MIN NC TOLERATING WELL. PT'S BS FLUCTUATED THROUGHOUT SHIFT. D50 GIVEN PER SLIDING SCALE, CHARGE NURSE AWARE. HAS IV SITE ON RIGHT AC#20 WITH D10 RUNNING AT 50ML/HR. PT PULLED OUT LEFT ARM MIDLINE CHARGE NURSE AWARE. HAS NG TUBE WITH MILD SEDATION SCHEDULED FOR TODAY. BED IN LOWEST AND LOCKED POSITION, SIDE RAILS UP X2 AND CALL LIGHT WITHIN REACH. WILL ENDORSE TO AM NURSE FOR LEANDER.
[2019-10-06 07:11] LABS: ALANINE AMINOTRANSFERASE 9 U/L (12-78); ALBUMIN 2.1 g/dL (3.4-5.0); ALKALINE PHOSPHATASE 56 U/L (46-116); ASPARTATE AMINOTRANSFERASE 23 U/L (15-37); BILIRUBIN,TOTAL 0.4 mg/dL (0.2-1.0); CALCIUM, SERUM 7.9 mg/dL (8.5-10.1); CARBON DIOXIDE 23 mmol/L (21-32); CHLORIDE 103 mmol/L (98-107); CREATININE 1.4 mg/dL (0.6-1.3); GLUCOSE 234 mg/dL (74-106); MAGNESIUM 1.8 mg/dL (1.8-2.4); PHOSPHORUS 3.1 mg/dL (2.5-4.9); SODIUM SERUM 136 mmol/L (136-145); TOTAL PROTEIN, SERUM 5.4 g/dL (6.4-8.2); UREA NITROGEN, BLOOD 15 mg/dL (7-18)
[2019-10-06] MEDS: PANTOPRAZOLE 40 MG TABLET.DR PO SCH (07:30)
--- NOTE | 2019-10-06 07:45 | NUR ---
RN OPENING NOTES PT RESTING IN BED A/O X1. VERBALLY RESPONSIVE , MEXICAN SPEAKING ONLY . ON 3L/MIN NC TOLERATING WELL @97%. HAS IV SITE ON RIGHT AC#20 WITH D10 RUNNING AT 50ML/HR. HAS NG TUBE WITH MILD SEDATION SCHEDULED FOR TODAY. BED IN LOWEST AND LOCKED POSITION, SIDE RAILS UP X2 AND CALL LIGHT WITHIN REACH. WILL CONTINUE TO MONITOR .
[2019-10-06 08:00] VITALS: BP 157/80
[2019-10-06] MEDS: CALCIUM CARB 250MG /VITAMIN D 1 UDTAB PO SCH (08:12)
[2019-10-06] MEDS: APIXABAN 5 MG TABLET PO SCH (08:12)
[2019-10-06] MEDS: FLUCONAZOLE (100 MG) 100 MG TABLET PO SCH (08:12)
[2019-10-06] MEDS: INSULIN GLARGINE, 100 UNIT/ML CARTRIDGE SQ SCH (09:00)
--- NOTE | 2019-10-06 10:09 | NUR ---
RN NOTES NOTIFIED DR TRAN REGARDING THE TIME OF THE NG TUBE PLACEMENT TO BE DONE BETWEEN -. MD ORDERED VERSED 0.5MG PRIOR THE PROCEDURE AND 0.5MG NEEDED DURING THE PROCEDURE TOTAL OF 1 MG.
--- NOTE | 2019-10-06 11:03 | NUR ---
RN NOTES PATIENT PICKED UP AND SENT TO RADIOLOGY DEPARTMENT FOR NG-TUBE PLACEMENT
[2019-10-06 12:00] VITALS: BP 157/74
[2019-10-06] MEDS ORDERED: MIDAZOLAM HCL 2 MG/2ML VIAL IV ONE (12:00)
--- NOTE | 2019-10-06 12:37 | NUR ---
RN NOTES PATIENT CAME BACK FROM RADIOLOGY, PROCEDURE WAS UNSUCCESSFUL.
[2019-10-06] MEDS ORDERED: BUMETANIDE INJ 3 MG in IV NS 0.9% 48 ML IV ONE (13:00)
[2019-10-06] MEDS: DILTIAZEM HCL 30 MG TABLET PO SCH ×2 (13:00→21:00)
--- NOTE | 2019-10-06 13:02 | NUR ---
RN NOTES DR TRAN MADE AWARE ABOUT THE STATUS OF THE PATIENT THAT THE PLACEMENT FOR NG TUBE WAS NOT SUCCESSFUL.
[2019-10-06] MEDS ORDERED: DIGOXIN INJ 0.5 MG/2 ML AMPUL IV ONE (13:30)
[2019-10-06 16:00] VITALS: BP 184/68
[2019-10-06] MEDS: IV 10% DEXTROSE 1,000 ML IV PRN (16:52)
--- NOTE | 2019-10-06 19:10 | NUR ---
RN OPENING NOTE RECEIVED PATIENT IN BED RESTING WITH HOB ELEVATED. A&O X1. ABLE TO MAKE NEEDS KNOWN IN [place]. ON O2 3L VIA NC. BREATHING EVEN AND NON LABORED. NO SOB NOTED AT THIS TIME. ON 10% DEXTROSE IV HYDRATION. IN NO APPARENT DISTRESS NOTED AT THIS TIME. BED IS LOWERED AND LOCKED FOR SAFETY. CALL LIGHT IS WITHIN REACH. WILL CONTINUE TO MONITOR.
--- NOTE | 2019-10-06 19:29 | NUR ---
RN CLOSING NOTES PATIENT IN BED, AWAKE. VERBALLY RESPONSIVE, KITTITIAN SPEAKING.IN NO APPARENT ACUTE DISTRESS NOTED. ON NASAL CANULA @ 3L SATURATING @97%. IV ACCESS ON RFA #20, R AC #20,AND L WRIST , INTACT PATENT AND FLUSHED WELL. NO SIGNS OF INFILTRATION. KEPT CLEAN AND DRY. SAFETY MEASURES OBSERVED. BED IN LOWEST POSITIONED AND LOCKED. CALL LIGHT WITHIN REACH. ENDORSED TO PM RN FOR LEANDER.
[2019-10-06 20:00] VITALS: BP 108/75
[2019-10-06] MEDS: MORPHINE SULFATE INJ 2 MG/ML DISP.SYRIN IVP PRN (23:06)
[2019-10-07] MEDS: hydrALAZINE HCL IV 20 MG VIAL IV PRN ×2 (00:58→06:33)
[2019-10-07] MEDS: BLOOD SUGAR DIAGNOSTIC 1 EACH STRIP IN SCH ×6 (01:43→21:19)
[2019-10-07 04:00] VITALS: BP 173/81
[2019-10-07] MEDS: IPRATROPIUM NEB FS 0.5 MG/2.5 ML AMPUL.NEB NEB SCH ×6 (04:02→22:46)
[2019-10-07] MEDS: ALBUTEROL HALF STRENGTH 1.25 MG/3 ML VIAL.NEB NEB SCH ×6 (04:02→22:46)
[2019-10-07] MEDS: DILTIAZEM HCL 30 MG TABLET PO SCH ×3 (05:00→21:00)
[2019-10-07] MEDS: hydrALAZINE HCL 50 MG TABLET PO SCH ×3 (05:00→21:00)
--- NOTE | 2019-10-07 07:02 | NUR ---
RN CLOSING NOTE PATIENT IS IN BED RESTING WITH HOB ELEVATED. A&O X1. ABLE TO MAKE NEEDS KNOWN IN [place]. ON O2 3L VIA NC. PATIENT IS KEPT NPO. HYPERTENSIVE MED GIVEN IV ORDERED AND TOLERATED WELL. PATIENT IS KEPT CLEAN, DRY, AND COMFORTABLE. TURNED AND REPOSITIONED Q2HRS. IN NO APPARENT DISTRESS NOTED AT THIS TIME. CALL LIGHT IS WITHIN REACH. WILL ENDORSE TO AM SHIFT RN FOR CONTINUATION OF CARE.
--- NOTE | 2019-10-07 07:15 | NUR ---
RN OPENING NOTE: RECEIVED PATIENT IN BED. ASLEEP, EASILY AROUSED. ALERT AND ORIENTED X 1. BREATHING EVEN AND UNLABORED ON CONT. O2 VIA NC @ 3LPM. SHOWS NO SIGNS OF ACUTE RESPIRATORY DISTRESS AND NO SOB NOTED. IV SITES CLEAN, DRY AND INTACT. IV INFUSION OF D10 @ 50MLS/HR BEING TOLERATED WELL. SHOWS NO SIGNS OF INFILTRATION, NO REDNESS. NO PAIN NOTED. TELE MONITORING SHOWING UNCONTROLLED A. FIB AND MD IS AWARE. SAFETY PRECAUTIONS IN PLACE. CALL LIGHT IN REACH. BED IN LOWEST POSITION, LOCKED AND AT SEMI MORROW'S POSITION. SIDE RAILS UP X3. WILL CONTINUE TO MONITOR.
[2019-10-07] MEDS: ACETYLCYSTEINE 10% SOLN 400 MG/4 ML VIAL NEB SCH ×3 (07:44→22:46)
[2019-10-07 07:51] LABS: BASOPHILS # (AUTO) 0.1 /CMM (0.0-0.2); EOSINOPHILS % (AUTO) 3.8 % (0.0-6.0); HEMATOCRIT 34 % (33-45); HEMOGLOBIN 10.6 g/dL (11.5-14.8); LYMPHOCYTES # (AUTO) 0.8 /CMM (0.8-4.8); MEAN CORPUSCULAR HGB CONC 32 g/dl (31.0-36.0); MEAN CORPUSCULAR VOLUME 85 fL (82-100); MONOCYTES # (AUTO) 0.6 /CMM (0.1-1.30); MONOCYTES % (AUTO) 9.3 % (2.0-12.0); NEUTROPHILS # (AUTO) 4.7 /CMM (1.8-8.9); NEUTROPHILS % (AUTO) 73.9 % (43.0-81.0); PLATELET COUNT (AUTO) 308 /CMM (150-450); RED BLOOD CELL COUNT(AUTO) 3.96 MIL/uL (4.0-5.2); WHITE BLOOD COUNT (AUTO) 6.4 K/uL (4.3-11.0)
[2019-10-07 08:00] VITALS: BP 118/72
[2019-10-07 08:04] LABS: CALCIUM, SERUM 7.9 mg/dL (8.5-10.1); CREATININE 1.2 mg/dL (0.6-1.3); POTASSIUM 3.9 mmol/L (3.5-5.1)
[2019-10-07] MEDS: FLUCONAZOLE (100 MG) 100 MG TABLET PO SCH (09:00)
[2019-10-07] MEDS: PANTOPRAZOLE 40 MG TABLET.DR PO SCH (09:00)
[2019-10-07] MEDS: CALCIUM CARB 250MG /VITAMIN D 1 UDTAB PO SCH (09:00)
[2019-10-07] MEDS: INSULIN GLARGINE, 100 UNIT/ML CARTRIDGE SQ SCH (09:40)
[2019-10-07] MEDS: INSULIN REGULAR, HUMAN 100 UNIT/ML 3 ML VIAL SQ PRN ×3 (09:45→21:19)
[2019-10-07] MEDS ORDERED: BUMETANIDE INJ 3 MG in IV NS 0.9% 48 ML IV ONE (11:00)
--- NOTE | 2019-10-07 11:00 | NUR ---
RN NOTE: DR. VIVEROS CALLED AND INFORMED RN THAT HE WILL BE MAKING ROUNDS TO SEE THE PATIENT FOR POSSIBLE PEG TUBE PLACEMENT TODAY.
--- NOTE | 2019-10-07 12:00 | NUR ---
RN NOTE: DR. TRAN MADE AWARE OF DR. VIVEROS'S PLAN FOR PEG TUBE PLACEMENT. AND INFORMED THAT PATIENT IS DUE FOR SWALLOW EVAL TOMORROW AND AFTERWARDS WOULD BE THE PEG TUBE PLACEMENT. FAMILY IS AWARE OF DR. TRAN'S PLAN. DR. VIVEROS INFORMED OF PATIENT'S SWALLOW EVAL TOMORROW AND PLAN OF DR. TRAN. ACKNOWLEDGED INFORMATION.
[2019-10-07] MEDS: ENOXAPARIN SODIUM 60 MG/0.6 ML DISP.SYRIN SQ SCH (12:43)
[2019-10-07 16:00] VITALS: BP 148/87
[2019-10-07 16:02] VITALS: BP 188/83
[2019-10-07] MEDS: DEXTROSE 50%-WATER 50 ML DISP.SYRIN IV PRN ×2 (16:44→20:33)
--- NOTE | 2019-10-07 18:30 | NUR ---
RN NOTE: PATIENT'S BLOOD SUGAR 32 AND DEXTROSE 50% IN 50MLS GIVEN TO PATIENT PER PROTOCOL. MD MADE AWARE AND BS AFTER RE ASSESSMENT IS 146.
--- NOTE | 2019-10-07 19:05 | NUR ---
RN CLOSING NOTE: PATIENT STILL IN BED. ASLEEP, EASILY AROUSED. ALERT AND ORIENTED X 1-2. NICARAGUAN-SPEAKING. BREATHING EVEN AND UNLABORED ON CONT. O2 VIA NC @ 3LPM. SHOWS NO SIGNS OF ACUTE RESPIRATORY DISTRESS AND NO SOB NOTED. IV SITES CLEAN, DRY AND INTACT. IV INFUSION OF D10 @ 50MLS/HR BEING TOLERATED WELL. SHOWS NO SIGNS OF INFILTRATION, NO REDNESS. NO PAIN NOTED. SAFETY PRECAUTIONS IN PLACE. CALL LIGHT IN REACH. BED IN LOWEST POSITION, LOCKED AND AT SEMI MORROW'S POSITION. SIDE RAILS UP X3. ENDORSED TO ONCOMING SHIFT FOR LEANDER.
[2019-10-07] MEDS: IV 10% DEXTROSE 1,000 ML IV PRN (19:10)
--- NOTE | 2019-10-07 19:20 | NUR ---
RN OPENING NOTE: RECEIVED PATIENT IN BED. ASLEEP, EASILY AROUSED. ALERT AND ORIENTED X 1. BREATHING EVEN AND UNLABORED ON CONT. O2 VIA NC @ 3LPM. SHOWS NO SIGNS OF ACUTE RESPIRATORY DISTRESS AND NO SOB NOTED. IV SITES CLEAN, DRY AND INTACT. IV INFUSION OF D10 @ 50MLS/HR BEING TOLERATED WELL. SHOWS NO SIGNS OF INFILTRATION, NO REDNESS. NO PAIN NOTED. TELE MONITORING SHOWING UNCONTROLLED A. FIB AND MD IS AWARE. SAFETY PRECAUTIONS IN PLACE. CALL LIGHT IN REACH. BED IN LOWEST POSITION, LOCKED AND AT SEMI MORROW'S POSITION. SIDE RAILS UP X3. WILL CONTINUE TO MONITOR. Addendum: 10/07/19 at 2025 by ANABELA CHOU RN WRONG DOCUMENTATION
--- NOTE | 2019-10-07 19:43 | NUR ---
RECEIVE PT IN BED A/O X 1 VIETNAMESE SPEAKING STABLE SAFETY MEASURES IN PLACE. WILL CONTINUE TO MONTIOR
[2019-10-07 20:00] VITALS: BP 158/75
[2019-10-07] MEDS: MORPHINE SULFATE INJ 2 MG/ML DISP.SYRIN IVP PRN (21:01)
--- NOTE | 2019-10-07 21:12 | NUR ---
RN REPEAT BLOOD SUGAR, PROCEDURE ERROR. SPECIMEN CONTAMINATED WITH IV FLUID.
[2019-10-08] MEDS: BLOOD SUGAR DIAGNOSTIC 1 EACH STRIP IN SCH ×6 (01:13→20:59)
[2019-10-08] MEDS: DEXTROSE 50%-WATER 50 ML DISP.SYRIN IV PRN ×5 (01:13→21:20)
[2019-10-08] MEDS: INSULIN REGULAR, HUMAN 100 UNIT/ML 3 ML VIAL SQ PRN ×2 (01:14→05:20)
[2019-10-08] MEDS: ALBUTEROL HALF STRENGTH 1.25 MG/3 ML VIAL.NEB NEB SCH ×6 (02:55→23:52)
[2019-10-08] MEDS: IPRATROPIUM NEB FS 0.5 MG/2.5 ML AMPUL.NEB NEB SCH ×7 (02:55→23:52)
[2019-10-08 04:30] VITALS: BP 156/74
[2019-10-08] MEDS: DILTIAZEM HCL 30 MG TABLET PO SCH ×3 (05:00→21:00)
[2019-10-08] MEDS: hydrALAZINE HCL 50 MG TABLET PO SCH ×3 (05:00→21:00)
--- NOTE | 2019-10-08 06:33 | NUR ---
PT SLEPT WELL, NEEDS ATTENDED AND ANTICIPATED, MAINTAINS STRICT NPO. KEPT CLEAN, DRY AND COMFORTABLE AT ALL TIMES. AM CARE RENDERED. NO APPARENT DISTRESS, PT STABLE. OFFLOAD HEELS AND ELBOWS AT ALL TIMES. REPOSITION EVERY 2 HOURS, SAFETY MEASURES IN PLACE. WILL ENDORSE TO NEXT SHIFT POC.
--- NOTE | 2019-10-08 07:10 | NUR ---
RN OPENING NOTES PT IS ASLEEP IN BED WITH HOB ELEVATED. PT HAS NC ON RUNNING CURRENTLY 3L O2. NO OBVIOUS SIGNS OF DISTRESS NOTED AT THIS APPARENT TIME. REPORT RECEIVED FROM DECISION ANALYST RN. WILL CONTINUE TO MONITOR.
[2019-10-08 07:20] LABS: EOSINOPHILS % (AUTO) 3.6 % (0.0-6.0); HEMATOCRIT 35 % (33-45); HEMOGLOBIN 11.2 g/dL (11.5-14.8); LYMPHOCYTES # (AUTO) 0.9 /CMM (0.8-4.8); LYMPHOCYTES % (AUTO) 18.3 % (20.0-44.0); MEAN CORPUSCULAR HGB CONC 32 g/dl (31.0-36.0); MEAN CORPUSCULAR VOLUME 84 fL (82-100); MONOCYTES # (AUTO) 0.5 /CMM (0.1-1.30); MONOCYTES % (AUTO) 10.2 % (2.0-12.0); NEUTROPHILS # (AUTO) 3.3 /CMM (1.8-8.9); NEUTROPHILS % (AUTO) 66.9 % (43.0-81.0); PLATELET COUNT (AUTO) 295 /CMM (150-450); RED BLOOD CELL COUNT(AUTO) 4.16 MIL/uL (4.0-5.2); WHITE BLOOD COUNT (AUTO) 4.9 K/uL (4.3-11.0)
[2019-10-08] MEDS: ACETYLCYSTEINE 10% SOLN 400 MG/4 ML VIAL NEB SCH ×3 (07:20→23:52)
[2019-10-08] MEDS: PANTOPRAZOLE 40 MG TABLET.DR PO SCH (07:30)
[2019-10-08 07:44] LABS: CALCIUM, SERUM 7.7 mg/dL (8.5-10.1); CREATININE 1.2 mg/dL (0.6-1.3); POTASSIUM 3.9 mmol/L (3.5-5.1)
[2019-10-08 08:00] VITALS: BP 160/93
[2019-10-08 08:20] VITALS: BP 160/93
[2019-10-08] MEDS: CALCIUM CARB 250MG /VITAMIN D 1 UDTAB PO SCH (08:51)
[2019-10-08] MEDS: FLUCONAZOLE (100 MG) 100 MG TABLET PO SCH (08:51)
[2019-10-08] MEDS: INSULIN GLARGINE, 100 UNIT/ML CARTRIDGE SQ SCH (09:00)
[2019-10-08] MEDS: ENOXAPARIN SODIUM 60 MG/0.6 ML DISP.SYRIN SQ SCH (09:00)
[2019-10-08] MEDS: METOLAZONE 2.5 MG TABLET PO SCH (09:30)
[2019-10-08] MEDS ORDERED: BUMETANIDE INJ 4 MG in IV NS 0.9% 24 ML IV ONE (10:00)
--- NOTE | 2019-10-08 11:54 | NUR ---
Pt refusing to allow swallow eval states she wants her family here. Multiple attempts to reach family made with no success, unable to leave voicemail. Will follow up at a later time when pt is more compliant.
[2019-10-08 16:00] VITALS: BP 143/79
--- NOTE | 2019-10-08 18:33 | NUR ---
Per Dr. Tatiana sotomayor for pt blood sugar to go into 200's, he does not want insulin to be given until pt can get stable nutrition.
--- NOTE | 2019-10-08 19:28 | NUR ---
RN CLOSING NOTES PT IS ASLEEP IN BED WITH HOB ELEVATED. PT HAS NC ON RUNNING CURRENTLY 3L O2. NO OBVIOUS SIGNS OF DISTRESS NOTED AT THIS APPARENT TIME. REPORT GIVEN TO DECAL TRANSFERRER RN FOR LEANDER.
[2019-10-08] MEDS: IV 10% DEXTROSE 1,000 ML IV PRN (19:42)
[2019-10-08 20:00] VITALS: BP 133/83
[2019-10-08] MEDS: MORPHINE SULFATE INJ 2 MG/ML DISP.SYRIN IVP PRN (21:47)
--- NOTE | 2019-10-08 23:25 | NUR ---
rn notes received patient in bed with no distress noted. breathing even and unlabored. on 3L O2 tolerating well. alert and orientedx 2-3. able to verbalize needs. paraguayan speaking. patient was very agitated and restless. refusing all medications and started to pull all her iv lines at 2030. also pulled out all tubings attached to her body. and scratching and kicking staffs wrist restraint applied. morphine administered. reinserted piv to left forearm, procedure well tolerated. good back flow noted. checked blood sugar, 40mg/dl. administred dextrose 50% and rechecked at 2150, bs still low at 58 mg/dl. checked blood sugar again at 2300 result was 88mg/dl, blood sugar trending up. on d10 at 100% tolerating well. kept clean and dry. will continue to monitor.
[2019-10-09] VITALS (35 sets, daily range): BP systolic 84–177; BP diastolic 36–99
[2019-10-09] MEDS: BLOOD SUGAR DIAGNOSTIC 1 EACH STRIP IN SCH ×6 (01:01→22:05)
[2019-10-09] MEDS: ALBUTEROL HALF STRENGTH 1.25 MG/3 ML VIAL.NEB NEB SCH ×6 (03:51→23:37)
[2019-10-09] MEDS: IPRATROPIUM NEB FS 0.5 MG/2.5 ML AMPUL.NEB NEB SCH ×6 (03:51→23:37)
[2019-10-09] MEDS: DILTIAZEM HCL 30 MG TABLET PO SCH ×3 (05:00→21:57)
[2019-10-09] MEDS: hydrALAZINE HCL 50 MG TABLET PO SCH ×3 (05:00→21:00)
--- NOTE | 2019-10-09 06:51 | NUR ---
RN NOTES AFTER WAKING UP FROM SLEEP, PATIENT REQUESTED STAFF IF WRIST RESTRAINT COULD BE REMOVED. STAFF REINFORSED THE NEED FOR ALL TUBINGS AND SHOULD NOT BE PULLED OUT. PATIENT VERBALIZE UNDERSTANDING. REMOVED RESTRAINT FOR TRIAL. PATIENT WAS COMPLIANT AND DID NOT REMOVED OR TOUCHED ANY TUBINGS. WILL ENDORSED TO AM SHIFT FOR CONTINUITY OF CARE.
--- NOTE | 2019-10-09 07:15 | NUR ---
CLOSED CIRCUIT SCREEN WATCHER OPENING NOTE RECEIVED BEDSIDE REPORT. PT AWAKE IN BED, ALERT AND ORIENTED X 1, ON 02 VIA NC 3L/MIN, SATURATING WELL, RESPIRATIONS EVEN AND UNLABORED, NO SIGNS OF RESPIRATORY DISTRESS NOTED. SINUS RHYTHM ON PATIENT FINANCIAL ADVOCATE, IV SITE ON LEFT FOREARM G22 INTACT, PATENT, D10 INFUSING AT 100CC/HR, NO SIGNS OF INFILTRATION NOTED. BED IN LOW POSITION, LOCKED, CALL LIGHT WITHIN REACH.
[2019-10-09] MEDS: PANTOPRAZOLE 40 MG TABLET.DR PO SCH (07:30)
[2019-10-09 07:34] LABS: BASOPHILS % (AUTO) 0.5 % (0.0-2.0); EOSINOPHILS % (AUTO) 1.5 % (0.0-6.0); HEMATOCRIT 34 % (33-45); HEMOGLOBIN 11.3 g/dL (11.5-14.8); LYMPHOCYTES # (AUTO) 0.9 /CMM (0.8-4.8); LYMPHOCYTES % (AUTO) 13.1 % (20.0-44.0); MEAN CORPUSCULAR HGB CONC 33 g/dl (31.0-36.0); MEAN CORPUSCULAR VOLUME 84 fL (82-100); MONOCYTES # (AUTO) 0.4 /CMM (0.1-1.30); MONOCYTES % (AUTO) 6.2 % (2.0-12.0); NEUTROPHILS # (AUTO) 5.6 /CMM (1.8-8.9); NEUTROPHILS % (AUTO) 78.7 % (43.0-81.0); PLATELET COUNT (AUTO) 352 /CMM (150-450); WHITE BLOOD COUNT (AUTO) 7.2 K/uL (4.3-11.0)
[2019-10-09 07:49] LABS: CALCIUM, SERUM 7.9 mg/dL (8.5-10.1); CREATININE 1.2 mg/dL (0.6-1.3); POTASSIUM 3.2 mmol/L (3.5-5.1)
[2019-10-09] MEDS: ACETYLCYSTEINE 10% SOLN 400 MG/4 ML VIAL NEB SCH ×3 (08:07→23:37)
[2019-10-09] MEDS: CALCIUM CARB 250MG /VITAMIN D 1 UDTAB PO SCH (08:26)
[2019-10-09] MEDS: FLUCONAZOLE (100 MG) 100 MG TABLET PO SCH (08:26)
[2019-10-09] MEDS: METOLAZONE 2.5 MG TABLET PO SCH (08:26)
[2019-10-09] MEDS: ENOXAPARIN SODIUM 60 MG/0.6 ML DISP.SYRIN SQ SCH ×2 (08:55→09:00)
--- NOTE | 2019-10-09 09:21 | NUR ---
OBTAINED ORDER FROM DR TRAN FOR BILATERAL SOFT WRIST RESTRAINTS. PT TRYING TO PULL OUT LINES, HITTING/BITING STAFF.
[2019-10-09] MEDS: POTASSIUM CL. PREMIX PERIPHER. 50 ML IV SCH ×5 (09:28→23:29)
[2019-10-09] MEDS: hydrALAZINE HCL IV 20 MG VIAL IV PRN (12:19)
--- NOTE | 2019-10-09 13:00 | NUR ---
CONSENT OBTAINED AND SIGNED BY DAUGHTER
[2019-10-09] MEDS ORDERED: NOREPINEPHRINE 8 MG in IV D5W 500 ML IV PRN (15:00)
--- NOTE | 2019-10-09 15:00 | NUR ---
RN INITIAL NOTES RECEIVED PT FROM OR, STATUS POST CODE BLUE. PT INTUBATED, ON VENT. NO RESPIRATORY DISTRESS NOTED. CONNECTED TO MONITOR. PT ON LEVOPHED AT 2MCG/MIN. A.LINE IN PLACE. WILL CLOSELY MONITOR BP. MENDOZA CATH INSERTED. DR TINAJERO (ANESTHESIOLOGIST) AND DR VIVEROS AT BEDSIDE. DAUGHTER AWARE OF PT'S CURRENT STATUS. DR TRAN NOTIFIED OF PT'S CONDITION. ORDERED LABS, CXR, ABG AND EKG. WILL CLOSELY MONITOR
--- NOTE | 2019-10-09 15:40 | NUR ---
EDITOR MANAGING DIRECTOR: got report from ReginaldoRN, , anesthesiologist are in unit, spoke with pt.family, pt.is s/p code blue/asystole after GT placement, ETT 7.0/18, AC 14/400/FiO2 100% peep 0, O2sat. over 94% now, no SOB, no distress, waiting ABG, Afib HR 89-126, on Levophed gtt 1 mcg/m via PIVL/blood return +, SBP over 100/ Karen monitoring, neuro: no arms/legs activity now, very sluggish pupils reaction, slightly grimacing with deep pain stimuli, on wrists restraints, will start IV: D10, waiting CBC, BMP results
[2019-10-09] MEDS: IV 10% DEXTROSE 1,000 ML IV PRN (15:53)
[2019-10-09 15:59] LABS: ABG BASE EXCESS 3.6 mmol/L; ABG OXYGEN SATURATION 96.5 % (92.0-98.5); ABG PH 7.519 (7.350-7.450); ABG PO2 91.3 mmHg (75.0-100.0); AaDO2 588.7 mmHg; COHb 0.1 % (0.5-1.5); MetHb 0.5 % (0.0-1.5); O2Hb 95.9 % (94.0-97.0); PEEP,BG 0 cm H2O; SITE, ABG A-Line; VT, ABG 400 mL
--- NOTE | 2019-10-09 16:05 | NUR ---
STAINED GLASS ARTIST: T 97.1, warming measures+, covered with warm blankets, EKG: Afib, controlled on monitor, ABG: no critical values, pH 7.51, FiO2 100%/RT is aware, was in unit/updated/spoke with pt.family
--- NOTE | 2019-10-09 16:30 | NUR ---
FISHING LINE WINDING MACHINE OPERATOR: got call from radiology dep., KUB result: free air into abdomen, sent message for , SBP Mena 110-115, controlled Afib
[2019-10-09 16:34] LABS: BASOPHILS % (AUTO) 0.1 % (0.0-2.0); EOSINOPHILS % (AUTO) 1.1 % (0.0-6.0); HEMATOCRIT 35 % (33-45); HEMOGLOBIN 10.9 g/dL (11.5-14.8); LYMPHOCYTES # (AUTO) 0.6 /CMM (0.8-4.8); LYMPHOCYTES % (AUTO) 5.5 % (20.0-44.0); MEAN CORPUSCULAR HGB CONC 32 g/dl (31.0-36.0); MEAN CORPUSCULAR VOLUME 85 fL (82-100); MONOCYTES # (AUTO) 0.2 /CMM (0.1-1.30); MONOCYTES % (AUTO) 2.3 % (2.0-12.0); NEUTROPHILS # (AUTO) 9.4 /CMM (1.8-8.9); PLATELET COUNT (AUTO) 278 /CMM (150-450); RED BLOOD CELL COUNT(AUTO) 4.08 MIL/uL (4.0-5.2); WHITE BLOOD COUNT (AUTO) 10.4 K/uL (4.3-11.0)
--- NOTE | 2019-10-09 16:40 | NUR ---
BANK RECONCILIATOR: Karen BP 145/62, stopped Levophed gtt
[2019-10-09 17:01] LABS: CALCIUM, SERUM 7.7 mg/dL (8.5-10.1); CARBON DIOXIDE 29 mmol/L (21-32); CHLORIDE 96 mmol/L (98-107); CREATININE 1.3 mg/dL (0.6-1.3); GLUCOSE 63 mg/dL (74-106); POTASSIUM 3.4 mmol/L (3.5-5.1); SODIUM SERUM 136 mmol/L (136-145); UREA NITROGEN, BLOOD 9 mg/dL (7-18)
[2019-10-09 17:07] LABS: ALANINE AMINOTRANSFERASE 29 U/L (12-78); ALBUMIN 2.1 g/dL (3.4-5.0); ALKALINE PHOSPHATASE 77 U/L (46-116); ASPARTATE AMINOTRANSFERASE 65 U/L (15-37); BILIRUBIN,TOTAL 0.8 mg/dL (0.2-1.0); TOTAL PROTEIN, SERUM 5.3 g/dL (6.4-8.2)
--- NOTE | 2019-10-09 17:15 | NUR ---
SIGNAL CONSTRUCTOR: Levophed gtt is off, SBP over 100, Lactic acid 5.2/sent message for
[2019-10-09] MEDS ORDERED: EPINEPHRINE (1:10,000) SYRINGE 1 MG/10 ML DISP.SYRIN IVP ONE (18:35)
[2019-10-09] MEDS ORDERED: FEE EMEERGENCY 1 MIN EA MC ONE (18:35)
[2019-10-09] MEDS ORDERED: NOREPINEPHRINE 4 MG/4 ML AMPUL IV ONE (18:35)
[2019-10-09] MEDS: PROPOFOL 100 ML IV PRN (18:40)
[2019-10-09 20:00] LABS: BILIRUBIN,DIRECT 0.2 mg/dL (0.0-0.2)
--- NOTE | 2019-10-09 21:07 | NUR ---
SALES OPERATIONS ASSOCIATE, INITIAL ASSESSMENT. RECEIVED THE PT REST ON THE BED. ORALLY INTUBATED. SEDATED WITH DIPRIVAN. ETT #7- 0,LIP 18AC 14,TV 400 ,FIO2 100%, SAT 100%%`LISA SOFT WRIST RESTRAINT CHECKED AND RELEASED. NO INJURY OR REDNESS NOTED. MEDICAL LABORATORY SPECIALIST SHOWING A FIB. CONTROLLED, IV RT UPPER ARM MID LINE LRT AND LT AC 20G. IVF D10 100 ML/H,DIPRIVAN 12MCG/KG/MIN, GT INTACT. PT IS NPO. WILL CONTINUE TO MONITOR VITALS.
[2019-10-09 22:55] LABS: MAGNESIUM 0.9 mg/dL (1.8-2.4)
[2019-10-09] MEDS: Magnesium 1GM/D5W 100ML PREMIX 100 ML IV SCH (23:10)
--- NOTE | 2019-10-09 23:29 | NUR ---
NUDE MODEL.APRESOLINE NOT GIVEN BLOOD PRESSURE IS 95/50 WILL CONTINUE TO MONITOR
[2019-10-10] VITALS (56 sets, daily range): BP systolic 90–154; BP diastolic 33–69
--- NOTE | 2019-10-10 00:02 | NUR ---
CARRIER DRIVER MONITOR SHOWING MULTIPLE FREQUENT PVCS, MAG AND POTASSIUM LEVEL DONE. MAG IS 0.9AND POTASSIUM IS 3-0 .NOTIFIED EBONI PREPARER SAMPLES AND REPAIRS NEW ORDER RECEIVED . PT GETTING D10 100ML/H. BLOOD SUGAR IS AT THIS TIME 234, BRITNI MADE AWARE, IV FLUIDS NO CHANGES.
[2019-10-10] MEDS: Magnesium 1GM/D5W 100ML PREMIX 100 ML IV SCH ×3 (00:14→02:08)
[2019-10-10] MEDS: POTASSIUM CL. PREMIX PERIPHER. 50 ML IV SCH ×3 (00:26→02:26)
[2019-10-10] MEDS: BLOOD SUGAR DIAGNOSTIC 1 EACH STRIP IN SCH ×6 (00:34→21:01)
[2019-10-10] MEDS: IV 10% DEXTROSE 1,000 ML IV PRN (00:59)
[2019-10-10] MEDS: IPRATROPIUM NEB FS 0.5 MG/2.5 ML AMPUL.NEB NEB SCH ×6 (03:31→23:38)
[2019-10-10] MEDS: ALBUTEROL HALF STRENGTH 1.25 MG/3 ML VIAL.NEB NEB SCH ×6 (03:31→23:38)
--- NOTE | 2019-10-10 03:52 | NUR ---
LOCAL AREA NETWORK ADMINISTRATOR. AM CARE, ORAL CARE, BED BATH GIVEN. LINEN CHANGED. REMAINING SAME VENT SETTING TOLERATED WELL. SAT 98%, NO ACUTE DISTRESS NOTED, PROCESSING MANAGER SHOWING A FIB CONTROLLED. FC PATENT. HOB ELEVATED.GT INTACT. TURN AND REPOSITION Q2H. WILL CONTINUE TO MONITOR VITALS.
[2019-10-10 04:40] LABS: BASOPHILS % (AUTO) 0.4 % (0.0-2.0); EOSINOPHILS % (AUTO) 0.8 % (0.0-6.0); HEMATOCRIT 30 % (33-45); HEMOGLOBIN 9.9 g/dL (11.5-14.8); LYMPHOCYTES # (AUTO) 0.6 /CMM (0.8-4.8); LYMPHOCYTES % (AUTO) 5.8 % (20.0-44.0); MEAN CORPUSCULAR HGB CONC 33 g/dl (31.0-36.0); MEAN CORPUSCULAR VOLUME 84 fL (82-100); MONOCYTES # (AUTO) 0.4 /CMM (0.1-1.30); MONOCYTES % (AUTO) 3.8 % (2.0-12.0); NEUTROPHILS % (AUTO) 89.2 % (43.0-81.0); PLATELET COUNT (AUTO) 276 /CMM (150-450); RED BLOOD CELL COUNT(AUTO) 3.61 MIL/uL (4.0-5.2); WHITE BLOOD COUNT (AUTO) 10.1 K/uL (4.3-11.0)
[2019-10-10 04:55] LABS: CALCIUM, SERUM 6.9 mg/dL (8.5-10.1); CARBON DIOXIDE 31 mmol/L (21-32); CHLORIDE 95 mmol/L (98-107); CREATININE 1.4 mg/dL (0.6-1.3); GLUCOSE 316 mg/dL (74-106); MAGNESIUM 2.5 mg/dL (1.8-2.4); PHOSPHORUS 2.7 mg/dL (2.5-4.9); SODIUM SERUM 129 mmol/L (136-145); UREA NITROGEN, BLOOD 12 mg/dL (7-18)
[2019-10-10] MEDS: hydrALAZINE HCL 50 MG TABLET PO SCH ×3 (05:30→21:00)
[2019-10-10] MEDS: DILTIAZEM HCL 30 MG TABLET PO SCH ×3 (05:30→21:00)
--- NOTE | 2019-10-10 07:11 | NUR ---
ASSEMBLER BRAZER NOTES RECEIVED PATIENT SEDATED , NOT IN ACUTE DISTRESS , RESPIRATIONS EVEN AND UNLABORED WITH SPO2 OF 100% VIA MECHANICAL VENT SETTINGS ORDERED , ETT 7.0/[address] , AFIB 75 ON BEDSIDE MONITOR , PEG CLAMPED ABDOMEN SOFT NON TENDER , FC DRAINING V IA GRAVITY , GANESH MIDLINE PATENT AND INTACT WITH DIPRIVAN @ 15MCG/KG/MIN , D10 @ 100ML/HR INFUSING WELL , R WRIST A LINE PATENT AND INTACT WITH GOOD WAVE FORM , ALL NEEDS ATTENDED , WILL CONTINUE TO MONITOR
[2019-10-10] MEDS: PANTOPRAZOLE 40 MG TABLET.DR PO SCH (07:30)
[2019-10-10] MEDS: ALENDRONATE 70 MG TABLET PO SCH (07:30)
[2019-10-10] MEDS: ACETYLCYSTEINE 10% SOLN 400 MG/4 ML VIAL NEB SCH ×3 (07:49→23:38)
--- NOTE | 2019-10-10 08:15 | NUR ---
SUPERVISOR MILL NOTES NEELIMA HELD FOR SEDATION VACATION , VSS , NO DISTRESS , IS CALM AND COOPERATIVE AT THIS TIME , HOB @ 45, WILL CONTINUE TO MONITOR
[2019-10-10] MEDS: CALCIUM CARB 250MG /VITAMIN D 1 UDTAB PO SCH (08:36)
[2019-10-10] MEDS: FLUCONAZOLE (100 MG) 100 MG TABLET PO SCH (08:36)
[2019-10-10] MEDS: ENOXAPARIN SODIUM 60 MG/0.6 ML DISP.SYRIN SQ SCH (08:39)
[2019-10-10] MEDS: IV D5/ 0.9% NACL 1,000 ML IV PRN ×2 (08:39→19:04)
--- NOTE | 2019-10-10 09:00 | NUR ---
DIGITAL CONTENT PRODUCER NOTES DIPRIVAN STARTED @ 2MCG/KG/MIN , PT NOTED WITH MODERATE AGITATION , BP ELEVATED WITH DISTRESS , PT ABLE TO FOLLOW COMMANDS , OPENS EYES , TRACKS , WILL CONTINUE TO MONITOR
--- NOTE | 2019-10-10 09:40 | NUR ---
STRAP FOLDING MACHINE OPERATOR NOTES TRANSFERRED PT TO RADIOLOGY DEPT FOR CT SCAN OF THE ABDOMEN ORDERED VIA ACLS PROTOCOL , VSS , WILL CONTINUE TO MONITOR
--- NOTE | 2019-10-10 10:50 | NUR ---
SALES AGENT TRADING STAMPS NOTES VENT CHANGES PER MD TO AC 10 TV 400 FIO2 TITRATE SPO2 GREATER THAN OR EQUAL TO 94% , PEEP OF 5 , RT VANUSH AT BEDSIDE , VS STABLE , SPO2 OF 100% VIA MECHANICAL VENT , NO DISTRESS NOTED
[2019-10-10 12:17] LABS: OSMOLALITY,URINE 172 mOS/kg (340-1090)
[2019-10-10 12:31] LABS: URINE SODIUM, RANDOM 14 mmol/l (40-220)
[2019-10-10] MEDS: PROPOFOL 100 ML IV PRN ×2 (13:01→23:50)
--- NOTE | 2019-10-10 13:51 | NUR ---
SALES DEPARTMENT MANAGER NOTES SEEN AND EVALUATED BY DR VIVEROS , DISCUSSED LABS , AFEBRILE , VSS , ON MECHANICAL VENT SETTING ORDERED , INTUBATED , PENDING CT OF ABDOMEN RESULT , GT CLAMPED , PER MD CALL HIM FOR THE RESULT ,
--- NOTE | 2019-10-10 15:15 | NUR ---
MACHINE INKER NOTES DISCUSSED CT ABDOMEN RESULT TO DR JACKELINE MD AWARE , DR VIVEROS DISCUSSED THE RESULTS TO DR TRAN FOR POSSIBLE IR CONSULT , AWAITING FOR CALL BACK
--- NOTE | 2019-10-10 19:12 | NUR ---
MATTRESS FILLER NOTES PATIENT STABLE AT THIS TIME , SEDATED , NOT IN ACUTE DISTRESS , RESPIRATIONS EVEN AND UNLABORED WITH SPO2 OF 100% VIA MECHANICAL VENT SETTINGS ORDERED , ETT 7.0/[address] , AFIB 89 ON BEDSIDE MONITOR , PEG CLAMPED ABDOMEN SOFT NON TENDER , FC DRAINING VIA GRAVITY , GANESH MIDLINE PATENT AND INTACT WITH DIPRIVAN @ 20MCG/KG/MIN , D5 1/2 NS @ 75ML/HR INFUSING WELL , R WRIST A LINE PATENT AND INTACT WITH GOOD WAVE FORM , ALL NEEDS ATTENDED , REPROT GIVEN TO ADALGISA FOR CONTINUITY OF CARE
--- NOTE | 2019-10-10 19:30 | NUR ---
SEAFOOD PREPARER RCD PT W/DX SEPSIS; PT IS SEDATED ON PROPOFOL @ 20 MCG/KG/MIN W/BL SOFT WRIST RESTRAINTS IN PLACE; WILL MONITOR TO REMOVE IF PT IS ADEQUATELY SEDATED. AFIB ON MONITOR. INTUBATED 7@ 18 W/VENT SETTINGS AC 10 400 40% +5; PT HAS THIN CLEAR SECRETIONS. GANESH MIDLINE PATENT W/GOOD BLOOD RETURN; D5NS@ 75 ML/HR. PT NPO AT THIS TIME. GT CLAMPED PENDING REEVAL OF FREE AIR IN ABD. HOB 40 DEGREES.
--- NOTE | 2019-10-10 21:30 | NUR ---
SUPERVISOR IN CHARGE PT ADEQUATELY SEDATED ON PROPOFOL @ 20 MCG/KG/MIN WILL REMOVE BLSW RESTRAINTS AT THIS TIME. CONTINUE TO MONITOR.
[2019-10-11] VITALS (34 sets, daily range): BP systolic 98–182; BP diastolic 35–81
[2019-10-11] MEDS: BLOOD SUGAR DIAGNOSTIC 1 EACH STRIP IN SCH ×6 (00:07→21:11)
[2019-10-11] MEDS: IPRATROPIUM NEB FS 0.5 MG/2.5 ML AMPUL.NEB NEB SCH ×6 (03:33→23:17)
[2019-10-11] MEDS: ALBUTEROL HALF STRENGTH 1.25 MG/3 ML VIAL.NEB NEB SCH ×6 (03:33→23:17)
[2019-10-11] MEDS: DILTIAZEM HCL 30 MG TABLET PO SCH ×3 (05:00→20:56)
[2019-10-11] MEDS: hydrALAZINE HCL 50 MG TABLET PO SCH ×3 (05:00→20:57)
[2019-10-11 05:06] LABS: CALCIUM, SERUM 6.7 mg/dL (8.5-10.1); CARBON DIOXIDE 30 mmol/L (21-32); CHLORIDE 97 mmol/L (98-107); CREATININE 1.7 mg/dL (0.6-1.3); GLUCOSE 131 mg/dL (74-106); MAGNESIUM 1.9 mg/dL (1.8-2.4); PHOSPHORUS 3.1 mg/dL (2.5-4.9); POTASSIUM 3.9 mmol/L (3.5-5.1); SODIUM SERUM 133 mmol/L (136-145); UREA NITROGEN, BLOOD 13 mg/dL (7-18)
[2019-10-11 05:18] LABS: THYROID STIMULATING HORMONE 3.731 uIU/mL (0.358-3.74); URIC ACID 5.9 mg/dL (2.6-7.2)
--- NOTE | 2019-10-11 05:25 | NUR ---
BOAT MOTOR MECHANIC LACTIC ACID 2.5 ORDERED RCD FOR NS BOLUS; NO ORDER FOR REPEAT BLOW DRAW.
[2019-10-11] MEDS ORDERED: IV NS 0.9% 500 ML IV ONE (06:00)
--- NOTE | 2019-10-11 06:31 | NUR ---
SECURITY GUARD PT REMAINED OFF RESTRAINTS W/PROPOFOL AT 20 MCG/KG/MIN. PT TURNED AND REPOSITIONED Q2HRS. NO SKIN BREAKDOWN NOTED.
[2019-10-11] MEDS: PANTOPRAZOLE 40 MG TABLET.DR PO SCH (07:44)
[2019-10-11] MEDS: hydrALAZINE HCL IV 20 MG VIAL IV PRN (07:44)
[2019-10-11] MEDS: ACETYLCYSTEINE 10% SOLN 400 MG/4 ML VIAL NEB SCH ×3 (07:49→23:16)
--- NOTE | 2019-10-11 07:59 | NUR ---
RT PATIENT REC'D ORALLY INTUBATED ON [facility] VENT WITH ORDERED SETTINGS ANTONIA WELL. VENT ALARMS CHECKED + AUDIBLE. AIRWAY SECURE AND PATENT. AIRWAY SUCTIONED. PATIENT SEDATED AND APPEARS COMFORTABLE. HOMEU WANDA AT HOB. CONT CURRENT PLAN OF RESP CARE. Addendum: 10/11/19 at 1429 by BAYLEE BARKER RT Amended: Links added.
[2019-10-11] MEDS: IV D5/ 0.9% NACL 1,000 ML IV PRN ×2 (08:13→20:58)
[2019-10-11] MEDS: FLUCONAZOLE (100 MG) 100 MG TABLET PO SCH (08:14)
[2019-10-11] MEDS: CALCIUM CARB 250MG /VITAMIN D 1 UDTAB PO SCH (08:14)
[2019-10-11] MEDS: ENOXAPARIN SODIUM 60 MG/0.6 ML DISP.SYRIN SQ SCH (08:15)
[2019-10-11 09:14] LABS: ABG BASE EXCESS 1.9 mmol/L; ABG OXYGEN SATURATION 98.7 % (92.0-98.5); ABG PCO2 37.2 mmHg (35.0-45.0); ABG PH 7.457 (7.350-7.450); ABG PO2 184.5 mmHg (75.0-100.0); AaDO2 57.9 mmHg; COHb 0.3 % (0.5-1.5); MetHb 0.6 % (0.0-1.5); O2Hb 97.8 % (94.0-97.0); SITE, ABG Right Radial
[2019-10-11] MEDS: GLUCERNA 1.2 1,000 ML BOTTLE NG PRN (12:50)
[2019-10-11] MEDS: PROPOFOL 100 ML IV PRN (12:50)
--- NOTE | 2019-10-11 19:20 | NUR ---
ICU SHIFT SUMMARY Patient remains sedated on Propofol 20mcg/kg/min. During sedation vacation, patient was able to track, pupils were reactive and responded to verbal stimuli (her name). A fib, controlled throughout shift. Carcamo output 330mL total. No BM. GTF Glucerna started per Jaime DNP @20mL/hr. No residual noted. GANESH midline, L wrist 20G, L FA 20G, R wrist A line intact and patent. No acute distress noted throughout shift. Report given to noc RN for LEANDER.
--- NOTE | 2019-10-11 19:52 | NUR ---
RT NOTE PATIENT REC'D ETT ON [facility] VENT WITH ORDERED SETTINGS TOLERATING WELL. VENT ALARMS ON AND AUDIBLE. TRACH SECURE AND PATIENT. AIRWAY SUCTIONED PRN. AMBU BAG AT [facility]. WILL CONTINUE TO MONITOR.. Addendum: 10/11/19 at 1954 by SUKHDEV GOMEZ RT Amended: Links added.
[2019-10-12] VITALS (36 sets, daily range): BP systolic 88–204; BP diastolic 42–145
[2019-10-12] MEDS: PROPOFOL 100 ML IV PRN (00:01)
[2019-10-12] MEDS: BLOOD SUGAR DIAGNOSTIC 1 EACH STRIP IN SCH ×6 (01:30→21:18)
[2019-10-12] MEDS: IPRATROPIUM NEB FS 0.5 MG/2.5 ML AMPUL.NEB NEB SCH ×6 (03:58→23:30)
[2019-10-12] MEDS: ALBUTEROL HALF STRENGTH 1.25 MG/3 ML VIAL.NEB NEB SCH ×6 (03:58→23:30)
[2019-10-12 04:18] LABS: BASOPHILS % (AUTO) 0.5 % (0.0-2.0); HEMATOCRIT 29 % (33-45); HEMOGLOBIN 9.2 g/dL (11.5-14.8); LYMPHOCYTES # (AUTO) 0.8 /CMM (0.8-4.8); LYMPHOCYTES % (AUTO) 11.3 % (20.0-44.0); MEAN CORPUSCULAR HGB CONC 32 g/dl (31.0-36.0); MEAN CORPUSCULAR VOLUME 84 fL (82-100); MONOCYTES # (AUTO) 0.3 /CMM (0.1-1.30); MONOCYTES % (AUTO) 3.7 % (2.0-12.0); NEUTROPHILS # (AUTO) 5.9 /CMM (1.8-8.9); NEUTROPHILS % (AUTO) 81.5 % (43.0-81.0); PLATELET COUNT (AUTO) 252 /CMM (150-450); RED BLOOD CELL COUNT(AUTO) 3.38 MIL/uL (4.0-5.2); WHITE BLOOD COUNT (AUTO) 7.3 K/uL (4.3-11.0)
[2019-10-12 04:35] LABS: ALANINE AMINOTRANSFERASE 9 U/L (12-78); ALBUMIN 1.5 g/dL (3.4-5.0); ALKALINE PHOSPHATASE 95 U/L (46-116); ASPARTATE AMINOTRANSFERASE 38 U/L (15-37); BILIRUBIN,TOTAL 0.3 mg/dL (0.2-1.0); CALCIUM, SERUM 6.5 mg/dL (8.5-10.1); CARBON DIOXIDE 26 mmol/L (21-32); CHLORIDE 100 mmol/L (98-107); CREATININE 1.7 mg/dL (0.6-1.3); GLUCOSE 152 mg/dL (74-106); MAGNESIUM 1.9 mg/dL (1.8-2.4); PHOSPHORUS 3.2 mg/dL (2.5-4.9); POTASSIUM 3.4 mmol/L (3.5-5.1); SODIUM SERUM 133 mmol/L (136-145); TOTAL PROTEIN, SERUM 4.3 g/dL (6.4-8.2); UREA NITROGEN, BLOOD 16 mg/dL (7-18)
[2019-10-12] MEDS: DILTIAZEM HCL 30 MG TABLET PO SCH ×3 (05:00→21:17)
[2019-10-12] MEDS: hydrALAZINE HCL 50 MG TABLET PO SCH ×3 (05:00→21:17)
--- NOTE | 2019-10-12 05:21 | NUR ---
cardizem and apresoline were held at 0500 due to low bp and low hr 102/59 and 57.
[2019-10-12] MEDS: PANTOPRAZOLE 40 MG TABLET.DR PO SCH (07:30)
[2019-10-12] MEDS: ACETYLCYSTEINE 10% SOLN 400 MG/4 ML VIAL NEB SCH ×3 (07:39→23:30)
[2019-10-12] MEDS: CALCIUM CARB 250MG /VITAMIN D 1 UDTAB PO SCH (09:13)
[2019-10-12] MEDS: APIXABAN 2.5 MG TABLET PO SCH ×2 (09:15→18:01)
[2019-10-12 10:36] LABS: ABG BASE EXCESS -1.5 mmol/L; ABG OXYGEN SATURATION 97.5 % (92.0-98.5); ABG PCO2 35.9 mmHg (35.0-45.0); ABG PH 7.417 (7.350-7.450); ABG PO2 114.6 mmHg (75.0-100.0); AaDO2 129.3 mmHg; COHb 0.3 % (0.5-1.5); MetHb 0.7 % (0.0-1.5); O2Hb 96.5 % (94.0-97.0); SITE, ABG A-Line
--- NOTE | 2019-10-12 10:50 | NUR ---
RT PER DR TILLMAN PATIENT EXTUBATED AND PLACED ON SUPPLEMENTAL O2. NO SOB. RN AT BEDSIDE
[2019-10-12] MEDS ORDERED: POTASSIUM CHLORIDE 20 MEQ POWDER PACKET NG SCH ×2 (11:30→19:36)
[2019-10-12] MEDS: MORPHINE SULFATE INJ 2 MG/ML DISP.SYRIN IVP PRN (14:16)
[2019-10-12] MEDS: hydrALAZINE HCL IV 20 MG VIAL IV PRN (17:59)
--- NOTE | 2019-10-12 18:00 | NUR ---
ICU SHIFT SUMMARY Patient A/Ox1, khmer speaking, hard of hearing. Extubated today @1045, no SOB noted, placed on 3L O2via NC. A fib, controlled. Carcamo intact, see I/O. Patient able to move extremities well. No skin breakdown noted, mepilex applied to sacrum for protection. GTF increased to 35mL/hr @1600, no residual noted throughout shift. No BM. GANESH midline, L wrist 20G, L FA 20G, patent. A-line REMOVED. Bed alarm not working, NOC RN aware.
[2019-10-12] MEDS: IV D5/ 0.9% NACL 1,000 ML IV PRN (18:31)
[2019-10-12] MEDS: GLUCERNA 1.2 1,000 ML BOTTLE NG PRN (18:31)
[2019-10-13] VITALS (35 sets, daily range): BP systolic 134–178; BP diastolic 43–112
[2019-10-13] MEDS: BLOOD SUGAR DIAGNOSTIC 1 EACH STRIP IN SCH ×6 (02:31→21:40)
--- NOTE | 2019-10-13 03:00 | NUR ---
PATIENT IS TRYING TO GET OUT OF BED BY SAYING SHE IS TIERED BEING IN BED AND SHE IS PULLING HER IV LINES AND NEW G-TUBE. MD LAMBERT NOTIFIED AND NEW ORDER OF SOFT BLE WRIST RESTRAINTS ARE IN PLACE. ORDER READ BACK AND VERIFICATION HAS BEEN DONE. WILL APPLY RESTRAINTS AND CONTINUE TO MONITOR PATIENT CLOSELY.
[2019-10-13] MEDS: IPRATROPIUM NEB FS 0.5 MG/2.5 ML AMPUL.NEB NEB SCH ×6 (03:25→23:42)
[2019-10-13] MEDS: ALBUTEROL HALF STRENGTH 1.25 MG/3 ML VIAL.NEB NEB SCH ×6 (03:25→23:42)
[2019-10-13] MEDS: DILTIAZEM HCL 30 MG TABLET PO SCH ×3 (05:17→20:53)
[2019-10-13] MEDS: hydrALAZINE HCL 50 MG TABLET PO SCH ×3 (05:17→20:53)
[2019-10-13 05:37] LABS: CARBON DIOXIDE 27 mmol/L (21-32); CHLORIDE 102 mmol/L (98-107); CREATININE 1.9 mg/dL (0.6-1.3); GLUCOSE 189 mg/dL (74-106); SODIUM SERUM 136 mmol/L (136-145); UREA NITROGEN, BLOOD 18 mg/dL (7-18)
[2019-10-13] MEDS: HYDROCODONE/APAP 5/325MG 1 EACH TABLET PO PRN (05:58)
[2019-10-13] MEDS: ACETYLCYSTEINE 10% SOLN 400 MG/4 ML VIAL NEB SCH ×3 (07:41→23:42)
[2019-10-13] MEDS: CALCIUM CARB 250MG /VITAMIN D 1 UDTAB PO SCH (09:25)
[2019-10-13] MEDS: PANTOPRAZOLE 40 MG TABLET.DR PO SCH (09:25)
[2019-10-13] MEDS: APIXABAN 2.5 MG TABLET PO SCH ×2 (09:25→16:57)
[2019-10-13] MEDS: MORPHINE SULFATE INJ 2 MG/ML DISP.SYRIN IVP PRN (09:26)
[2019-10-13] MEDS: IV D5/ 0.9% NACL 1,000 ML IV PRN (12:12)
[2019-10-13] MEDS ORDERED: INSULIN REGULAR, HUMAN 100 UNIT/ML 3 ML VIAL SQ PRN (14:30)
[2019-10-13] MEDS ORDERED: DEXTROSE 50%-WATER 50 ML DISP.SYRIN IV PRN ×2 (14:30)
[2019-10-13] MEDS: GLUCERNA 1.2 1,000 ML BOTTLE NG PRN (16:57)
[2019-10-13] MEDS: hydrALAZINE HCL IV 20 MG VIAL IV PRN (17:00)
[2019-10-13] MEDS ORDERED: BLOOD SUGAR DIAGNOSTIC 1 EACH STRIP IN SCH (17:30)
[2019-10-13] MEDS ORDERED: IV NS 0.9% 250 ML IV ONE (18:00)
[2019-10-13] MEDS: INSULIN REGULAR, HUMAN 100 UNIT/ML 3 ML VIAL SQ PRN (18:00)
--- NOTE | 2019-10-13 18:56 | NUR ---
ICU SHIFT SUMMARY Patient remains A/Ox2, tanzanian speaking, hard of hearing. On 2.5L O2 via NC SPO2 >95%, no SOB or distress. Per tele monitor rhythm afib, HR 70s. Carcamo catheter removed @1600 per Liana Ulrich NP order. No output noted thus far. No BM this shift. Skin remains intact. Patient restrained as tries to get out bed and pulls at lines, yelling out. See documentation. No s/s skin breakdown, decreased circulation or decreased sensation. GTF running @45mL/hr, no residual noted. R UA midline TKO, L FA 20G, L wrist 20G patent. PRN hydralazine given. Orders received for downgrade, per rim fire charger operator, after shift change today.
--- NOTE | 2019-10-13 19:00 | NUR ---
RECEIVED PATIENT AWAKE,ALERT,SPEAKS ONLY ETHIOPIAN/RESPONDS TO NAME,BUT DOES NOT SEEM TO UNDERSTAND,FOLLOWS SIMPLE COMMANDS.NOT IN NAY DISTRESS,BREATHING REGULAR AND NON LABORED WITH O2 VIA NASAL CANNULA 3 l/MIN. ON TUBE FEEDING VIA PEG TUBE,TOLERATING WELL. FOR TRANSFER TO [facility] WHEN BED AVAILABLE.
--- NOTE | 2019-10-13 20:00 | NUR ---
REPORT GIVEN TO ANITA SUE , PATIENT FOR TRANSFER TO [facility]
--- NOTE | 2019-10-13 20:30 | NUR ---
TRANSFERED TO [facility],STABLE,AWAKE,ALERT,NOT IN ANY RESPIRATORY DISTRESS.
--- NOTE | 2019-10-13 20:43 | NUR ---
RN NOTE RECEIVED PT FROM ICU. PT WITHOUT INDICATIONS OF PAIN OR DISTRESS. ON 3L OF O2 VIA NC AND TOLERATING WELL. NOTED WITH ELEVATED BP. WILL ADMINISTER BP MEDICATION ORDERED. PT KEPT COMFORTABLE. ON TELE MONITOR. MID LINE FLUSHES WELL. WITH PEG TUBE FLUSHING WELL WITH < 10ML OF RESIDUAL. PLACEMENT VERIFIED VIA AUSCULTATION. SAFETY MEASURES IN PLACE. CALL LIGHT WITHIN REACH, WILL MONITOR.
[2019-10-14] VITALS (7 sets, daily range): BP systolic 150–169; BP diastolic 66–97
[2019-10-14] MEDS: ALBUTEROL HALF STRENGTH 1.25 MG/3 ML VIAL.NEB NEB SCH ×6 (02:54→23:49)
[2019-10-14] MEDS: IPRATROPIUM NEB FS 0.5 MG/2.5 ML AMPUL.NEB NEB SCH ×6 (02:54→23:49)
[2019-10-14] MEDS: hydrALAZINE HCL 50 MG TABLET PO SCH ×3 (04:20→20:37)
[2019-10-14] MEDS: DILTIAZEM HCL 30 MG TABLET PO SCH ×3 (04:21→20:36)
[2019-10-14] MEDS: HYDROCODONE/APAP 5/325MG 1 EACH TABLET PO PRN (05:00)
[2019-10-14] MEDS: hydrALAZINE HCL IV 20 MG VIAL IV PRN (06:23)
[2019-10-14 06:26] LABS: BASOPHILS % (AUTO) 0.5 % (0.0-2.0); EOSINOPHILS % (AUTO) 2.2 % (0.0-6.0); HEMATOCRIT 30 % (33-45); HEMOGLOBIN 9.8 g/dL (11.5-14.8); LYMPHOCYTES # (AUTO) 0.5 /CMM (0.8-4.8); LYMPHOCYTES % (AUTO) 6.2 % (20.0-44.0); MEAN CORPUSCULAR HGB CONC 33 g/dl (31.0-36.0); MEAN CORPUSCULAR VOLUME 84 fL (82-100); MONOCYTES # (AUTO) 0.4 /CMM (0.1-1.30); MONOCYTES % (AUTO) 4.5 % (2.0-12.0); NEUTROPHILS # (AUTO) 7.1 /CMM (1.8-8.9); NEUTROPHILS % (AUTO) 86.6 % (43.0-81.0); PLATELET COUNT (AUTO) 294 /CMM (150-450); RED BLOOD CELL COUNT(AUTO) 3.58 MIL/uL (4.0-5.2); WHITE BLOOD COUNT (AUTO) 8.3 K/uL (4.3-11.0)
--- NOTE | 2019-10-14 06:53 | NUR ---
RN NOTE HYDRALIZINE 10MG IV GIVEN AT 0623 DUE TO SBP > 160. BLOOD PRESSURE RECHECKED AT 0653 WITH READING OF 155/53. WILL ENDORSE TO MORNING RN TO MONITOR BLOOD PRESSURE.
[2019-10-14 06:55] LABS: CALCIUM, SERUM 7.6 mg/dL (8.5-10.1); CARBON DIOXIDE 24 mmol/L (21-32); CHLORIDE 102 mmol/L (98-107); CREATININE 1.9 mg/dL (0.6-1.3); GLUCOSE 129 mg/dL (74-106); MAGNESIUM 1.7 mg/dL (1.8-2.4); PHOSPHORUS 3.8 mg/dL (2.5-4.9); POTASSIUM 4.6 mmol/L (3.5-5.1); SODIUM SERUM 134 mmol/L (136-145); UREA NITROGEN, BLOOD 21 mg/dL (7-18)
--- NOTE | 2019-10-14 07:04 | NUR ---
RN NOTE ENDORSED TO MORNING RN SHABNAM FOR CONTINUITY OF CARE.
[2019-10-14] MEDS: BLOOD SUGAR DIAGNOSTIC 1 EACH STRIP IN SCH ×4 (07:37→21:39)
--- NOTE | 2019-10-14 07:45 | NUR ---
RN OPENING NOTES RECEIVED PATIENT IN BED, ASLEEP BUT EASILY AWAKEN WITH LIGHT TOUCH AND VOICE. . IN NO ACUTE DISTRESS NOTED. ON NASAL CANNULA @2L , SATURATING 975. NO FACIAL GRIMACING NOTED. IV ACCESS ON R UA MIDLINE, WITH NS 0.9% RUNNING @10ML/HR WITH 150 ML REMAINING ON THE BAG. NO SIGNS OF INFILTRATION NOTED ON THE SITE. GTUBE IN PLACE INTACT, PATENT AND FLUSHED WELL WITH 10 ML RESIDUAL NOTED. WITH ON GOING GLUCERNA 1.2 @50ML WITH REMAINING 450ML ON THE CONTAINER. BILATERAL RESTRAINTS ON WRIST, NO SIGNS IMPEDE CIRCULATION. SAFETY PRECAUTIONS IN PLACE. BED IN LOWEST POSITION AND LOCKED. CALL LIGHT WITHIN REACH. WILL CONTINUE TO MONITOR.
[2019-10-14] MEDS: ACETYLCYSTEINE 10% SOLN 400 MG/4 ML VIAL NEB SCH ×3 (07:58→23:49)
[2019-10-14] MEDS: PANTOPRAZOLE 40 MG TABLET.DR PO SCH (08:16)
[2019-10-14] MEDS: CALCIUM CARB 250MG /VITAMIN D 1 UDTAB PO SCH (08:17)
[2019-10-14] MEDS: APIXABAN 2.5 MG TABLET PO SCH ×2 (08:18→17:30)
[2019-10-14] MEDS: INSULIN REGULAR, HUMAN 100 UNIT/ML 3 ML VIAL SQ PRN ×2 (08:19→18:15)
[2019-10-14] MEDS: GLUCERNA 1.2 1,000 ML BOTTLE NG PRN (13:55)
[2019-10-14] MEDS ORDERED: Magnesium 1GM/D5W 100ML PREMIX 100 ML IV SCH (14:30)
--- NOTE | 2019-10-14 19:10 | NUR ---
RN OPENING NOTE RECEIVED PATIENT IN BED RESTING WITH HOB ELEVATED. A&O X1. ABLE TO MAKE NEEDS KNOWN. BREATHING EVEN AND NON LABORED. NO SOB NOTED. ON GTF GLUCERNA 1.2 @ 50 ML/HR. ON BILATERAL SOFT WRIST RESTRAINTS. IN NO APPARENT DISTRESS NOTED AT THIS TIME. WILL CONTINUE TO MONITOR.
--- NOTE | 2019-10-14 19:22 | NUR ---
RN CLOSING NOTES PATIENT IN BED, AWAKE. VERBALLY RESPONSIVE, TURKS AND [place] ISLANDER SPEAKING ONLY. IN NO ACUTE DISTRESS NOTED. ON NASAL CANNULA 3L SATURATING WELL @98%. NO SOB NOTED. IV ACCESS ON R UA MIDLINE AND L WRIST, INTACT, PATENT AND FLUSHED WELL. NO SIGNS OF INFILTRATION. BILATERAL SOFT WRIST RESTRAINTS IN PLACE NOS SIGNS OF IMPEDE CIRCULATION. ALL DUE MEDS GIVEN VIA GTUBE AND TOLERATED WELL./ Addendum: 10/14/19 at 1927 by DEVYN URBANO RN G TUBE IN PLACE, INTACT PATENT AND FLUSHED WELL NO RESIDUAL NOTED. SAFETY MEASURES IN PLACED, BED ON LOWEST POSITIONED AND LOCKED. CALL LIGHT WITHIN REACHED. ENDORSED TO PM RN FOR LEANDER
[2019-10-14] MEDS: MORPHINE SULFATE INJ 2 MG/ML DISP.SYRIN IVP PRN (20:25)
[2019-10-15] VITALS (48 sets, daily range): BP systolic 100–195; BP diastolic 48–105
[2019-10-15] MEDS: HYDROCODONE/APAP 5/325MG 1 EACH TABLET PO PRN (00:12)
[2019-10-15] MEDS: ALBUTEROL HALF STRENGTH 1.25 MG/3 ML VIAL.NEB NEB SCH ×5 (04:10→19:31)
[2019-10-15] MEDS: IPRATROPIUM NEB FS 0.5 MG/2.5 ML AMPUL.NEB NEB SCH ×5 (04:10→19:31)
[2019-10-15] MEDS: hydrALAZINE HCL 50 MG TABLET PO SCH ×3 (05:49→21:16)
[2019-10-15] MEDS: DILTIAZEM HCL 30 MG TABLET PO SCH ×3 (05:50→21:16)
--- NOTE | 2019-10-15 06:59 | NUR ---
RN CLOSING NOTE PATIENT IS IN BED RESTING WITH HOB ELEVATED. A&O X1. CONFUSED. BREATHING EVEN AND NON LABORED. NO SOB NOTED. DUE MEDS GIVEN AND TOLERATED WELL. ON GTF FEEDING. IV SITE ON LEFT WRIST DISCONTINUED. ON BILATERAL SOFT WRIST RESTRAINS. RESTRAINED RENEWED AT 0423 TODAY, PER DR. LAMBERT. PATIENT NOTED WITH PERIODS OF IRRITATION AND YELLING. BED LOWERED AND LOCKED FOR SAFETY. WILL ENDORSE TO AM SHIFT RN FOR CONTINUATION OF CARE.
--- NOTE | 2019-10-15 07:15 | NUR ---
RN NOTE: RECEIVED PATIENT IN BED. AWAKE AND CONFUSED. NOTED TO BE SCREAMING AND RESTLESS AT TIMES. ON CONT. 02 VIA NC @ 3LPM AND TOLERATING WELL. NO SOB, NO RESPIRATORY DISTRESS NOTED. IV SITE ON GANESH MIDLINE CLEAN, DRY, INTACT AND PATENT. GTUBE IN PLACE, FEEDING PLACED ON HOLD DUE TO PATIENT HAVING >100MLS RESIDUAL AND VOMITING PER EFFICIENCY MANAGER. WITH BILATERAL SOFT WRIST RESTRAINTS FOR BEHAVIOR IDENTIFIED. TELE MONITORING SHOWING UNCONTROLLED A. FIB IN THE 120-130S. CALL LIGHT IN REACH. BED LOCKED, LOW AND AT SEMI-MORROW'S POSITION. WILL CONTINUE TO MONITOR.
[2019-10-15 07:24] LABS: CALCIUM, SERUM 8.5 mg/dL (8.5-10.1); CARBON DIOXIDE 24 mmol/L (21-32); CHLORIDE 101 mmol/L (98-107); CREATININE 2.1 mg/dL (0.6-1.3); GLUCOSE 199 mg/dL (74-106); POTASSIUM 5.6 mmol/L (3.5-5.1); SODIUM SERUM 135 mmol/L (136-145); UREA NITROGEN, BLOOD 29 mg/dL (7-18)
[2019-10-15] MEDS: MORPHINE SULFATE INJ 2 MG/ML DISP.SYRIN IVP PRN (07:55)
[2019-10-15] MEDS: PANTOPRAZOLE 40 MG TABLET.DR PO SCH (07:55)
--- NOTE | 2019-10-15 08:00 | NUR ---
RN NOTE: ROUNDING DONE. NO ACUTE CHANGES NOTED ON PATIENT. IN NO APPARENT DISTRESS. STILL NOTED TO HAVE BEHAVIOR OF PULLING LINES.
[2019-10-15] MEDS: ACETYLCYSTEINE 10% SOLN 400 MG/4 ML VIAL NEB SCH ×2 (08:10→15:35)
[2019-10-15] MEDS: BLOOD SUGAR DIAGNOSTIC 1 EACH STRIP IN SCH ×4 (08:44→22:22)
[2019-10-15] MEDS: APIXABAN 2.5 MG TABLET PO SCH ×2 (09:17→17:30)
[2019-10-15] MEDS: CALCIUM CARB 250MG /VITAMIN D 1 UDTAB PO SCH (09:18)
[2019-10-15] MEDS: INSULIN REGULAR, HUMAN 100 UNIT/ML 3 ML VIAL SQ PRN ×2 (09:18→22:23)
[2019-10-15] MEDS ORDERED: BUMETANIDE INJ 8 MG in IV D5W 48 ML IV ONE (10:00)
--- NOTE | 2019-10-15 10:00 | NUR ---
RN NOTE: ROUNDING DONE. NO ACUTE CHANGES NOTED ON PATIENT. IN NO APPARENT DISTRESS. STILL NOTED TO HAVE BEHAVIOR OF PULLING LINES.
--- NOTE | 2019-10-15 10:13 | NUR ---
Dr. Ybarra gave a verbal order for STAT ABG for the patient. Called and spoke with RT Anju to draw blood. Primary nurse Melia made aware.
--- NOTE | 2019-10-15 10:40 | NUR ---
RN NOTE: PATIENT WAS BROUGHT TO ICU AT 1037 FOR UNRESPONSIVENESS. CODE BLUE WAS CALLED AT 1025 AND PATIENT WAS INTUBATED [id number].
--- NOTE | 2019-10-15 10:40 | NUR ---
RN NOTE: STAT ABG WAS DONE FOR PATIENT AND DURING PROCEDURE WAS FOUND TO BE BRADYCARDIC VIA THE TELE MONITOR. CHARGE NURSE WENT INSIDE ROOM TO VERIFY SITUATION AND CALLED RAPID RESPONSE TO PATIENT. PATIENT THEN SHOWED ASYSTOLE IN THE MONITOR AND WAS UNRESPONSIVE AND PULSELESS AND CODE BLUE WAS CALLED IN. CODE TEAM CAME AND WAS ABLE TO RESUSCITATE PATIENT AND SHE WAS TRANSFERRED TO ICU FOR FURTHER MONITORING
--- NOTE | 2019-10-15 10:53 | NUR ---
RT NOTE RT CALLED TO DRAW STAT ABG. PATIENT FOUND UNRESPONSIVE WITH NO PULSE, POST HOLE DIGGER ELAINE NOTIFIED. CODE BLUE CALLED. PT INTUBATED BY DR. FORBES. PATIENT STABILIZED AND TRANSFERRED TO ICU.
--- NOTE | 2019-10-15 10:55 | NUR ---
RT Abner garrett was called overhead, upon arrival CPR was already being initiated. Pt intubated with a 7.5 ET tube secured at 23cm at the lip line. Equal bilateral breathe sounds and chest rise noted. Positive color changed observed on CO2 indicator. Pt had ROSC and was then transferred to ICU and placed on mechanical ventilation with noted settings. Addendum: 10/15/19 at 1108 by BRY SEALS RT Amended: Links added.
--- NOTE | 2019-10-15 11:00 | NUR ---
RN NOTE: TRINI ERIC INFORMED ABOUT PATIENT'S SITUATION AND CURRENT ROOM OF 252. ACKNOWLEDGED AND ACCEPTED INFORMATION.
--- NOTE | 2019-10-15 11:00 | NUR ---
RADIO DIVISION LIEUTENANT NOTE: PATIENT WAS BROUGHT TO ICU AFTER RESUSCITATION DUE TO UNRESPONSIVENESS AND LACK OF PULSE. REPORT WAS GIVEN TO NURSE GILMORE.
--- NOTE | 2019-10-15 11:20 | NUR ---
RT ET tube retracted 1cm per Dr. Ybarra orders post x-ray. ET tube is now secured at 22cm at the lip line. Equal bilateral breathe sounds and chest rise noted. Addendum: 10/15/19 at 1647 by BRY SEALS RT Amended: Links added.
[2019-10-15] MEDS ORDERED: EPINEPHRINE (1:10,000) SYRINGE 1 MG/10 ML DISP.SYRIN IVP ONE (11:30)
[2019-10-15] MEDS ORDERED: FEE EMEERGENCY 1 MIN EA MC ONE (11:30)
[2019-10-15] MEDS ORDERED: SODIUM BICARBONATE SYR 50 MEQ/50 ML DISP.SYRIN IV ONE (11:30)
[2019-10-15] MEDS: PROPOFOL 100 ML IV PRN (11:46)
--- NOTE | 2019-10-15 12:20 | NUR ---
received pt from Tele, s/p full cardiac arrest, intubated, A fib controlled, started pt on Diprivan at 5mcg, lungs are congested, BL pleural edema also present, no edema, GT feeding, f/c inserted, restraints on, v/s stable, no pain, seen by MD.
[2019-10-15 12:36] LABS: CALCIUM, SERUM 8.3 mg/dL (8.5-10.1); CARBON DIOXIDE 23 mmol/L (21-32); CHLORIDE 103 mmol/L (98-107); CREATININE 2.2 mg/dL (0.6-1.3); GLUCOSE 124 mg/dL (74-106); POTASSIUM 5.5 mmol/L (3.5-5.1); SODIUM SERUM 138 mmol/L (136-145); UREA NITROGEN, BLOOD 32 mg/dL (7-18)
[2019-10-15 12:42] LABS: ALANINE AMINOTRANSFERASE 37 U/L (12-78); ALBUMIN 2.1 g/dL (3.4-5.0); ALKALINE PHOSPHATASE 152 U/L (46-116); ASPARTATE AMINOTRANSFERASE 145 U/L (15-37); BILIRUBIN,TOTAL 0.8 mg/dL (0.2-1.0); TOTAL PROTEIN, SERUM 5.6 g/dL (6.4-8.2)
--- NOTE | 2019-10-15 17:05 | NUR ---
pt is sedated on Diprivan at 10mcg, A fib controlled, tolerates feeding, v/s stable, no pain, pt cleaned, changed and repositioned q2hrs, family at the bedside.
--- NOTE | 2019-10-15 19:00 | NUR ---
RN OPENING NOTES RECEIVED PATIENT IN BED, SEDATED. INTUBATED MECH VENT SETTINGS ORDERED, TOLERATING WELL, NO SOB OR RESP DISTRESS NOTED. ON TELE MONITOR CONTROLLED AFIB WITH HR 90'S-100'S. IV SITE GANESH MIDLINE, FLUSHING AND PATENT, SITE C/D/I; ON PROPOFOL DRIP AT 15MCG, WILL TITRATE PER PROTOCOL/ORDER. BUMEX RUNNING ORDERED, TOLERATING WELL. GTF RUNNING AT 50ML/HR, MINIMAL RESIDUAL NOTED. MENDOZA CATH IN PLACE, DRAINING YELLOW URINE. ON BILATERAL SOFT WRIST RESTRAINTS FOR PT SAFETY. SAFETY MEASURES IN PLACE; CALL LIGHT WITHIN REACH, SR UP X2, HOB ELEVATED, BED LOCKED AND IN LOW POSITION. WILL CONT TO MONITOR PT CLOSELY.
[2019-10-15] MEDS: hydrALAZINE HCL IV 20 MG VIAL IV PRN (19:18)
[2019-10-15] MEDS ORDERED: VANCOMYCIN 1 GM in IV D5W 250 ML IV ONE (20:00)
[2019-10-15] MEDS ORDERED: FEE PK DOSING 1 MIN EA MC ONE (20:33)
[2019-10-15] MEDS ORDERED: MEROPENEM 500 MG in IV NS 0.9% 50 ML IV ONE (21:00)
[2019-10-16] VITALS (61 sets, daily range): BP systolic 100–163; BP diastolic 43–84
--- NOTE | 2019-10-16 00:08 | NUR ---
RN NOTES CENTRAL LINE RN AT BEDSIDE INSERTING PICC LINE. TELEPHONE CONSENT BY DAUGHTER TRINI ERIC PLACED IN CHART. ANTIBIOTICS UNABLE TO GIVE YET DUE TO PT HARD STICK AND OTHER LINES BEING USED FOR PROPOFOL DRIP AND BUMEX DRIP.
[2019-10-16] MEDS: IPRATROPIUM NEB FS 0.5 MG/2.5 ML AMPUL.NEB NEB SCH ×7 (00:14→22:57)
[2019-10-16] MEDS: ACETYLCYSTEINE 10% SOLN 400 MG/4 ML VIAL NEB SCH ×4 (00:14→22:57)
[2019-10-16] MEDS: ALBUTEROL HALF STRENGTH 1.25 MG/3 ML VIAL.NEB NEB SCH ×7 (00:14→22:57)
[2019-10-16] MEDS: MEROPENEM 500 MG in IV NS 0.9% 50 ML IV SCH ×3 (01:27→20:13)
[2019-10-16] MEDS: PROPOFOL 100 ML IV PRN ×2 (02:32→15:14)
[2019-10-16] MEDS: hydrALAZINE HCL 50 MG TABLET PO SCH ×3 (05:04→20:10)
[2019-10-16] MEDS: DILTIAZEM HCL 30 MG TABLET PO SCH ×3 (05:05→20:10)
[2019-10-16 05:14] LABS: CALCIUM, SERUM 8.2 mg/dL (8.5-10.1); CARBON DIOXIDE 28 mmol/L (21-32); CHLORIDE 101 mmol/L (98-107); CREATININE 2.4 mg/dL (0.6-1.3); GLUCOSE 120 mg/dL (74-106); SODIUM SERUM 137 mmol/L (136-145); UREA NITROGEN, BLOOD 39 mg/dL (7-18)
--- NOTE | 2019-10-16 07:15 | NUR ---
RN CLOSING NOTES PATIENT IN BED, SEDATED. INTUBATED MECH VENT SETTINGS ORDERED, TOLERATING WELL, NO SOB OR RESP DISTRESS NOTED. ON TELE MONITOR CONTROLLED AFIB WITH HR 100'S. IV SITE GANESH PICC FLUSHING AND PATENT, SITE C/D/I; ON PROPOFOL DRIP AT 15MCG, TITRATED PER PROTOCOL/ORDER. GTF RUNNING AT 50ML/HR, MINIMAL RESIDUAL NOTED. MENDOZA CATH IN PLACE, DRAINING YELLOW URINE. ON BILATERAL SOFT WRIST RESTRAINTS FOR PT SAFETY. KEPT PT CLEAN, DRY, AND COMFORTABLE. SAFETY MEASURES IN PLACE; CALL LIGHT WITHIN REACH, SR UP X2, HOB ELEVATED, BED LOCKED AND IN LOW POSITION. ENDORSED TO AM RN FOR LEANDER.
[2019-10-16] MEDS ORDERED: BUMETANIDE INJ 16 MG in IV NS 0.9% 16 ML IV ONE (08:00)
[2019-10-16] MEDS: CALCIUM CARB 250MG /VITAMIN D 1 UDTAB PO SCH (08:24)
[2019-10-16] MEDS: BLOOD SUGAR DIAGNOSTIC 1 EACH STRIP IN SCH ×4 (08:24→21:52)
[2019-10-16] MEDS: PANTOPRAZOLE 40 MG TABLET.DR PO SCH (08:24)
[2019-10-16] MEDS: APIXABAN 2.5 MG TABLET PO SCH ×2 (08:25→16:38)
[2019-10-16 08:36] LABS: ABG BASE EXCESS 0.8 mmol/L; ABG OXYGEN SATURATION 96.6 % (92.0-98.5); ABG PCO2 31.1 mmHg (35.0-45.0); ABG PH 7.496 (7.350-7.450); ABG PO2 94.7 mmHg (75.0-100.0); AaDO2 190.8 mmHg; COHb 0.3 % (0.5-1.5); MetHb 0.7 % (0.0-1.5); O2Hb 95.6 % (94.0-97.0); PEEP,BG 5 cm H2O; SITE, ABG Right Radial; VT, ABG 450 mL
--- NOTE | 2019-10-16 09:02 | NUR ---
received pt from floral specialist, sedated on Diprivan at 15mcg, A fib controlled, on the vent intubated, GT to feeding tolerates well, f/c low output, v/s stable, no pain, pt turned and repositioned q2hrs.
[2019-10-16] MEDS: INSULIN REGULAR, HUMAN 100 UNIT/ML 3 ML VIAL SQ PRN ×2 (11:44→21:59)
--- NOTE | 2019-10-16 13:10 | NUR ---
HD cath insertion done by Dr Rausch.
--- NOTE | 2019-10-16 14:50 | NUR ---
RT NOTE: PATIENT RECEIVED ORALLY INTUBATED WITH 7.5 ETT SECURED AT 22 CM MID LIP LINE ON MECHANICAL VENT. ALARMS VERIFIED AND AUDIBLE. VENT PLUGGED INTO RED OUTLET. AMBU BAG AT [facility].
--- NOTE | 2019-10-16 16:07 | NUR ---
pt is sedated on Diprivan at 20mcg, A fib, HD done 2300 out, tolerates feeding, v/s stable, no pain, pt cleaned, changed and repositioned.
--- NOTE | 2019-10-16 19:00 | NUR ---
RN OPENING NOTES RECEIVED PATIENT IN BED, SEDATED. INTUBATED MECH VENT SETTINGS ORDERED, TOLERATING WELL, NO SOB OR RESP DISTRESS NOTED. ON TELE MONITOR CONTROLLED AFIB WITH HR 90'S. IV SITE GANESH PICC, FLUSHING AND PATENT, SITE C/D/I; ON PROPOFOL DRIP AT 20MCG, WILL TITRATE PER PROTOCOL/ORDER. RIGHT FEM HD CATH NOTED INTACT. GTF RUNNING AT 50ML/HR, MINIMAL RESIDUAL NOTED. MENDOZA CATH IN PLACE, DRAINING YELLOW URINE. ON BILATERAL SOFT WRIST RESTRAINTS FOR PT SAFETY. SAFETY MEASURES IN PLACE; CALL LIGHT WITHIN REACH, SR UP X2, HOB ELEVATED, BED LOCKED AND IN LOW POSITION. WILL CONT TO MONITOR PT CLOSELY.
[2019-10-16] MEDS: GLUCERNA 1.2 1,000 ML BOTTLE NG PRN (20:02)
--- NOTE | 2019-10-16 20:38 | NUR ---
RN NOTES AT 1999, PATIENT BP 163/73. SCHEDULED HYDRALAZINE AND CARDIZEM GIVEN. BP NOW 150/74. WILL CONT TO MONITOR BP CLOSELY.
[2019-10-17] VITALS (29 sets, daily range): BP systolic 118–167; BP diastolic 48–99
[2019-10-17] MEDS: ALBUTEROL HALF STRENGTH 1.25 MG/3 ML VIAL.NEB NEB SCH ×6 (03:22→23:17)
[2019-10-17] MEDS: IPRATROPIUM NEB FS 0.5 MG/2.5 ML AMPUL.NEB NEB SCH ×6 (03:22→23:17)
[2019-10-17] MEDS: DILTIAZEM HCL 30 MG TABLET PO SCH (04:11)
[2019-10-17] MEDS: hydrALAZINE HCL 50 MG TABLET PO SCH (04:11)
[2019-10-17] MEDS: PROPOFOL 100 ML IV PRN ×2 (05:01→17:02)
--- NOTE | 2019-10-17 05:01 | NUR ---
RN NOTES AT 0400, PATIENT BP 163/99. SCHEDULED HYDRALAZINE AND CARDIZEM GIVEN. BP NOW 140/58. WILL CONT TO MONITOR BP CLOSELY.
[2019-10-17 05:42] LABS: BASOPHILS % (AUTO) 0.2 % (0.0-2.0); EOSINOPHILS % (AUTO) 1.4 % (0.0-6.0); HEMATOCRIT 25 % (33-45); HEMOGLOBIN 8.2 g/dL (11.5-14.8); LYMPHOCYTES # (AUTO) 0.5 /CMM (0.8-4.8); LYMPHOCYTES % (AUTO) 4.9 % (20.0-44.0); MEAN CORPUSCULAR HGB CONC 33 g/dl (31.0-36.0); MEAN CORPUSCULAR VOLUME 84 fL (82-100); MONOCYTES # (AUTO) 0.4 /CMM (0.1-1.30); MONOCYTES % (AUTO) 4.4 % (2.0-12.0); NEUTROPHILS # (AUTO) 8.4 /CMM (1.8-8.9); NEUTROPHILS % (AUTO) 89.1 % (43.0-81.0); PLATELET COUNT (AUTO) 168 /CMM (150-450); WHITE BLOOD COUNT (AUTO) 9.4 K/uL (4.3-11.0)
[2019-10-17] MEDS ORDERED: VANCOMYCIN 0.75 GM in IV D5W 250 ML IV SCH (06:00)
[2019-10-17 06:10] LABS: ALANINE AMINOTRANSFERASE 21 U/L (12-78); ALBUMIN 1.9 g/dL (3.4-5.0); ALKALINE PHOSPHATASE 137 U/L (46-116); ASPARTATE AMINOTRANSFERASE 38 U/L (15-37); BILIRUBIN,TOTAL 0.6 mg/dL (0.2-1.0); CARBON DIOXIDE 28 mmol/L (21-32); CHLORIDE 101 mmol/L (98-107); CREATININE 2.2 mg/dL (0.6-1.3); GLUCOSE 186 mg/dL (74-106); MAGNESIUM 1.7 mg/dL (1.8-2.4); PHOSPHORUS 2.8 mg/dL (2.5-4.9); POTASSIUM 4.6 mmol/L (3.5-5.1); SODIUM SERUM 137 mmol/L (136-145); TOTAL PROTEIN, SERUM 5.6 g/dL (6.4-8.2); UREA NITROGEN, BLOOD 32 mg/dL (7-18)
--- NOTE | 2019-10-17 07:01 | NUR ---
RN CLOSING NOTES PATIENT IN BED, SEDATED. NO ACUTE CHANGES THROUGHOUT SHIFT. INTUBATED MECH VENT SETTINGS ORDERED, TOLERATING WELL, NO SOB OR RESP DISTRESS NOTED. ON TELE MONITOR CONTROLLED AFIB WITH HR 80'S. IV SITE GANESH PICC, FLUSHING AND PATENT, SITE C/D/I; ON PROPOFOL DRIP AT 20MCG, TITRATED PER PROTOCOL/ORDER. RIGHT FEM HD CATH NOTED INTACT. GTF RUNNING AT 50ML/HR, MINIMAL RESIDUAL NOTED. MENDOZA CATH IN PLACE, DRAINING YELLOW URINE. ON BILATERAL SOFT WRIST RESTRAINTS FOR PT SAFETY. KEPT PT CLEAN, DRY, AND COMFORTABLE. SAFETY MEASURES IN PLACE; CALL LIGHT WITHIN REACH, SR UP X2, HOB ELEVATED, BED LOCKED AND IN LOW POSITION. WILL CONT TO MONITOR PT CLOSELY.
--- NOTE | 2019-10-17 07:20 | NUR ---
RN NOTE: Received patient in bed, sedated and intubated with ETT 7.5 attached to lip line at 22 cm with mechanical ventilator setting of AC 14 TV 450 Fio2 40% PEEP 5. Patient was saturating 100%. Not on any form of distress and no facial grimacing noted. HOB elevated at 35 degree. food service ambassador showed controlled atrial fibrillation HR= 83. (R) UA PICC line in placed with transparent dressing clean and dry and was infusing Diprivan @20mcg/kg/min which kept the patient sedated. (B) soft wrist restraints were also in placed to prevent the patient from pulling medical lines and tubings. On GT feeding of Glucerna 1.2 @ 50ml/hr with no gastric residual noted. Carcamo catheter in placed with minimal yellow urine draining to gravity. (R) femoral HD catheter was noted intact and with clean transparent dressing. Awaiting for the HD nurse for today. Bed alarmed and locked at all times. Needs anticipated. Oral care was rendered.
[2019-10-17] MEDS: ACETYLCYSTEINE 10% SOLN 400 MG/4 ML VIAL NEB SCH ×3 (07:50→23:17)
[2019-10-17] MEDS ORDERED: PHARMACY TO CHANGE PO MEDS TO GT/NG XX PRN (08:00)
[2019-10-17] MEDS ORDERED: DEXTROSE 50%-WATER 50 ML DISP.SYRIN IV PRN (08:00)
[2019-10-17] MEDS: PANTOPRAZOLE 40 MG TABLET.DR PO SCH (08:09)
[2019-10-17] MEDS: ALENDRONATE 70 MG TABLET PO SCH (08:09)
[2019-10-17] MEDS: CALCIUM CARB 250MG /VITAMIN D 1 UDTAB PO SCH (08:09)
[2019-10-17] MEDS: MEROPENEM 500 MG in IV NS 0.9% 50 ML IV SCH ×2 (08:09→20:31)
[2019-10-17] MEDS: APIXABAN 2.5 MG TABLET PO SCH (08:12)
[2019-10-17] MEDS ORDERED: GUAIFENESIN/D-METHORPHAN HB 5 ML UDC NG PRN (08:21)
[2019-10-17] MEDS ORDERED: ALENDRONATE 70 MG TABLET PO SCH (08:25)
[2019-10-17] MEDS ORDERED: MAGNESIUM HYDROXIDE 30 ML UDC GT PRN (08:30)
[2019-10-17] MEDS ORDERED: HYDROCODONE/APAP 5/325MG 1 EACH TABLET GT PRN (08:30)
[2019-10-17] MEDS ORDERED: ACETAMINOPHEN 650 MG/20.3 ML UDC GT PRN (08:30)
[2019-10-17] MEDS ORDERED: MAG HYDROX/AL HYDROX/SIMETH 30 ML UDC GT PRN (08:30)
[2019-10-17] MEDS: CALCIUM CARB 250MG /VITAMIN D 1 UDTAB GT SCH (08:43)
[2019-10-17] MEDS: APIXABAN 2.5 MG TABLET GT SCH ×2 (08:43→16:16)
--- NOTE | 2019-10-17 08:43 | NUR ---
RN NOTE: Called and spoke with isabelle Lugo regarding the patient's PO medications mainly the Eliquis and Calcium Carbonate. ALL morning medications were administered via GT.
[2019-10-17 08:54] LABS: ABG BASE EXCESS 2.4 mmol/L; ABG OXYGEN SATURATION 97.6 % (92.0-98.5); ABG PCO2 35.2 mmHg (35.0-45.0); ABG PH 7.485 (7.350-7.450); ABG PO2 104.1 mmHg (75.0-100.0); AaDO2 140.6 mmHg; COHb 1.1 % (0.5-1.5); MetHb 0.9 % (0.0-1.5); O2Hb 95.6 % (94.0-97.0); PEEP,BG 5 cm H2O; SITE, ABG Right Radial; VT, ABG 450 mL
[2019-10-17] MEDS ORDERED: PANTOPRAZOLE 40 MG/PACK PACK GT SCH (09:00)
--- NOTE | 2019-10-17 10:30 | NUR ---
RN NOTE: Dr. Olivia was made aware of the ABG result No new order given.
[2019-10-17] MEDS: BLOOD SUGAR DIAGNOSTIC 1 EACH STRIP IN SCH ×2 (11:24→17:47)
[2019-10-17] MEDS ORDERED: VANCOMYCIN 500 MG in IV D5W 100 ML IV PRN (11:30)
[2019-10-17] MEDS ORDERED: Magnesium 1GM/D5W 100ML PREMIX 100 ML IV SCH (11:30)
--- NOTE | 2019-10-17 11:30 | NUR ---
RN NOTE: Urine sample was sent to lab for urinalysis.
[2019-10-17] MEDS: INSULIN REGULAR, HUMAN 100 UNIT/ML 3 ML VIAL SQ PRN ×2 (11:31→17:48)
--- NOTE | 2019-10-17 12:00 | NUR ---
RN NOTE: Patient had HD today and 1L fluid was removed. Patient's daughter Laina Wren was at the bedside and was given update regarding the patient's condition.
[2019-10-17] MEDS: DILTIAZEM HCL 30 MG TABLET GT SCH ×2 (13:21→20:31)
[2019-10-17] MEDS: hydrALAZINE HCL 50 MG TABLET NG SCH ×2 (13:21→20:32)
--- NOTE | 2019-10-17 14:24 | NUR ---
RN NOTE: Called and spoke with isabelle Lugo regarding the patient's Vancomycin post HD. She was given information that the patient had HD today but the Vancomycin dose was given at 0500 today prior to HD since patient's Vancomycin was not dose as a HD patient. Per isabelle Lugo she will review the chart again and will get back to the nurse regarding the Vancomycin.
--- NOTE | 2019-10-17 14:45 | NUR ---
RN NOTE: Received a telephone call from isabelle Lugo and according to her no need to draw the Vancomycin trough for today and DO NOT give the dose of Vancomycin for today since it was administered this morning prior to HD. Vancomycin trough was ordered for tomorrow morning.
--- NOTE | 2019-10-17 17:21 | NUR ---
RT NOTE: PATIENT RECEIVED ORALLY INTUBATED WITH 7.5 ETT SECURED AT 22 CM MID LIP LINE ON ESPRIT VENT. ALARMS VERIFIED AND AUDIBLE. VENT PLUGGED INTO RED OUTLET. AMBU BAG AT [facility].
[2019-10-17 19:20] LABS: APPEARANCE,URINE CLEAR (CLEAR); BILIRUBIN,URINE NEGATIVE (NEGATIVE); BLOOD, URINE NEGATIVE Ery/uL (NEGATIVE); COLOR,URINE YELLOW (YELLOW); KETONES,URINE NEGATIVE (NEGATIVE); LEUKOCYTE ESTERASE ,URINE TRACE (NEGATIVE); NITRITE, URINE NEGATIVE (NEGATIVE); PROTEIN,URINE 30 mg/dl (NEGATIVE); UGLUCOSE NEGATIVE (NEGATIVE); UROBILINOGEN,URINE 0.2 EU/dL (0.2)
--- NOTE | 2019-10-17 19:22 | NUR ---
RN NOTE: Bedside report was given to VIKRAM Huynh for continuity of care. Patient was calm and sedated in the bed.
--- NOTE | 2019-10-17 19:35 | NUR ---
RN NOTES RECEIVED PATIENT SEDATED WITH DIPRIVAN. ORALLY INTUBATED WITH ETT 7.5 AND 22 CM AT LIP LINE. VENT SETTING OF AC 14 TV450 FIO2 40% AND PEEP 5 TOLERATED WELL NO APPARENT RESPIRATORY DISTRESS. AFIB CONTROLLED IN TELE MONITOR HR 80. SATURATION 100%. GTF GLUCERNA @ 50 ML/HR IS TOLERATING WELL WITH HOB KEPT ELEVATED PATENCY CHECKED RESIDUAL OF 10 CC PRESENT. IV SITE ON GANESH PICC LINE RUNNING W/ DIPRIVAN @ 20 MCG/KG/MIN EFFECTIVE PATIENT IS CALM AND COOPERATIVE MOVES LEGS ONCE IN AWHILE BUT NOT AGITATED. RIGHT FEMORAL HD CATH IS INTACT WITH CLEAN DRESSING. TURNED AND REPOSITIONED Q2H AND PRN. OFFLOADED EXT WITH PILLOWS. BILATERAL WRIST RESTRAINT KEPT IN PLACED. WILL CLOSELY MONITOR.
[2019-10-17 19:43] LABS: CREATININE, URINE 52.6 MG/DL (30.0-125.0); URINE TOTAL PROTEIN 97.5 mg/dL (0-11.9)
[2019-10-17 19:46] LABS: BACTERIA,URINE 1+ /HPF (None Seen); SQUAMOUS EPITHELIAL CELL,UR 0-2 /HPF (None Seen)
[2019-10-17 19:47] LABS: YEAST,URINE Few /HPF (None Seen)
[2019-10-17 20:36] LABS: EOSINOPHIL,URINE None Seen
[2019-10-17] MEDS: GLUCERNA 1.2 1,000 ML BOTTLE NG PRN (20:42)
--- NOTE | 2019-10-17 22:10 | NUR ---
RECEIVED PT INTUBATED 7.5 ETT SECURED AT 22CM AT THE LIP. NO RESP DISTRESS. PT TOLERATING VENT SETTINGS. VENT ALARMS SET AND AUDIBLE. AMBU BAG AT BEDSIDE. VENT PLUGGED INTO RED OUTLET. CONTINUE [facility] VENT SUPPORT. Addendum: 10/17/19 at 2211 by SILVIA MARSHALL RT Amended: Links added.
[2019-10-18] VITALS (52 sets, daily range): BP systolic 100–172; BP diastolic 42–83
[2019-10-18] MEDS: INSULIN REGULAR, HUMAN 100 UNIT/ML 3 ML VIAL SQ PRN ×2 (00:05→12:25)
[2019-10-18] MEDS: BLOOD SUGAR DIAGNOSTIC 1 EACH STRIP IN SCH ×4 (00:07→17:04)
[2019-10-18] MEDS: ALBUTEROL HALF STRENGTH 1.25 MG/3 ML VIAL.NEB NEB SCH ×6 (03:10→23:01)
[2019-10-18] MEDS: IPRATROPIUM NEB FS 0.5 MG/2.5 ML AMPUL.NEB NEB SCH ×6 (03:10→23:01)
[2019-10-18 04:46] LABS: CARBON DIOXIDE 31 mmol/L (21-32); CHLORIDE 103 mmol/L (98-107); CREATININE 2.2 mg/dL (0.6-1.3); GLUCOSE 111 mg/dL (74-106); MAGNESIUM 1.8 mg/dL (1.8-2.4); POTASSIUM 4.7 mmol/L (3.5-5.1); SODIUM SERUM 138 mmol/L (136-145); UREA NITROGEN, BLOOD 33 mg/dL (7-18)
[2019-10-18] MEDS: hydrALAZINE HCL 50 MG TABLET NG SCH ×3 (04:48→20:32)
[2019-10-18] MEDS: DILTIAZEM HCL 30 MG TABLET GT SCH ×3 (04:49→20:31)
--- NOTE | 2019-10-18 07:10 | NUR ---
RN NOTE PATIENT REMAINED SEDATED WITH DIPRIVAN TITRATED PROTOCOL ORDERED. VSS. AFEBRILE. NO ACUTE RESPIRATORY DISTRESS. AFIB ON TELE MONITOR. ETT AND VENT SETTING TOLERATED WELL. PICC LINE PATENT HOB KEPT ELEVATED. GT TOLERATED WELL. NO SIGNIFICANT CHANGES THROUGHOUT THE SHIFT. ENDORSED CONTINUITY OF CARE TO AM NURSE.
[2019-10-18] MEDS: ACETYLCYSTEINE 10% SOLN 400 MG/4 ML VIAL NEB SCH ×3 (07:13→23:01)
--- NOTE | 2019-10-18 07:35 | NUR ---
ICU/RN PT IS INTUBATED ON THE VENT AC MODE,SAT O2-100%.V/S STABLE ,AFEBRILE.NO PAIN REPORTED AT THIS TIME.PT IS SEDATED WITH DIPRIVAN .BILATERAL SOFT WRIST RESTRAINS ON ,G-TUBE IN PLACE FEEDING IS ON ORDERED,NO RESIDUAL NOTED.F/C IN PLACE.NO URINE OUTPUT.PT IS ANURIC ON HD . RIGHT FEMORAL HD CATH.RIGHT UPPER ARM PICC LINE.GENERALIZED EDEMA PRESENT.REDNESS ON JEFERSON AREA AND LOWER BACK NOTED.SUCTION PROVIDED .
[2019-10-18] MEDS: MEROPENEM 500 MG in IV NS 0.9% 50 ML IV SCH ×2 (08:11→20:31)
[2019-10-18] MEDS: PANTOPRAZOLE 40 MG/PACK PACK GT SCH (08:11)
[2019-10-18] MEDS: CALCIUM CARB 250MG /VITAMIN D 1 UDTAB GT SCH (08:11)
[2019-10-18] MEDS: APIXABAN 2.5 MG TABLET GT SCH (08:12)
[2019-10-18 08:46] LABS: ABG BASE EXCESS 2.1 mmol/L; ABG OXYGEN SATURATION 96.8 % (92.0-98.5); ABG PH 7.472 (7.350-7.450); ABG PO2 95.7 mmHg (75.0-100.0); AaDO2 148.1 mmHg; COHb 0.5 % (0.5-1.5); O2Hb 95.3 % (94.0-97.0); PEEP,BG 5 cm H2O; SITE, ABG Left Radial; VT, ABG 450 mL
--- NOTE | 2019-10-18 09:00 | NUR ---
ICU/RN DUE MEDS ARE GIVEN ORDERED.
[2019-10-18] MEDS: PROPOFOL 100 ML IV PRN ×2 (12:12→18:42)
--- NOTE | 2019-10-18 18:00 | NUR ---
ICU/RN HD IS OVER 1L OUTPUT.PT TOLERATED PROCEDURE WELL.VANCO LEVEL -15.VANCOMYCIN IV GIVEN ORDERED.PM CARE PROVIDED.DUE MEDS ARE GIVEN ORDERED.SUCTION PROVIDED.REPOSITION FOR COMFORT. BS-134.
[2019-10-18] MEDS ORDERED: IV NS 0.9% 250 ML IV ONE (18:30)
[2019-10-18] MEDS: GLUCERNA 1.2 1,000 ML BOTTLE NG PRN (18:32)
--- NOTE | 2019-10-18 19:20 | NUR ---
RN NOTES PATIENT IS ORALLY INTUBATED WITH ETT 7.5 AND 22 CM AT LIP LINE WITH VENT SETTING OF AC 14 TV450 FIO2 40% AND PEEP 5, NO APPARENT RESPIRATORY DISTRESS. AFIB CONTROLLED IN TELE MONITOR HR 85. SATURATION 100%. GTF GLUCERNA @ 50 ML/HR INTACT AND PATENT, HOB KEPT ELEVATED. IV SITE ON GANESH PICC LINE W/ DIPRIVAN @ 25 MCG/KG/MIN. RIGHT FEMORAL HD CATH, INTACT WITH CLEAN DRESSING. KEPT PT CLEAN AND DRY. TURNED AND REPOSITIONED Q2H AND PRN. OFFLOADED EXT WITH PILLOWS. WILL CONTINUE TO MONITOR.
[2019-10-19] VITALS (45 sets, daily range): BP systolic 111–181; BP diastolic 50–131
[2019-10-19] MEDS: BLOOD SUGAR DIAGNOSTIC 1 EACH STRIP IN SCH ×4 (00:18→18:05)
[2019-10-19] MEDS: INSULIN REGULAR, HUMAN 100 UNIT/ML 3 ML VIAL SQ PRN ×4 (00:21→18:05)
[2019-10-19] MEDS: IPRATROPIUM NEB FS 0.5 MG/2.5 ML AMPUL.NEB NEB SCH ×6 (02:52→23:36)
[2019-10-19] MEDS: ALBUTEROL HALF STRENGTH 1.25 MG/3 ML VIAL.NEB NEB SCH ×6 (02:52→23:36)
[2019-10-19] MEDS: PROPOFOL 100 ML IV PRN ×2 (03:57→17:32)
[2019-10-19 04:40] LABS: BASOPHILS % (AUTO) 0.4 % (0.0-2.0); EOSINOPHILS % (AUTO) 4.2 % (0.0-6.0); HEMATOCRIT 23 % (33-45); HEMOGLOBIN 7.5 g/dL (11.5-14.8); LYMPHOCYTES # (AUTO) 0.4 /CMM (0.8-4.8); MEAN CORPUSCULAR HGB CONC 32 g/dl (31.0-36.0); MEAN CORPUSCULAR VOLUME 86 fL (82-100); MONOCYTES # (AUTO) 0.5 /CMM (0.1-1.30); MONOCYTES % (AUTO) 7.3 % (2.0-12.0); NEUTROPHILS # (AUTO) 5.5 /CMM (1.8-8.9); NEUTROPHILS % (AUTO) 82.1 % (43.0-81.0); PLATELET COUNT (AUTO) 108 /CMM (150-450); RED BLOOD CELL COUNT(AUTO) 2.68 MIL/uL (4.0-5.2); WHITE BLOOD COUNT (AUTO) 6.6 K/uL (4.3-11.0)
[2019-10-19 04:48] LABS: CALCIUM, SERUM 7.9 mg/dL (8.5-10.1); CARBON DIOXIDE 31 mmol/L (21-32); CHLORIDE 106 mmol/L (98-107); GLUCOSE 175 mg/dL (74-106); MAGNESIUM 1.9 mg/dL (1.8-2.4); PHOSPHORUS 2.8 mg/dL (2.5-4.9); POTASSIUM 5.4 mmol/L (3.5-5.1); SODIUM SERUM 142 mmol/L (136-145); UREA NITROGEN, BLOOD 28 mg/dL (7-18)
[2019-10-19] MEDS: hydrALAZINE HCL 50 MG TABLET NG SCH ×3 (05:53→21:53)
[2019-10-19] MEDS: DILTIAZEM HCL 30 MG TABLET GT SCH ×3 (05:53→21:53)
--- NOTE | 2019-10-19 07:15 | NUR ---
RN NOTES PATIENT REMAINED INTUBATED AND SEDATED WITH DIPRIVAN TITRATED PROTOCOL ORDERED. AFEBRILE. VSS WITHOUT PRESSOR. NO SIGNIFICANT CHANGES THROUGHOUT THE SHIFT. ALL DUE MEDICINE TOLERATED WELL. IV ATB TOLERATED WELL WITHOUT ASE. INCONTINENT CARE RENDERED. F/C KEPT OFF FROM THE FLOOR WITH SMALL AMT. OF URINE. KEPT PT CLEAN AND DRY. TURNED AND REPOSITIONED Q2H AND PRN. ENDORSED CONTINUITY OF CARE TO AM NURSE.
[2019-10-19] MEDS: ACETYLCYSTEINE 10% SOLN 400 MG/4 ML VIAL NEB SCH ×3 (07:24→23:36)
--- NOTE | 2019-10-19 07:25 | NUR ---
RT PATIENT REC'D ORALLY INTUBATED ON [facility] VENT WITH ORDERED SETTINGS ANTONIA WELL. VENT ALARMS CHECKED + AUDIBLE. AIRWAY SUCTIONED, PATENT AND SECURE. PATIENT SEDATED AND IN NO DISTRESS. AMBU BAG AT HOB. Addendum: 10/19/19 at 1031 by BAYLEE BARKER RT Amended: Links added.
--- NOTE | 2019-10-19 07:58 | NUR ---
DAG SPRAYER: pt is sedated with 20 mcg/kg/m Diprivan, rest now, reactive by touch/light pain with grimacing, arms weak activity, no SOB, FiO2 40%, O2 sat over 96%, Afib HR 80-90, SBP over 90, GTF residual 10ml, keep HOB over 40, R.leg DVT/on Eliquis, H/H 7.5/23
[2019-10-19] MEDS: CALCIUM CARB 250MG /VITAMIN D 1 UDTAB GT SCH (08:19)
[2019-10-19] MEDS: PANTOPRAZOLE 40 MG/PACK PACK GT SCH (08:19)
[2019-10-19] MEDS: MEROPENEM 500 MG in IV NS 0.9% 50 ML IV SCH (08:20)
--- NOTE | 2019-10-19 08:30 | NUR ---
SHIRT SEWER: waiting ABG, pt. was suctioned well, got SBP 160-170, grimacing, coughing, restless, RR 17-20, arms activity+, increased Diprivan to 25 mcg/kg/m
--- NOTE | 2019-10-19 09:06 | NUR ---
WELDING MACHINE SETTER: is in room, updated with pt current condition, VS, suction amount, I/O, GTF, wants to speak with family re possible trach placement, ok to start sedation vacation and see reaction. Pharmacy called/needs triglycerides level
[2019-10-19] MEDS: ENOXAPARIN SODIUM 60 MG/0.6 ML DISP.SYRIN SQ SCH (09:21)
--- NOTE | 2019-10-19 10:30 | NUR ---
LIVESTOCK NUTRITIONIST: pt is without sedation 30mins, unable to open eyes, grimacing, unable to follow commands, arms/legs activity+, strong coughing, biting ETT, O2sat. WNL 96-98%, RR 16-22, SBP up to 170, HR around 100, updated: resume sedation
--- NOTE | 2019-10-19 11:30 | NUR ---
TRUCK OPERATOR: ANGE Beck is in room, updated with VS, sedation vacation, IVF, GTF, I/O, labs, spoke with family, plan: probably trach placement, pt family wants to get meeting in next 2-3 days
--- NOTE | 2019-10-19 19:30 | NUR ---
ENVIRONMENTAL COMMUNICATIONS SPECIALIST NOTE RECEIVED PT INTUBATED AND SEDATED. VENT SETTINGS WELL TOLERATED. BREATHING UNLABORED. TELE- AFIB CONTROLLED. GANESH PICC WITH DIPRIVAN INFUSING @ 20MCG/KG/MIN. GT FEEDING INFUSING WITHOUT RESIDUALS NOTED. MENDOZA CATHETER IN PLACE AND DRAINING. WILL CONTINUE TO MONITOR.
[2019-10-20] VITALS (48 sets, daily range): BP systolic 118–180; BP diastolic 45–92
[2019-10-20] MEDS: BLOOD SUGAR DIAGNOSTIC 1 EACH STRIP IN SCH ×4 (00:34→18:37)
[2019-10-20] MEDS: hydrALAZINE HCL IV 20 MG VIAL IV PRN (02:39)
[2019-10-20] MEDS: GLUCERNA 1.2 1,000 ML BOTTLE NG PRN ×2 (03:26→23:37)
[2019-10-20] MEDS: IPRATROPIUM NEB FS 0.5 MG/2.5 ML AMPUL.NEB NEB SCH ×6 (03:30→23:08)
[2019-10-20] MEDS: ALBUTEROL HALF STRENGTH 1.25 MG/3 ML VIAL.NEB NEB SCH ×6 (03:30→23:08)
[2019-10-20 04:34] LABS: BASOPHILS % (AUTO) 0.6 % (0.0-2.0); EOSINOPHILS % (AUTO) 6.8 % (0.0-6.0); HEMATOCRIT 24 % (33-45); HEMOGLOBIN 7.6 g/dL (11.5-14.8); LYMPHOCYTES # (AUTO) 0.8 /CMM (0.8-4.8); LYMPHOCYTES % (AUTO) 10.6 % (20.0-44.0); MEAN CORPUSCULAR HGB CONC 32 g/dl (31.0-36.0); MEAN CORPUSCULAR VOLUME 86 fL (82-100); MONOCYTES # (AUTO) 0.7 /CMM (0.1-1.30); MONOCYTES % (AUTO) 9.5 % (2.0-12.0); NEUTROPHILS # (AUTO) 5.5 /CMM (1.8-8.9); NEUTROPHILS % (AUTO) 72.5 % (43.0-81.0); PLATELET COUNT (AUTO) 131 /CMM (150-450); RED BLOOD CELL COUNT(AUTO) 2.76 MIL/uL (4.0-5.2); WHITE BLOOD COUNT (AUTO) 7.5 K/uL (4.3-11.0)
[2019-10-20 04:44] LABS: CALCIUM, SERUM 7.8 mg/dL (8.5-10.1); CARBON DIOXIDE 30 mmol/L (21-32); CHLORIDE 104 mmol/L (98-107); CREATININE 2.5 mg/dL (0.6-1.3); GLUCOSE 109 mg/dL (74-106); PHOSPHORUS 3.3 mg/dL (2.5-4.9); POTASSIUM 5.8 mmol/L (3.5-5.1); SODIUM SERUM 139 mmol/L (136-145); UREA NITROGEN, BLOOD 37 mg/dL (7-18)
[2019-10-20 05:27] LABS: FERRITIN 132 ng/mL (8-388)
[2019-10-20] MEDS: DILTIAZEM HCL 30 MG TABLET GT SCH ×3 (05:43→21:53)
[2019-10-20] MEDS: hydrALAZINE HCL 50 MG TABLET NG SCH ×3 (05:43→21:52)
[2019-10-20 05:47] LABS: IRON, SERUM 23 ug/dl (50-175); TOTAL IRON BINDING CAPACITY 150 ug/dl (250-450)
[2019-10-20] MEDS: INSULIN REGULAR, HUMAN 100 UNIT/ML 3 ML VIAL SQ PRN ×3 (05:53→18:36)
[2019-10-20] MEDS: PROPOFOL 100 ML IV PRN ×2 (06:13→16:41)
--- NOTE | 2019-10-20 07:19 | NUR ---
EQUIPMENT MONITOR PHOTOTYPESETTING NOTE REMAINED STABLE DURING SHIFT. NO ACUTE DISTRESS NOTED. VENT SETTINGS TOLERATED. ALL NEEDS ATTENDED TO PROMPTLY. REPOSITIONED Q2H. SUCTIONED NEEDED. WILL ENDORSE TO NEXT SHIFT FOR CONTINUITY OF CARE.
--- NOTE | 2019-10-20 07:45 | NUR ---
PARKING TECHNICIAN: pt is sedated well with 20 mcg/kg/m Diprivan, reactive by touch with face grimacing, arms/legs trace activity, O2sat. over 96%, no SOB, afib controlled/HR 70-90, SBP over 100 below 160, getting HD
[2019-10-20] MEDS: ACETYLCYSTEINE 10% SOLN 400 MG/4 ML VIAL NEB SCH ×3 (07:49→23:08)
[2019-10-20] MEDS: PANTOPRAZOLE 40 MG/PACK PACK GT SCH (08:41)
[2019-10-20] MEDS: CALCIUM CARB 250MG /VITAMIN D 1 UDTAB GT SCH (08:41)
[2019-10-20] MEDS: ENOXAPARIN SODIUM 60 MG/0.6 ML DISP.SYRIN SQ SCH (08:41)
--- NOTE | 2019-10-20 10:30 | NUR ---
LEASING COORDINATOR: updated with pt.status
--- NOTE | 2019-10-20 11:30 | NUR ---
HIGH DENSITY TALC COATER OPERATOR: Roderick,VESSEL WELDER is in room, updated with pt.current condition, VS, high BP episodes, sedation level, I/O, HD done, GTF, waiting family meeting
--- NOTE | 2019-10-20 13:30 | NUR ---
STRIKER OUT: per pt family decision: no trach option with possible anticipate extubation tomorrow, SIMV/ABG per tomorrow
--- NOTE | 2019-10-20 16:25 | NUR ---
RT RECEIVED PT ORALLY INTUBATED WITH 7.5 ETT @ 22CM AT THE LIP. CITY WELLNESS COORDINATOR DONE. VENT PLUGGED INTO RED OUTLET. ETT SECURED BY ANCHOR FAST. TX'S GIVEN ORDERED. NO ADVERSE REACTIONS OBSERVED. SUCTIONED SMALL AMOUNTS OF DUQUE SECRETIONS. NO SOB NOTED. ALARMS ON AND WORKING PROPERLY. WILL CONTINUE TO MONITOR THE PATIENT FOR ANY CHANGES. Addendum: 10/20/19 at 1830 by CHAZ SCHRADER RT Amended: Links added.
--- NOTE | 2019-10-20 19:25 | NUR ---
ICU/RN notes Patient received sedated on Diprivan 20meq/kg/min. respond to painful stimuli, facial grimacing noted. intubated with 7.5 ETT secured @22 cm lip line with prescribed vent settings. In no acute distress, breathing even and unlabored. No SOB. G-tube in patent with feeding as ordered. Tolerating well. HOB semi merlos. on monitor with controlled a-fib rate between 70-90's. Faley cath in place, patent, draining well with yellow color urine. Safety maintained, bed at the lowest locked position. Call light within reach. Will continue to monitor as per plan of care.
--- NOTE | 2019-10-20 19:48 | NUR ---
RECEIVED PT ORALLY INTUBATED WITH 7.5 ETT SECURED @ 22 CM LIP LINE ON VENT WITH NOTED SETTINGS . NO RESP DISTRESS NOTED. PT TOLERATING VENT SETTINGS. CUFF SENIOR TABLEAU DEVELOPER. BREATHING TX GIVEN PER MD'S ORDER. NO ADVERSE REACTION NOTED. SX'D DONE PRN. VENT ALARMS SET AND AUDIBLE. AMBU BAG AT BEDSIDE. VENT PLUGGED INTO RED OUTLET. WILL CONTINUE TO MONITOR THE PT T/O SHIFT.
--- NOTE | 2019-10-20 22:00 | NUR ---
PATIENT BP 165/50, HR 93. PO BP MEDS GIVEN ORDERED. WILL CONTINUE TO MONITOR
[2019-10-21] VITALS (28 sets, daily range): BP systolic 129–177; BP diastolic 52–112
[2019-10-21] MEDS: BLOOD SUGAR DIAGNOSTIC 1 EACH STRIP IN SCH ×4 (00:21→18:08)
[2019-10-21] MEDS: IPRATROPIUM NEB FS 0.5 MG/2.5 ML AMPUL.NEB NEB SCH ×6 (03:08→23:24)
[2019-10-21] MEDS: ALBUTEROL HALF STRENGTH 1.25 MG/3 ML VIAL.NEB NEB SCH ×6 (03:08→23:24)
[2019-10-21 04:39] LABS: BASOPHILS # (AUTO) 0.1 /CMM (0.0-0.2); BASOPHILS % (AUTO) 0.8 % (0.0-2.0); EOSINOPHILS % (AUTO) 6.5 % (0.0-6.0); HEMATOCRIT 23 % (33-45); HEMOGLOBIN 7.4 g/dL (11.5-14.8); LYMPHOCYTES # (AUTO) 0.8 /CMM (0.8-4.8); LYMPHOCYTES % (AUTO) 10.6 % (20.0-44.0); MEAN CORPUSCULAR HGB CONC 33 g/dl (31.0-36.0); MEAN CORPUSCULAR VOLUME 86 fL (82-100); MONOCYTES # (AUTO) 0.6 /CMM (0.1-1.30); MONOCYTES % (AUTO) 7.9 % (2.0-12.0); NEUTROPHILS # (AUTO) 5.8 /CMM (1.8-8.9); NEUTROPHILS % (AUTO) 74.2 % (43.0-81.0); PLATELET COUNT (AUTO) 97 /CMM (150-450); RED BLOOD CELL COUNT(AUTO) 2.63 MIL/uL (4.0-5.2); WHITE BLOOD COUNT (AUTO) 7.8 K/uL (4.3-11.0)
[2019-10-21] MEDS: PROPOFOL 100 ML IV PRN (04:45)
[2019-10-21 04:52] LABS: CALCIUM, SERUM 7.5 mg/dL (8.5-10.1); CARBON DIOXIDE 30 mmol/L (21-32); CHLORIDE 103 mmol/L (98-107); GLUCOSE 98 mg/dL (74-106); MAGNESIUM 1.9 mg/dL (1.8-2.4); PHOSPHORUS 3.7 mg/dL (2.5-4.9); POTASSIUM 4.8 mmol/L (3.5-5.1); SODIUM SERUM 138 mmol/L (136-145); UREA NITROGEN, BLOOD 33 mg/dL (7-18)
[2019-10-21] MEDS: hydrALAZINE HCL 50 MG TABLET NG SCH ×3 (05:51→21:27)
[2019-10-21] MEDS: DILTIAZEM HCL 30 MG TABLET GT SCH ×3 (06:04→21:27)
[2019-10-21] MEDS ORDERED: DILTIAZEM HCL 30 MG TABLET ONE (06:14)
[2019-10-21 06:39] LABS: EOSINOPHILS % (MANUAL) 5 % (0-4); LYMPHOCYTES % (MANUAL) 8 % (16-48)
[2019-10-21 06:40] LABS: MONOCYTES % (MANUAL) 5 % (0-11.0); NEUTROPHILS % (MANUAL) 82 (42-76)
--- NOTE | 2019-10-21 07:23 | NUR ---
Remained in stable condition. No Significant change in condition noted. Kept clean and dry. Needs attendant. In no acute distress. Sedated with Diprivan at 20meq/kg/min. respond to painful stimuli. Safety maintained, bed at the lowest locked position. Endorsed to AM shift nurse for LEANDER.
[2019-10-21] MEDS: ACETYLCYSTEINE 10% SOLN 400 MG/4 ML VIAL NEB SCH ×3 (07:35→23:24)
[2019-10-21] MEDS: CALCIUM CARB 250MG /VITAMIN D 1 UDTAB GT SCH (08:36)
[2019-10-21] MEDS: PANTOPRAZOLE 40 MG/PACK PACK GT SCH (08:36)
[2019-10-21] MEDS: ENOXAPARIN SODIUM 60 MG/0.6 ML DISP.SYRIN SQ SCH (08:37)
--- NOTE | 2019-10-21 09:00 | NUR ---
curriculum coordinator note per dr svetlana nava to give lovenox at this time, aware of low platelet
--- NOTE | 2019-10-21 10:13 | NUR ---
agriculture internship note family at bedside, dr norman spoke with family regarding planned extubation around 1300 and keeping patient comfortable. family verbalized understanding.
--- NOTE | 2019-10-21 10:32 | NUR ---
POLICE SUPERINTENDENT NOTE SPOKE WITH DAUGHTER, INFORMED REGARDING FOR PLANNED EXTUBATION TODAY AT 1300, PER DAUGHTER THEY CAN NOT BE HERE FOR IT AND WOULD LIKE TO BE PRESENT WHEN IT DOES HAPPEN. PER DAUGHTER THEY CAN COME TOMORROW MORNING. DR TILLMAN INFORMED AND WILL HOLD EXTUBATION FOR NOW TIL TOMORROW.
[2019-10-21 11:51] LABS: ABG BASE EXCESS 4.9 mmol/L; ABG OXYGEN SATURATION 96.9 % (92.0-98.5); ABG PCO2 39.1 mmHg (35.0-45.0); ABG PH 7.484 (7.350-7.450); ABG PO2 102.7 mmHg (75.0-100.0); AaDO2 137.5 mmHg; COHb 0.2 % (0.5-1.5); MetHb 0.6 % (0.0-1.5); O2Hb 96.1 % (94.0-97.0); PEEP,BG 5 cm H2O; SITE, ABG Right Radial; VT, ABG 450 mL
[2019-10-21] MEDS: INSULIN REGULAR, HUMAN 100 UNIT/ML 3 ML VIAL SQ PRN (13:03)
[2019-10-21] MEDS: hydrALAZINE HCL IV 20 MG VIAL IV PRN (18:09)
--- NOTE | 2019-10-21 19:25 | NUR ---
ICU/RN notes Patient received, sedated, off Diprivan since AM, per Nurse. Intubated with 7.5 ETT secured @22 cm lip line with prescribed vent settings. In no acute distress, breathing even and unlabored. No SOB. G-tube in place, patent with feeding as ordered. Tolerating well. HOB semi merlos. on monitor with a-fib. Faley cath in place, patent, draining well with yellow color urine. IV sites and HD site with no S/S of infection, dressing intact. Safety maintained, bed at the lowest locked position. Call light within reach. Will continue to monitor as per plan of care.
--- NOTE | 2019-10-21 19:29 | NUR ---
RECEIVED PT ORALLY INTUBATED WITH 7.5 ETT SECURED @ 22 CM LIP LINE ON VENT WITH THE SETTINGS OF SIMV 4, TV 450,PEEP 5 PS 15, FIO2 40%. NO RESP DISTRESS NOTED. PT TOLERATING VENT SETTINGS. CUFF MILITARY POLICE OFFICER. BREATHING TX GIVEN PER MD'S ORDER. NO ADVERSE REACTION NOTED. SX'D DONE PRN. VENT ALARMS SET AND AUDIBLE. AMBU BAG AT BEDSIDE. VENT PLUGGED INTO RED OUTLET. WILL CONTINUE TO MONITOR THE PT T/O SHIFT.
--- NOTE | 2019-10-21 19:45 | NUR ---
agricultural sciences professor note no distress noted. no s/s of pain or discomfort. tolerating current vent settings. tolerating gtf. kept clean and dry. f/c intact draining by gravity. turned and repositioned q2 and prn. hob elevated. side rails up and locked. bed kept at lowest position. continuity of care endorsed to pm nurse.
[2019-10-21] MEDS: MORPHINE SULFATE INJ 2 MG/ML DISP.SYRIN IVP PRN (20:07)
--- NOTE | 2019-10-21 20:29 | NUR ---
Patient is getting more awake and restless, fighting vent settings. Patient been off Diprivan since AM. Per AM shift nurse patient was sleeping throughout her shift. PRN morphine was given earlier with effectiveness. Patient is schedule for decannulation in AM per AM shift nurse. Called Dr. Simpson, relayed patient current status, with new order. Noted and carried out.
[2019-10-21] MEDS: LORAZEPAM INJ 2 MG/ML VIAL IV PRN (23:45)
[2019-10-22] VITALS (21 sets, daily range): BP systolic 110–187; BP diastolic 62–103
[2019-10-22] MEDS: BLOOD SUGAR DIAGNOSTIC 1 EACH STRIP IN SCH ×3 (00:23→11:20)
[2019-10-22] MEDS: INSULIN REGULAR, HUMAN 100 UNIT/ML 3 ML VIAL SQ PRN ×2 (00:26→11:21)
[2019-10-22] MEDS: hydrALAZINE HCL IV 20 MG VIAL IV PRN (01:07)
[2019-10-22] MEDS: ALBUTEROL HALF STRENGTH 1.25 MG/3 ML VIAL.NEB NEB SCH ×2 (03:00→07:01)
[2019-10-22] MEDS: IPRATROPIUM NEB FS 0.5 MG/2.5 ML AMPUL.NEB NEB SCH ×3 (03:00→11:14)
[2019-10-22] MEDS: GLUCERNA 1.2 1,000 ML BOTTLE NG PRN (05:00)
[2019-10-22] MEDS: DILTIAZEM HCL 30 MG TABLET GT SCH (05:14)
[2019-10-22] MEDS: hydrALAZINE HCL 50 MG TABLET NG SCH (05:14)
[2019-10-22] MEDS: ACETYLCYSTEINE 10% SOLN 400 MG/4 ML VIAL NEB SCH (07:01)
--- NOTE | 2019-10-22 07:18 | NUR ---
ICU/RN notes Patient more awake now, with periods of restlessness. Remained Intubated with 7.5 ETT secured @22 cm lip line with prescribed vent settings. In no acute distress, breathing even and unlabored. No SOB. G-tube in place, patent with feeding as ordered. Tolerating well. HOB semi merlos. on monitor with a-fib. Faley cath in place, patent, draining well with yellow color urine. IV sites and HD site with no S/S of infection, dressing intact. Due meds given as ordered. Tolerated well. Safety maintained, bed at the lowest locked position. Call light within reach. Kept clean and dry. Needs attendant. No significant change in condition. Will Endorse to AM Shift nurse for LEANDER.
--- NOTE | 2019-10-22 08:00 | NUR ---
ICU/RN: INITIAL NOTES,AM RECEIVED BEDSIDE REPORT FROM NIGHT NURSE. PT OBTUNDED, DOES NOT OPEN EYES, DOES NOT FOLLOW COMMANDS. PT INTUBATED ON VENT SETTINGS ORDERED BY . JASON Bonilla.JORGITO OF TELE. POSSIBLE TERMINAL EXTUBATION TODAY, WAITING FOR DAUGHTER TO ARRIVE. AND ZHEN OPEN PIT QUARRY SUPERVISOR SPOKE TO FAMILY EXTENSIVELY. TUBE FEEDING INFUSING, TOLERATING WELL. SKIN INTACT. PICC LINE PATENT AND INTACT, NO S/S OF INFECTION OR INFILTRATION NOTED. ALL NEEDS WILL BE ATTENDED TO, SAFETY MEASURES TAKEN, BED IN LOW POSITION, SIDE RAILS UP,CALL LIGHT WITHIN REACH. WILL CONTINUE CARE.
[2019-10-22] MEDS: ENOXAPARIN SODIUM 60 MG/0.6 ML DISP.SYRIN SQ SCH (08:09)
[2019-10-22] MEDS: PANTOPRAZOLE 40 MG/PACK PACK GT SCH (08:09)
[2019-10-22] MEDS: CALCIUM CARB 250MG /VITAMIN D 1 UDTAB GT SCH (08:09)
--- NOTE | 2019-10-22 09:45 | NUR ---
ICU/RN: DISTRESS NOTED, PER PT PLACED BACK ON FULL SUPPORT ON VENT SETTINGS.
--- NOTE | 2019-10-22 11:45 | NUR ---
ICU/RN: FAMILY OF PT AT BEDSIDE. DISCUSSED PLAN OF CARE. FAMILY DECIDED TO GO AHEAD WITH TERMINAL EXTUBATION. WILL INITIATE MORPHINE DRIP AND EXTUBATE IN ONE HOUR AFTER START OF DRIP. WILL CONTINUE TO MONITOR AND ASSESS.
[2019-10-22] MEDS ORDERED: MORPHINE SULFATE INJ 10 MG/ML DISP.SYRIN IV ONE (12:00)
[2019-10-22] MEDS ORDERED: MORPHINE SULFATE INJ 4 MG/ML DISP.SYRIN IV ONE (13:00)
--- NOTE | 2019-10-22 13:09 | NUR ---
ICU/RN: PER MD ORDER MORPHINE DRIP STARTED PER PROTOCOL. VERIFIED WITH ANOTHER RN. WILL CONTINUE TO MONITOR. WILL EXTUBATE IN ONE HOUR AFTER DRIP INITIATION.FAMILY AT BEDSIDE, UPDATES GIVEN.
--- NOTE | 2019-10-22 14:45 | NUR ---
ICU/RN: PT TERMINALLY EXTUBATED. PLACED ON 2LITERS NASAL CANULA. FAMILY AT BEDSIDE. PT COMFORT CARE. WILL KEEP COMFORTABLE. NO ACUTE DISTRESS NOTED. ON MORPHINE DRIP 3MG/HR.
--- NOTE | 2019-10-22 17:30 | NUR ---
ICU/RN: PT TRANSFERRED TO [facility]. BEDSIDE REPORT ENDORSED TO VIKRAM SAMUEL. ALL BELONGINGS SENT WITH PT. PT ON 2 LITERS NASAL CANULA FOR COMFORT, NO DISTRESS NOTED. FAMILY NOTIFIED OF TRANSFER. BED BATH GIVEN, CLEAN AND DRY. CHECKED WITH 2 RNS MORPHINE DRIP WHICH IS INFUSING AT 3MG/HR.
--- NOTE | 2019-10-22 17:45 | NUR ---
MS RN NOTES RECEIVED PATIENT FROM ICU REPORT GIVEN BY JAVI SUE. PATIENT OBTUNDED, APPEARS COMFORTABLE, NO FACIAL GRIMACING NOTED. NO ACUTE DISTRESS NOTED. ON O2 @ 2 LPM VIA NASAL CANULA, ON MORPHINE DRIP @ 3MG/HR INFUSING WELL. WITH PEG CLAMPED , MENDOZA CATHETER INTACT. RIGHT FEMORAL DIALYSIS ACCESS INTACT WITH DRESSING, SAFETY MEASURES IN PLACE. CALL LIGHT WITHIN REACH, WILL CONTINUE TO MONITOR ACCORDINGLY.
--- NOTE | 2019-10-22 19:00 | NUR ---
MS RN NOTES PATIENT IN BED OBTUNDED, APPEARS COMFORTABLE, NO FACIAL GRIMACING NOTED. NO ACUTE DISTRESS NOTED. ON O2 @ 2 LPM VIA NASAL CANULA, ON MORPHINE DRIP @ 3MG/HR INFUSING WELL. WILL ENDORSE TO NIGHT NURSE FOR CONTINUITY OF CARE.
--- NOTE | 2019-10-22 20:20 | NUR ---
MS RN OPENING NOTES: AT 1900 RECEIVED PATIENT IN BED WITH ONLY RESPIRATIONS OF 3/MIN. NON-VERBAL, PATIENT APPEARS COMFORTABLE, NO MOANING, NO FACIAL GRIMACES. WITH MORPHINE DRIP AT 3MG/ HOUR ON RIGHT UPPER ARM PICC LINE. WITH O2 AT 2L/MIN. NASAL CANNULA. WITH PEG INTACT AND CLAMPED, NO DRAINAGE, SKIN AROUND THE SITE IS CLEAN AND DRY, INTACT. WITH MENDOZA CATHETER INTACT,DRAINING TO A YELLOW URINE OUTPUT. WITH RIGHT FEMORAL HD CATH INTACT. BED IN LOWEST AND LOCKED POSITION.HOB ELEVATED AT ALL TIMES AT 30 DEGREES FOR COMFORT.
--- NOTE | 2019-10-22 21:04 | NUR ---
V/S taken by PERFUME COMPOUNDER, afebrile. Recorded.
--- NOTE | 2019-10-23 05:46 | NUR ---
MS RN CLOSING NOTES: PATIENT IN BED, COMFORTABLE. NOT MOANING, NO FACIAL GRIMACES. MORPHINE DRIP STILL AT 3MG/HOUR INFUSING WELL. HOB ELEVATED AT 30 DEGREES AT ALL TIMES FOR COMFORT. WITH MENDOZA CATHETER INTACT,DRAINING YELLOW URINE OUTPUT. WITH PICC LINE ON THE RIGHT UPPER ARM INTACT. PEG INTACT,STILL CLAMPED,SITE IS DRY AND CLEAN,NO DRAINAGE. RIGHT FEMORAL HD CATHETER INTACT. BED IN LOWEST AND LOCKED POSITION.
--- NOTE | 2019-10-23 07:30 | NUR ---
MS/RN OPENING NOTE Patient is resting in bed, A/O x0, showing no signs of acute distress. BP 126/61, HR 120, respiratory rate is 3-4 breaths/min, O2 sat 95% on 2L NC. GANESH Picc line noted, patient is on morphine drip 3mg/hr. right femoral HD cath noted. Carcamo catheter noted. Bed is in lowest position, side rails x2 in upright position. Will continue with comfort measures.
[2019-10-23 08:00] VITALS: BP 126/61
--- NOTE | 2019-10-23 10:02 | NUR ---
MS/RN NOTE Morphine drip increased from 3mg/hr to 4mg/hr with discharge coordinator. Will continue to monitor.
--- NOTE | 2019-10-23 12:50 | NUR ---
MS/RN NOTE Patient BP 120/60, HR 62, O2 sat 100% on 2LNC, respirations 3-4 breaths/min. Patient kept comfortable, family is at the bedside.
[2019-10-23] MEDS ORDERED: KEY,NONCONTROL,TO KEEP IN PYXI 1 EA MC ONE ×2 (13:01→21:45)
--- NOTE | 2019-10-23 13:04 | NUR ---
MS/RN NOTE Changed to new morphine bag total VTBI is 90ml, running at 5ml/hr. Old bag wasted 20ml.
--- NOTE | 2019-10-23 15:23 | NUR ---
MS/RN NOTE Le used to open HOSTING ENGINEER pump. Le returned.
--- NOTE | 2019-10-23 15:26 | NUR ---
MS/RN NOTE Morphine increased to 6mg/hr at this time. Patient remains comfortable.
[2019-10-23 16:00] VITALS: BP_SYST 108; BP_SYST 128; BP_DIAS 63; BP_DIAS 75
--- NOTE | 2019-10-23 17:03 | NUR ---
MS/RN NOTE Increased morphine drip to 8mg/hr. Vital signs BP 128/75, HR 120, respirations 3 breaths/min, T 97.6, O2 98% 2L NC.
[2019-10-23] MEDS: LORAZEPAM INJ 2 MG/ML VIAL IV PRN (18:02)
--- NOTE | 2019-10-23 19:38 | NUR ---
MS/RN CLOSING NOTE Patient is resting in bed, A/O x0, showing no signs of acute distress. Respiratory rate is 3-4 breaths/min, O2 sat 95% on 2L NC. GANESH Picc line noted, patient is on morphine drip 8mg/hr. Zeroed out KILN STACKER pump with clergy member RN. Right femoral HD cath noted. PEG tube noted, clamped. Carcamo catheter noted with 10ml output. Bed is in lowest position, side rails x2 in upright position. Patient kept clean and comfortable throughout shift. Will endorse to clergy member.
--- NOTE | 2019-10-23 20:00 | NUR ---
RN NOTES RECEIVED PATIENT, OBTUNDED, APNEIC, COMFORT MEASURE ONLY, GENERALIZED EDEMA, SCAN URINE OUTPUT VIA MENDOZA CATHETER, MORPHINE DRIP AT 8MG/HR. ELEVATED HR 123, KEPT COMFORTABLE, WILL CONTINUE TO MONITOR
[2019-10-23 20:18] VITALS: BP 107/56
[2019-10-24] MEDS ORDERED: KEY,NONCONTROL,TO KEEP IN PYXI 1 EA MC ONE (02:22)
--- NOTE | 2019-10-24 02:25 | NUR ---
rn notes: morphine drip infusion stopped at 0210. pt . wasted remaining morphine with another rn andrew. wasted amount 13 ml. orange pcs paper completed and signed.
--- NOTE | 2019-10-24 03:23 | NUR ---
RN NOTES CHECKING PATIENT Q30 MINUTES, 0158 NOTED PALLOR, NOT BREATHING, PULSE VERY WEAK 0200 NOTIFIED PROCESS IMPROVEMENT ANALYSTVIKRAM VOGEL OF PATIENT'S NEAR CONDITION, STAYED WITH PATIENT UNTIL THE LAST BREATH 0208 PT UNRESPONSIVE, PALLOR, UNABLE TO FEEL PULSE, NO RESPIRATION, NOT BREATHING, UNABLE TO OBTAIN VITAL SIGNS, PUPIL FIXED AND DILATED, PRONOUNCE BY PROCESS IMPROVEMENT ANALYSTVIKRAM VOGEL. 0209 PROVIDED POST MORTEM CARE 0210 PROCESS IMPROVEMENT ANALYSTVIKRAM VOGEL NOTIFIED RN STARCHER AND TENTER RANGE FEEDER MARIA BERNARD REGARDING OF PATIENT 0210 VIKRAM CARVAJAL NOTIFIED JEANETH FELIZ, DAUGHTER, ABOUT THE PATIENT'S 0237 CONTACTED [facility] PER PROTOCOL AT [phone], SPOKE WITH ALISE, WILL CALL BACK FOR ADDITIONAL INFORMATION [address] TRAN OF PATIENT'S 0245 DAUGHTER JEANETH FELIZ, AND HER AND DTR ARRIVED IN UNIT. PROVIDED PRIVACY AND TIME TO GRIEVE, PROVIDED EMOTIONAL SUPPORT 0249 RECEIVED CALL FROM [facility], SPOKE WITH PATSY, NOTIFIED VIKRAM CARVAJAL THAT PATIENT IS NOT A CANDIDATE FOR REFERRAL. PATIENT'S IS NOT A STRAIGHTENING MACHINE OPERATOR'S' CASE.
--- NOTE | 2019-10-24 03:57 | NUR ---
RN NOTES 0354 NOTIFIED FAMILY OF [facility]ICE [facility] [employer] AND LEFT DETAILED MESSAGE TO ANSWERING SERVICE FOR MEDICAL BILLING SUPERVISOR
--- NOTE | 2019-10-24 04:04 | NUR ---
RN NOTES PAGED DR. TRAN AT [id number], STILL AWAITING CALL BACK
--- NOTE | 2019-10-24 06:15 | NUR ---
DR. TRAN CALLED BACK AND NOTIFIED OF PATIENT'S
== END 2019-10-24 02:08 | disposition expired | DRG 720 ==
LOC: TELE-TD 09:36 → TELE1 11:36 → TELE-TD 14:16 → MEDSG1 10-01 10:28 → TELE1 10-06 10:58 → MEDSG1 10-07 10:54 → TELE1 10-08 18:55 → ICU 10-09 14:59 → TELE-TD 10-13 20:27 → TELE1 10-14 19:11 → ICU 10-15 10:42 → MED 10-22 17:30
PROVIDERS: ADMIT Hospitalist; ATTEND Registered Nurse
PROC: 05HA33Z Insertion of Infusion Device into Left Brachial Vein, Percutaneous Approach (ICD-10-PCS; 2019-09-30)
PROC: 0BH18EZ Insertion of Endotracheal Airway into Trachea, Via Natural or Artificial Opening Endoscopic (ICD-10-PCS; principal; 2019-10-09)
PROC: 0DH63UZ Insertion of Feeding Device into Stomach, Percutaneous Approach (ICD-10-PCS; principal; 2019-10-09)
PROC: 5A1945Z Respiratory Ventilation, 24-96 Consecutive Hours (ICD-10-PCS; principal; 2019-10-09)
PROC: 5A2204Z Restoration of Cardiac Rhythm, Single (ICD-10-PCS; principal; 2019-10-09)
PROC: 0BH17EZ Insertion of Endotracheal Airway into Trachea, Via Natural or Artificial Opening (ICD-10-PCS; 2019-10-15)
PROC: 5A1955Z Respiratory Ventilation, Greater than 96 Consecutive Hours (ICD-10-PCS; 2019-10-15)
PROC: B54BZZA Ultrasonography of Right Lower Extremity Veins, Guidance (ICD-10-PCS; 2019-10-16)
PROC: 06HM33Z Insertion of Infusion Device into Right Femoral Vein, Percutaneous Approach (ICD-10-PCS; 2019-10-16)
PROC: 5A1D70Z Performance of Urinary Filtration, Intermittent, Less than 6 Hours Per Day (ICD-10-PCS; 2019-10-17)
DX: A41.9 Sepsis, unspecified organism (principal); I21.4 Non-ST elevation (NSTEMI) myocardial infarction; J96.21 Acute and chronic respiratory failure with hypoxia; N17.0 Acute kidney failure with tubular necrosis; G93.41 Metabolic encephalopathy; J15.6 Pneumonia due to other Gram-negative bacteria; I13.2 Hypertensive heart and chronic kidney disease with heart failure and with stage 5 chronic kidney disease, or end stage renal disease; J15.9 Unspecified bacterial pneumonia; J90 Pleural effusion, not elsewhere classified; I82.401 Acute embolism and thrombosis of unspecified deep veins of right lower extremity; I46.9 Cardiac arrest, cause unspecified; Z51.5 Encounter for palliative care; Z66 Do not resuscitate; D68.59 Other primary thrombophilia; I12.0 Hypertensive chronic kidney disease with stage 5 chronic kidney disease or end stage renal disease; J96.22 Acute and chronic respiratory failure with hypercapnia; E11.649 Type 2 diabetes mellitus with hypoglycemia without coma; E11.22 Type 2 diabetes mellitus with diabetic chronic kidney disease; E11.65 Type 2 diabetes mellitus with hyperglycemia; I48.91 Unspecified atrial fibrillation; N18.6 End stage renal disease; Z99.2 Dependence on renal dialysis; B37.49 Other urogenital candidiasis; D64.9 Anemia, unspecified; E78.5 Hyperlipidemia, unspecified; E83.42 Hypomagnesemia; E87.1 Hypo-osmolality and hyponatremia; E87.2 Acidosis; I27.20 Pulmonary hypertension, unspecified; I31.3 Pericardial effusion (noninflammatory); I50.9 Heart failure, unspecified; I70.0 Atherosclerosis of aorta; I25.2 Old myocardial infarction; E87.5 Hyperkalemia; J98.11 Atelectasis; K44.9 Diaphragmatic hernia without obstruction or gangrene; M48.54XA Collapsed vertebra, not elsewhere classified, thoracic region, initial encounter for fracture; M81.0 Age-related osteoporosis without current pathological fracture; K82.8 Other specified diseases of gallbladder; I25.10 Atherosclerotic heart disease of native coronary artery without angina pectoris; I07.1 Rheumatic tricuspid insufficiency; J39.8 Other specified diseases of upper respiratory tract; N20.0 Calculus of kidney; R13.10 Dysphagia, unspecified; Y95 Nosocomial condition; Z91.19 Patient's noncompliance with other medical treatment and regimen; Z87.442 Personal history of urinary calculi; Z87.11 Personal history of peptic ulcer disease; Z87.01 Personal history of pneumonia (recurrent); Z83.3 Family history of diabetes mellitus; Z79.01 Long term (current) use of anticoagulants
CPT/HCPCS: 31720; 36410; 36415; 36569; 36600; 43246; 71045-TC; 74018; 74230-TC; 76000-TC; 80048-TC; 80053-TC; 80061-TC; 80202-TC; 81000-TC; 82248-TC; 82570-TC; 82728-TC; 82803-TC; 82962-TC; 83540-TC; 83605-TC; 83735-TC; 83880; 83935-TC; 84100-TC; 84132-TC; 84155-TC; 84300-TC; 84443-TC; 84478-TC; 84484-TC; 84550-TC; 85025-TC; 85730-TC; 86704; 87040-TC; 87070-TC; 87081-TC; 87086-TC; 90935-TC; 92526; 92611-TC; 92950-TC; 93307-TC; 93970-TC; 94002-TC; 94003-TC; 94640-TC; 94760-TC; 94762-TC; 94799-TC; 97112-TC; 97116-TC; 97530-TC; 99082-TC; A4216; A6403; C1750; C1751; C1769; G0378; J0171; J0360; J0692; J1160; J1450; J1650; J1815; J2060; J2185; J2248; J2250; J2270; J2274; J2704; J3370; J3475; J3480; J3490; J7030; J7040; J7042; J7050; J7060; Q9967